=== PATIENT | male | born 1965 | race Caucasian/White ===

== ENCOUNTER 2019-02-20 20:00 | Inpatient (IN) | payer BC ==
[2019-02-20] MEDS: PROPOFOL 10 MG/ML 20 ML VIAL IV ONE ×2 (20:03→21:19)
[2019-02-20 20:09] LABS: Glucose,Whole Blood 205 mg/dL (75-99)
[2019-02-20] MEDS ORDERED: LIDOCAINE 1% INJ 10MG/ML (20 ML MDV) ONE (20:23)
--- NOTE | 2019-02-20 20:30 | ED ---
CPR HPI - General Stated Complaint: Cardiac Arrest Time Seen by Provider: 02/20/19 20:00 Source: EMS, RN notes reviewed Mode of arrival: EMS - History of Present Illness Initial Comments: 20:00 this a 53-year-old male with an unknown past medical history who apparently is been suffering from dyspnea and per EMS diagnosed with pneumonia about a week ago. He was apparently feeling more dyspneic tonight he was also apparently drinking alcohol family called 911. In route the patient collapsed and quit breathing. CPR was initiated patient was found to be in V. fib. He was shocked once with apparently no success he was pulseless and apneic CPR was continued. Upon arrival the patient was found to be unresponsive with CPR and pulseless. Patient had gotten 324 mg aspirin prior to the collapse. Is unknown if he has any ALLERGIES or is on any medications or if he smokes. MD Complaint: other - Related Data Home Medications Medication Instructions Recorded Confirmed Aspirin EC [Ecotrin] 325 mg PO DAILY PRN 02/20/19 02/20/19 Ibuprofen [Motrin Ib] 400 mg PO Q6H PRN 02/20/19 02/20/19 guaiFENesin SYRUP 100MG/5ML 200 mg PO Q6H PRN 02/20/19 02/20/19 [Robitussin] guaiFENesin [Mucinex] 600 mg PO BID PRN 02/20/19 02/20/19 Allergies Allergy/AdvReac Type Severity Reaction Status Date / Time No Known Allergies Allergy Verified 02/20/19 21:54 Review of Systems ROS Statement: Those systems with pertinent positive or pertinent negative responses have been documented in the HPI. ROS Other: All systems not noted in ROS Statement are negative. Limitations: ROS unobtainable due to patients medical condition General Exam - General Exam Comments Initial Comments: Is a well-developed well-nourished unresponsive male who was apneic and pulseless at this time. CPR progress Limitations: altered mental status General appearance: other (Unresponsive) Head exam: Present: atraumatic, normocephalic, normal inspection Eye exam: Present: other (Pupils dilated and sluggish) ENT exam: Present: other (Partial's in place small amount of posterior congestion) Neck exam: Present: normal inspection Respiratory exam: Present: other (Apneic without respiratory [id number]) Cardiovascular Exam: Present: other (Initially pulseless) GI/Abdominal exam: Present: distended (No masses) Rectal exam: Present: deferred Extremities exam: Present: other (No peripheral pulses). Absent: normal capillary refill Back exam: Present: normal inspection Neurological exam: Present: other (Responsive) Psychiatric exam: Present: other (Unresponsive) Skin exam: Present: mottled Course - Reevaluation(s) Reevaluation #1: 02/20/19 20:26 The patient was noted be pulseless when he was hooked up to the monitor he was still in V. fib he was defibrillated with 200 J CPR was continued. Patient did regain pulses. A STEMI alert was called prior to the patient arriving at the hospital. Dr. Ferguson was in the emergency department right after the patient had ROSC. This lady EKG done after the best revealed ST elevation in the anterolateral leads consistent with an acute STEMI. This is consistent with a pre-arrest EKG submitted by EMS. EKG showed a ventricular rate [address]-T QT since QTC 294 43 low-voltage Reevaluation #2: 02/20/19 20:29 Patient did require propofol for sedation his partials were removed the time of intubation. Repeat EKG showed a sinus tachycardia rate of 141. Interval 1:30 QRS duration 80 QT since QTC 292/447elevation in the anterolateral leads c onsistent with the initial EKGs. 02/20/19 20:36 The case with and she discuss with Dr. Moore Reevaluation #3: 02/20/19 23:02 I did discuss the findings with patient's family who did arrive. Patient does have a history of 2 pack a day smoking as well as alcohol abuse with up to 3/5s of liquor and multiple cases of beer per week. I did discuss the findings and the progression of events with the patient's family members were present Procedures - Intubation Laryngoscope: fiber optic video scope Size: 4 ET Tube Size: 8 ET Tube Uncuffed: No (Left) Tube Secured Depth (cm): 23 Tube Secured Location: lips Tube Placement Confirmation: visualized tube passing through cords, equal breath sounds bilaterally Patient Tolerated Procedure: no complications Intubation Complications: none Medical Decision Making - Lab Data Result diagrams: 02/20/19 20:27 02/20/19 20:27 Lab Results 02/20/19 02/20/19 02/20/19 Range/Units 20:07 20:27 20:27 WBC 25.6 H (3.8-10.6) k/uL RBC 5.38 (4.30-5.90) m/uL Hgb 17.1 (13.0-17.5) gm/dL Hct 52.2 (39.0-53.0) % MCV 97.0 (80.0-100.0) fL MCH 31.8 (25.0-35.0) pg MCHC 32.8 (31.0-37.0) g/dL RDW 12.4 (11.5-15.5) % Plt Count 296 (150-450) k/uL Neutrophils % (Manual) 53 % Band Neutrophils % 1 % Lymphocytes % (Manual) 43 % Eosinophils % (Manual) 3 % Neutrophils # (Manual) 13.80 H (1.3-7.7) k/uL Lymphocytes # (Manual) 11.01 H (1.0-4.8) k/uL Eosinophils # (Manual) 0.77 H (0-0.7) k/uL Nucleated RBCs 0 (0-0) /100 WBC Manual Slide Review Performed Toxic Granulation Present RBC Morphology Normal PT (9.0-12.0) sec INR (<1.2) APTT (22.0-30.0) sec Sodium 143 (137-145) mmol/L Potassium 4.3 (3.5-5.1) mmol/L Chloride 104 (98-107) mmol/L Carbon Dioxide 14 L (22-30) mmol/L Anion Gap 25 mmol/L BUN 18 (9-20) mg/dL Creatinine 1.46 H (0.66-1.25) mg/dL Est GFR (CKD-EPI)AfAm 62 (>60 ml/min/1.73 sqM) Est GFR (CKD-EPI)NonAf 54 (>60 ml/min/1.73 sqM) Glucose 223 H (74-99) mg/dL POC Glucose (mg/dL) 205 H (75-99) mg/dL POC Glu Margarine Churn Operator Audrey Bradley Plasma Lactic Acid Cristopher (0.7-2.0) mmol/L Calcium 10.3 H (8.4-10.2) mg/dL Total Bilirubin 0.5 (0.2-1.3) mg/dL AST 225 H (17-59) U/L ALT 271 H (21-72) U/L Alkaline Phosphatase 70 (38-126) U/L Total Creatine Kinase (55-170) U/L CK-MB (CK-2) (0.0-2.4) ng/mL CK-MB (CK-2) Rel Index Troponin I (0.000-0.034) ng/mL Total Protein 8.1 (6.3-8.2) g/dL Albumin 4.8 (3.5-5.0) g/dL Amylase 63 (30-110) U/L Lipase 244 (23-300) U/L Serum Alcohol 211 H* mg/dL Blood Type Blood Type Recheck Bld Type Recheck Status Antibody Screen Spec Expiration Date 02/20/19 02/20/19 02/20/19 Range/Units 20:27 20:27 20:27 WBC (3.8-10.6) k/uL RBC (4.30-5.90) m/uL Hgb (13.0-17.5) gm/dL Hct (39.0-53.0) % MCV (80.0-100.0) fL MCH (25.0-35.0) pg MCHC (31.0-37.0) g/dL RDW (11.5-15.5) % Plt Count (150-450) k/uL Neutrophils % (Manual) % Band Neutrophils % % Lymphocytes % (Manual) % Eosinophils % (Manual) % Neutrophils # (Manual) (1.3-7.7) k/uL Lymphocytes # (Manual) (1.0-4.8) k/uL Eosinophils # (Manual) (0-0.7) k/uL Nucleated RBCs (0-0) /100 WBC Manual Slide Review Toxic Granulation RBC Morphology PT 10.2 (9.0-12.0) sec INR 0.9 (<1.2) APTT 24.5 (22.0-30.0) sec Sodium (137-145) mmol/L Potassium (3.5-5.1) mmol/L Chloride (98-107) mmol/L Carbon Dioxide (22-30) mmol/L Anion Gap mmol/L BUN (9-20) mg/dL Creatinine (0.66-1.25) mg/dL Est GFR (CKD-EPI)AfAm (>60 ml/min/1.73 sqM) Est GFR (CKD-EPI)NonAf (>60 ml/min/1.73 sqM) Glucose (74-99) mg/dL POC Glucose (mg/dL) (75-99) mg/dL POC Glu Margarine Churn Operator ID Plasma Lactic Acid Cristopher (0.7-2.0) mmol/L Calcium (8.4-10.2) mg/dL Total Bilirubin (0.2-1.3) mg/dL AST (17-59) U/L ALT (21-72) U/L Alkaline Phosphatase (38-126) U/L Total Creatine Kinase 375 H (55-170) U/L CK-MB (CK-2) 1.7 (0.0-2.4) ng/mL CK-MB (CK-2) Rel Index 0.5 Troponin I <0.012 (0.000-0.034) ng/mL Total Protein (6.3-8.2) g/dL Albumin (3.5-5.0) g/dL Amylase (30-110) U/L Lipase (23-300) U/L Serum Alcohol mg/dL Blood Type A Positive Blood Type Recheck No Previous Record Bld Type Recheck Status CABO Indicated Antibody Screen NEGATIVE Spec Expiration Date 02/23/2019232602/20/19 Range/Units 20:30 WBC (3.8-10.6) k/uL RBC (4.30-5.90) m/uL Hgb (13.0-17.5) gm/dL Hct (39.0-53.0) % MCV (80.0-100.0) fL MCH (25.0-35.0) pg MCHC (31.0-37.0) g/dL RDW (11.5-15.5) % Plt Count (150-450) k/uL Neutrophils % (Manual) % Band Neutrophils % % Lymphocytes % (Manual) % Eosinophils % (Manual) % Neutrophils # (Manual) (1.3-7.7) k/uL Lymphocytes # (Manual) (1.0-4.8) k/uL Eosinophils # (Manual) (0-0.7) k/uL Nucleated RBCs (0-0) /100 WBC Manual Slide Review Toxic Granulation RBC Morphology PT (9.0-12.0) sec INR (<1.2) APTT (22.0-30.0) sec Sodium (137-145) mmol/L Potassium (3.5-5.1) mmol/L Chloride (98-107) mmol/L Carbon Dioxide (22-30) mmol/L Anion Gap mmol/L BUN (9-20) mg/dL Creatinine (0.66-1.25) mg/dL Est GFR (CKD-EPI)AfAm (>60 ml/min/1.73 sqM) Est GFR (CKD-EPI)NonAf (>60 ml/min/1.73 sqM) Glucose (74-99) mg/dL POC Glucose (mg/dL) (75-99) mg/dL POC Glu Margarine Churn Operator ID Plasma Lactic Acid Cristopher 12.8 H* (0.7-2.0) mmol/L Calcium (8.4-10.2) mg/dL Total Bilirubin (0.2-1.3) mg/dL AST (17-59) U/L ALT (21-72) U/L Alkaline Phosphatase (38-126) U/L Total Creatine Kinase (55-170) U/L CK-MB (CK-2) (0.0-2.4) ng/mL CK-MB (CK-2) Rel Index Troponin I (0.000-0.034) ng/mL Total Protein (6.3-8.2) g/dL Albumin (3.5-5.0) g/dL Amylase (30-110) U/L Lipase (23-300) U/L Serum Alcohol mg/dL Blood Type Blood Type Recheck Bld Type Recheck Status Antibody Screen Spec Expiration Date Critical Care Time Critical Care Time: Yes Critical Care Time: 37 minutes of critical care time which includes initial presentation history physical CPR continued. This does not include intubation time. This does include discussion with Dr. Ferguson as well as Dr. Lindquist as the patient has no known attending physician. Family is currently not available or present. Documentation of the above initial admission orders Disposition Clinical Impression: ST elevation (STEMI) myocardial infarction, Ventricular fibrillation, Cardiac arrest, Acute respiratory failure Disposition: ADMITTED IP TO THIS HOSP Condition: Critical
--- NOTE | 2019-02-20 20:39 | XR ---
EXAMINATION: XR chest 1V portable DATE AND TIME: 02/20/2019 8:24 PM CLINICAL INDICATION: PHH; chest pain; cardiac arrest. TECHNIQUE: AP portable supine chest x-ray COMPARISON: None FINDINGS: Endotracheal tube tip superimposed trachea. EKG leads noted. There is a fine reticular pattern moderately silhouetting the pulmonary vasculature bilaterally consi stent with interstitial phase pulmonary edema. The diaphragms are elevated consistent with low lung inflation at the moment of x-ray exposure. Cardiac silhouette is borderline enlarged. Thoracic aorta appears tortuous throughout its extent. No acute bony or soft tissue findings evident. No abnormal gas collections are seen on the supine radiograph. IMPRESSION: Post intubation CXR with evident interstitial phase pulmonary edema.
[2019-02-20 20:41] LABS: HCT 52.2 % (39.0-53.0); HGB 17.1 gm/dL (13.0-17.5); MCH 31.8 pg (25.0-35.0); MCHC 32.8 g/dL (31.0-37.0); Platelet Count 296 k/uL (150-450); RBC 5.38 m/uL (4.30-5.90); RDW 12.4 % (11.5-15.5); WBC 25.6 k/uL (3.8-10.6)
[2019-02-20 20:42] LABS: INR 0.9 (<1.2); Partial Thromboplastin Time 24.5 sec (22.0-30.0); Prothrombin Time 10.2 sec (9.0-12.0)
[2019-02-20 20:47] LABS: Albumin 4.8 g/dL (3.5-5.0); Calcium 10.3 mg/dL (8.4-10.2); Creatine Kinase 375 U/L (55-170); Potassium 4.3 mmol/L (3.5-5.1); Total Bilirubin 0.5 mg/dL (0.2-1.3); Total Protein 8.1 g/dL (6.3-8.2)
[2019-02-20] MEDS ORDERED: LIDOCAINE 1% INJ 10MG/ML (20 ML MDV) SQ ONE (20:47)
[2019-02-20] MEDS ORDERED: HEPARIN SODIUM 1,000 UN/ML (10ML VL) IV ONE ×2 (20:50→21:10)
[2019-02-20] MEDS ORDERED: SODIUM CHLORIDE 0.9% 1,000 ML IV ONE (20:51)
--- NOTE | 2019-02-20 20:51 | CONS ---
CONSULTATION CHIEF COMPLAINT: Acute anterior wall PA. Eriberto Garza is a 53-year-old gentleman who was initially picked up by the EMS for ETOH intoxication. While in the ambulance, developed sudden onset chest pain and the EKG showed ST-segment elevation in the precordial leads suggestive of acute anterolateral myocardial infarction. I am seeing the patient in the ER. After he arrived in the emergency room, he had a cardiac arrest, had to be resuscitated, intubated, vented, sedated. I do not have any information on the patient. There is no family member with him. I am told the patient is not on any prescription medications. Allergies we do not know. Family history and social history: We are not able to obtain. REVIEW OF SYSTEMS: We are not able to obtain. PHYSICAL EXAM: The patient is intubated on vent. Heart rate is around 120 beats per minute. Blood pressure is 130/82, respiratory rate is 24. Chest exam reveals diminished air entry at the bases. Heart exam reveals first and second heart sounds. No gallop. Has a systolic murmur at the left lower sternal border. Abdomen is soft. Exam of extremities did not reveal any edema. Peripheral pulses are palpable. LABORATORY DATA: Labs are pending at this time. ASSESSMENT: 1. Acute anterolateral myocardial infarction. 2. History of ETOH intoxication. PLAN: Patient will undergo emergent cardiac catheterization with a view to performing primary angioplasty. The patient is critically ill. Prognosis is guarded. ARIAS / TUTU: [id number] /
[2019-02-20 20:59] LABS: Band Neutrophils % 1 %; Eosinophils # (M) 0.77 k/uL (0-0.7); Lymphocytes # (M) 11.01 k/uL (1.0-4.8); Neutrophils % (M) 53 %; Nucleated Red Blood Cells 0 /100 WBC (0-0); Total Cells Counted 100; Toxic Granulation Present
[2019-02-20] MEDS ORDERED: HEPARIN SODIUM 1,000 UN/ML (10ML VL) ONE (21:00)
[2019-02-20 21:01] LABS: Creatine Kinase MB 1.7 ng/mL (0.0-2.4); Troponin I <0.012 ng/mL (0.000-0.034)
[2019-02-20] MEDS ORDERED: TIROFIBAN 12.5MG-250ML NS 250 ML IV ONE (21:10)
[2019-02-20] MEDS ORDERED: TIROFIBAN BOLUS 12.5MG/250 ML BAG IV ONE (21:10)
[2019-02-20] MEDS ORDERED: EMPTY BAG 1 BAG with PROPOFOL 1,000 MG IV SCH (21:15)
--- NOTE | 2019-02-20 21:15 | CC ---
CARDIAC CATHETERIZATION REPORT INDICATION: Acute anterior wall myocardial infarction. PROCEDURE NOTE: After obtaining informed consent, left heart catheterization and coronary angiogram were performed via the right femoral artery using standard Chen catheters. Patient tolerated the procedure well without any obvious immediate complications. He is currently intubated and on vent. FINDINGS: HEMODYNAMICS: Left ventricular end-diastolic pressures are obtained. LEFT VENTRICULOGRAM: Left ventriculogram is not performed. ANGIOGRAPHIC DATA: LEFT MAIN CORONARY ARTERY: Left main coronary artery is a normal-sized vessel and is free of stenosis. Divides into left anterior descending coronary artery and circumflex coronary artery. LEFT ANTERIOR DESCENDING CORONARY ARTERY: LAD is totally occluded in its proximal portion. CIRCUMFLEX CORONARY ARTERY: Circumflex coronary artery shows a 95% focal stenosis. RIGHT CORONARY ARTERY: Right coronary artery was subselectively engaged. He has a large conus branch and catheter was repeatedly entering into the conus branch. However we did not see any significant stenotic lesions. It is a large dominant vessel. CONCLUSIONS: 1. 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 2. 90% stenosis involving circumflex coronary artery. 3. Large dominant right coronary artery. PLAN: Patient will undergo angioplasty of the LAD. MMODL / IJN: [id number] /
[2019-02-20] MEDS ORDERED: IOPAMIDOL-370 125ML BTL INJ ONE ×2 (21:26→21:46)
[2019-02-20] MEDS ORDERED: TICAGRELOR 90 MG TAB OG-TUBE ONE (21:46)
[2019-02-20] MEDS ORDERED: IOPAMIDOL-370 100ML BTL INJ ONE (21:46)
[2019-02-20] MEDS ORDERED: TICAGRELOR 90 MG TAB ONE (21:49)
[2019-02-20] MEDS ORDERED: FUROSEMIDE 10 MG/ML 4 ML VIAL ONE (21:52)
[2019-02-20] MEDS ORDERED: FUROSEMIDE 10 MG/ML 4 ML VIAL IV ONE (22:00)
[2019-02-20 22:02] LABS: ABG Base Excess -12.4 mmol/L; ABG HCO3 15 mmol/L (21-25); ABG Oxygen Saturation 99.6 % (94-97); ABG PCO2 37 mmHg (35-45); ABG PH 7.22 (7.35-7.45); ABG PO2 244 mmHg (83-108); ABG TCO2 16 mmol/L (19-24)
[2019-02-20] MEDS ORDERED: ZOLPIDEM 5 MG TAB PO PRN (22:02)
[2019-02-20] MEDS ORDERED: NITROGLYCERIN SL TABS 0.4 MG TAB SUBLINGUAL PRN (22:02)
[2019-02-20] MEDS ORDERED: MAG HYDROX/AL HYDROX/SIMETH 30 ML CUP PO PRN (22:02)
[2019-02-20] MEDS ORDERED: ATROPINE SULFATE 0.1 MG/ML 10ML SYRINGE IV PRN (22:02)
[2019-02-20] MEDS ORDERED: RX INFO: IV CONTRAST WAS GIVEN 1 EACH MISC MISCELLANE PRN (22:02)
[2019-02-20] MEDS ORDERED: SODIUM BICARB 8.4% 50 ML SYR (1 MEQ/ML) IV ONE (22:09)
[2019-02-20 22:23] LABS: Allen Test Performed? no
[2019-02-20] MEDS: PROPOFOL 1,000 MG in EMPTY BAG 1 BAG IV SCH (22:30)
[2019-02-20] MEDS: SODIUM CHLORIDE 0.9% 1,000 ML IV SCH (22:30)
[2019-02-20] MEDS: TIROFIBAN 12.5MG-250ML NS 250 ML IV SCH (22:30)
[2019-02-20 22:47] LABS: Glucose,Whole Blood 137 mg/dL (75-99)
--- NOTE | 2019-02-20 23:15 | PTCA ---
PERCUTANEOUSTRANS CORORONARY ANGIOGRAPHY DATE OF SERVICE: 02/20/2019. PROCEDURE: 1. PTCA and stenting of a totally occluded proximal LAD performed in the setting of an acute anterior myocardial infarction with reperfusion accomplished in 65 minutes. 2. PTCA and stenting of proximal circumflex with a drug-eluting stent. PERFORMED BY: Dr. Lonnie James. SEDATION: Moderate conscious sedation time was 62 minutes. The patient was intubated. He was placed on a Diprivan drip. His oxygen saturation, hemodynamics and EKG were monitored closely. CLINICAL INFORMATION: Mr. Eriberto Garza is a gentleman who presented through EMS with acute anterior VT, was seen by Dr. Ferguson who performed the cardiac catheterization. Study revealed a totally occluded proximal/mid LAD with about 80% lesion in the proximal circumflex. RCA was free of significant disease. He was advised intervention of the LAD that was performed expeditiously. PROCEDURE NOTE: The existing 6-Turkish introducer in the right femoral artery was used to perform procedure. I used a standard left Chen guide catheter of 6-Turkish caliber to cannulate the left main artery. A run-through wire was used to cross the lesion. A 3.0 caliber 12 mm Trek balloon was used to pre-dilate the lesion. There was a significant amount of thrombus. The patient was administered heparin and also had an Aggrastat bolus and infusion. His ACT was about 284. He also received 180 mg of Brilinta at the end of the procedure after securing a good orogastric tube under fluoroscopic guidance. I also checked LV pressures using a pigtail catheter and LV end- diastolic pressure was about 36 mmHg. There was substantial thrombus burden in the LAD. I placed an 18 mm long 3.25 caliber Xience stent and noted that there was a thrombus distally. I went into the diagonal branch with wire and just gave dilatation to the midportion of the diagonal branch. After some deliberation, I ended up placing an additional stent telescoping to the previous stent of 3.25 caliber 8 mm length and this stent jailed the diagonal branch, but the flow in the diagonal was brisk. Overall angiographic result was excellent. I also went ahead and addressed the circumflex lesion with the same wire and without predilatation an 8 mm long 3.5 caliber Xience stent was deployed at 12 atmospheres. Excellent angiographic result was achieved without complication. The sheath was taken out and Angio-Seal device used to secure hemostasis. The patient was hemodynamically stable. He will be sent to the ICU and I went and spoke to the family members. Excellent angiographic result was achieved. The patient's overall condition still remains critical. Prognosis remains guarded. This was explained to the family. Patient will be on dual antiplatelet therapy and his LV end-diastolic pressure was elevated 36 mmHg without any gradient. I gave him 40 mg of Lasix IV push. He also received half an amp of bicarb intravenously. Prognosis remains poor. MMODL / IJN: [id number] /
[2019-02-20 23:17] LABS: ABG Base Excess -8.9 mmol/L; ABG HCO3 18 mmol/L (21-25); ABG Oxygen Saturation 99.1 % (94-97); ABG PCO2 43 mmHg (35-45); ABG PH 7.24 (7.35-7.45); ABG PO2 158 mmHg (83-108); ABG TCO2 20 mmol/L (19-24); Allen Test Performed? Yes
[2019-02-21 04:49] LABS: ABG Base Excess -5.6 mmol/L; ABG HCO3 20 mmol/L (21-25); ABG Oxygen Saturation 99.4 % (94-97); ABG PCO2 36 mmHg (35-45); ABG PH 7.36 (7.35-7.45); ABG PO2 180 mmHg (83-108); ABG TCO2 21 mmol/L (19-24); Allen Test Performed? Yes
[2019-02-21 04:51] LABS: Basophils % (A) 0 %; Eosinophils # (A) 0.1 k/uL (0-0.7); Eosinophils % (A) 0 %; HCT 46.3 % (39.0-53.0); HGB 15.8 gm/dL (13.0-17.5); Lymphocytes # (A) 1.5 k/uL (1.0-4.8); Lymphocytes % (A) 9 %; MCH 31.8 pg (25.0-35.0); MCHC 34.1 g/dL (31.0-37.0); MCV 93.1 fL (80.0-100.0); Monocytes # (A) 0.7 k/uL (0-1.0); Monocytes % (A) 4 %; Neutrophils # (A) 14.3 k/uL (1.3-7.7); Neutrophils % (A) 85 %; Platelet Count 257 k/uL (150-450); RBC 4.97 m/uL (4.30-5.90); RDW 12.6 % (11.5-15.5); WBC 16.8 k/uL (3.8-10.6)
[2019-02-21 05:02] LABS: African American GFR (CKD) >90 (>60 ml/min/1.73 sqM); Anion Gap 14 mmol/L; Blood Urea Nitrogen 22 mg/dL (9-20); Calcium 8.8 mg/dL (8.4-10.2); Carbon Dioxide 16 mmol/L (22-30); Chloride 109 mmol/L (98-107); Glucose 146 mg/dL (74-99); Non-African American GFR(CKD) 84 (>60 ml/min/1.73 sqM); Potassium 4.9 mmol/L (3.5-5.1); Sodium 139 mmol/L (137-145)
[2019-02-21] MEDS ORDERED: NALOXONE 0.4 MG/ML 1 ML VIAL IV PRN (06:50)
[2019-02-21] MEDS ORDERED: LORazepam 2 MG/ML INJ IV PRN (07:36)
[2019-02-21 07:42] LABS: Appearance,Urine Turbid (Clear); Bilirubin,Urine Negative (Negative); Blood,Urine Moderate (Negative); Color,Urine Yellow; Glucose,Urine (UA) Negative (Negative); Ketones,Urine 1+ (Negative); Leukocyte Esterase,Urine Trace (Negative); Nitrite,Urine Negative (Negative); PH, Urine 5.5 (5.0-8.0); Protein,Urine Negative (Negative); RBC,Urine 44 /hpf (0-5); Specific Gravity,Urine 1.041 (1.001-1.035); Squamous Epithelial Cell,Urine 2 /hpf (0-4); Urobilinogen,Urine <2.0 mg/dL (<2.0); WBC,Urine 25 /hpf (0-5)
--- NOTE | 2019-02-21 07:48 | P.HPIM ---
History of Present Illness This is a pleasant 53 years old male with no significant past medical history. Patient could not provide information which were obtained from the medical records and his staff. Documents patient has been diagnosed with pneumonia for about a week, also patient is a cigarette smoker about 2 packs per day and alcohol drinker with both liquor and beer. Patient was getting more dyspneic last night however he was drinking alcohol. Family called 911 . In route patient suffered cardiopulmonary arrest with a showing V. fib, patient underwent resuscitation with CPR and cardiac electric shock as he has been having unresponsive and pulseless. Aspirin 324 mg was provided for the patient. I'll refer to the emergency room patient was still pending. And pulseless, he received more electric shock and CPR, eventually patient and his pills. EKG showed acute STEMI and STEMI alert was called. Patient admitted intubation and mechanical ventilation. He underwent emergent cardiac cath showing total occlusion of the left anterior descending artery and 90% stenosis of the circumflex coronary artery with large dominant right coronary artery Currently patient remains in the ICU, his moderately tachycardic with heart rate 115-120, blood pressure 121/79, breathing rate 18, saturating 96% with FiO2 of 70%, patient is afebrile. Labs showing WBC of 16.8 K, hemoglobin 15.8. Electrolytes are within normal limits and creatinine 1.0, elevated lactic acid 4.6 and 3.0, elevated troponin 146. Elevated liver enzymes with AST 25 and ALT 271. Serum alcohol level was 211. Chest x-ray: Evidence of interstitial face pulmonary edema Patient currently on aspirin 81 mg, Lipitor 80 mg and Brillinta. As well as normal saline 75 mL/h This morning patient have a low-grade temperature of 99.9, patient has a Lizama catheter were don't repeat urinalysis. Patient has NG tube with a few millimeters of dark-colored aspirated fluid, or going to check occult blood in sample. Patient is currently moderately tachycardic around 120 Review of Systems N/a Past Medical History Past Medical History: Unable to Obtain History of Any Multi-Drug Resistant Organisms: None Reported Past Surgical History: Unable to Obtain Past Anesthesia/Blood Transfusion Reactions: No Reported Reaction Past Psychological History: No Psychological Hx Reported Smoking Status: Unknown if ever smoked Medications and Allergies Home Medications Medication Instructions Recorded Confirmed Type Aspirin EC [Ecotrin] 325 mg PO DAILY PRN 02/20/19 02/20/19 History Ibuprofen [Motrin Ib] 400 mg PO Q6H PRN 02/20/19 02/20/19 History guaiFENesin SYRUP 100MG/5ML 200 mg PO Q6H PRN 02/20/19 02/20/19 History [Robitussin] guaiFENesin [Mucinex] 600 mg PO BID PRN 02/20/19 02/20/19 History Allergies Allergy/AdvReac Type Severity Reaction Status Date / Time No Known Allergies Allergy Verified 02/20/19 21:54 Physical Exam Vitals: Vital Signs Temp Pulse Resp BP Pulse Ox 02/21/19 05:00 116 H 18 115/77 97 02/21/19 04:00 98.3 F 115 H 20 110/78 95 02/21/19 03:00 112 H 17 103/72 96 02/21/19 02:00 112 H 16 98/71 97 02/21/19 01:00 112 H 16 118/75 97 02/21/19 00:00 97.7 F 106 H 16 90/70 97 02/20/19 23:00 111 H 18 102/74 96 Intake and Output 02/20/19 02/20/19 02/21/19 14:59 22:59 06:59 Intake Total 405 633.0 Output Total 650 1200 Balance -245 -567.0 Intake: IV 330 Intake, IV Titration 75 633.0 Amount Sodium Chloride 0.9% 1, 75 525 000 ml @ 75 mls/hr IV . [id number] SUKHDEEP Rx#:[id number] Tirofiban 12.5MG-250Ml Ns 108.0 250 ml @ 0.15 MCG/KG/MIN 21.6 mls/hr IV .[id number] SUKHDEEP Rx#:[id number] Output: Gastric Drainage 450 Urine 200 1200 Other: Voiding Method Indwelling Catheter Weight 121.8 kg 121.8 kg -GENERAL: The patient is intubated and sedated. He is currently on mechanical ventilation HEENT: Pupils are round and equally reacting to light. EOMI. No scleral icterus. No conjunctival pallor. Normocephalic, atraumatic. No pharyngeal erythema. No thyromegaly. CARDIOVASCULAR: S1 and S2 present. No murmurs, rubs, or gallops. PULMONARY: Chest is clear to auscultation, no wheezing or crackles. -ABDOMEN: Soft, nontender, nondistended, normoactive bowel sounds. No palpable organomegaly. NG tube is in place. Lizama catheter is in place MUSCULOSKELETAL: No joint swelling or deformity. EXTREMITIES: No cyanosis, clubbing, or pedal edema. NEUROLOGICAL: Gross neurological examination did not reveal any focal deficits. SKIN: No rashes. No petechiae Results CBC & Chem 7: 02/21/19 04:28 02/21/19 04:28 Labs: Abnormal Lab Results - Last 24 Hours (Table) 02/20/19 02/20/19 02/20/19 Range/Units 20:07 20:27 20:27 WBC 25.6 H (3.8-10.6) k/uL Neutrophils # (1.3-7.7) k/uL Neutrophils # (Manual) 13.80 H (1.3-7.7) k/uL Lymphocytes # (Manual) 11.01 H (1.0-4.8) k/uL Eosinophils # (Manual) 0.77 H (0-0.7) k/uL ABG pH (7.35-7.45) ABG pO2 (83-108) mmHg ABG HCO3 (21-25) mmol/L ABG Total CO2 (19-24) mmol/L ABG O2 Saturation (94-97) % Chloride (98-107) mmol/L Carbon Dioxide 14 L (22-30) mmol/L BUN (9-20) mg/dL Creatinine 1.46 H (0.66-1.25) mg/dL Glucose 223 H (74-99) mg/dL POC Glucose (mg/dL) 205 H (75-99) mg/dL Plasma Lactic Acid Cristopher (0.7-2.0) mmol/L Calcium 10.3 H (8.4-10.2) mg/dL AST 225 H (17-59) U/L ALT 271 H (21-72) U/L Total Creatine Kinase (55-170) U/L Serum Alcohol 211 H* mg/dL 02/20/19 02/20/19 02/20/19 Range/Units 20:27 20:30 21:57 WBC (3.8-10.6) k/uL Neutrophils # (1.3-7.7) k/uL Neutrophils # (Manual) (1.3-7.7) k/uL Lymphocytes # (Manual) (1.0-4.8) k/uL Eosinophils # (Manual) (0-0.7) k/uL ABG pH 7.22 L (7.35-7.45) ABG pO2 244 H (83-108) mmHg ABG HCO3 15 L (21-25) mmol/L ABG Total CO2 16 L (19-24) mmol/L ABG O2 Saturation 99.6 H (94-97) % Chloride (98-107) mmol/L Carbon Dioxide (22-30) mmol/L BUN (9-20) mg/dL Creatinine (0.66-1.25) mg/dL Glucose (74-99) mg/dL POC Glucose (mg/dL) (75-99) mg/dL Plasma Lactic Acid Cristopher 12.8 H* (0.7-2.0) mmol/L Calcium (8.4-10.2) mg/dL AST (17-59) U/L ALT (21-72) U/L Total Creatine Kinase 375 H (55-170) U/L Serum Alcohol mg/dL 02/20/19 02/20/19 02/21/19 Range/Units 22:35 23:15 00:16 WBC (3.8-10.6) k/uL Neutrophils # (1.3-7.7) k/uL Neutrophils # (Manual) (1.3-7.7) k/uL Lymphocytes # (Manual) (1.0-4.8) k/uL Eosinophils # (Manual) (0-0.7) k/uL ABG pH 7.24 L (7.35-7.45) ABG pO2 158 H (83-108) mmHg ABG HCO3 18 L (21-25) mmol/L ABG Total CO2 (19-24) mmol/L ABG O2 Saturation 99.1 H (94-97) % Chloride (98-107) mmol/L Carbon Dioxide (22-30) mmol/L BUN (9-20) mg/dL Creatinine (0.66-1.25) mg/dL Glucose (74-99) mg/dL POC Glucose (mg/dL) 137 H (75-99) mg/dL Plasma Lactic Acid Cristopher 4.6 H* (0.7-2.0) mmol/L Calcium (8.4-10.2) mg/dL AST (17-59) U/L ALT (21-72) U/L Total Creatine Kinase (55-170) U/L Serum Alcohol mg/dL 02/21/19 02/21/19 02/21/19 Range/Units 04:28 04:28 04:28 WBC 16.8 H (3.8-10.6) k/uL Neutrophils # 14.3 H (1.3-7.7) k/uL Neutrophils # (Manual) (1.3-7.7) k/uL Lymphocytes # (Manual) (1.0-4.8) k/uL Eosinophils # (Manual) (0-0.7) k/uL ABG pH (7.35-7.45) ABG pO2 (83-108) mmHg ABG HCO3 (21-25) mmol/L ABG Total CO2 (19-24) mmol/L ABG O2 Saturation (94-97) % Chloride 109 H (98-107) mmol/L Carbon Dioxide 16 L (22-30) mmol/L BUN 22 H (9-20) mg/dL Creatinine (0.66-1.25) mg/dL Glucose 146 H (74-99) mg/dL POC Glucose (mg/dL) (75-99) mg/dL Plasma Lactic Acid Cristopher 3.0 H* (0.7-2.0) mmol/L Calcium (8.4-10.2) mg/dL AST (17-59) U/L ALT (21-72) U/L Total Creatine Kinase (55-170) U/L Serum Alcohol mg/dL 02/21/19 Range/Units 04:44 WBC (3.8-10.6) k/uL Neutrophils # (1.3-7.7) k/uL Neutrophils # (Manual) (1.3-7.7) k/uL Lymphocytes # (Manual) (1.0-4.8) k/uL Eosinophils # (Manual) (0-0.7) k/uL ABG pH (7.35-7.45) ABG pO2 180 H (83-108) mmHg ABG HCO3 20 L (21-25) mmol/L ABG Total CO2 (19-24) mmol/L ABG O2 Saturation 99.4 H (94-97) % Chloride (98-107) mmol/L Carbon Dioxide (22-30) mmol/L BUN (9-20) mg/dL Creatinine (0.66-1.25) mg/dL Glucose (74-99) mg/dL POC Glucose (mg/dL) (75-99) mg/dL Plasma Lactic Acid Cristopher (0.7-2.0) mmol/L Calcium (8.4-10.2) mg/dL AST (17-59) U/L ALT (21-72) U/L Total Creatine Kinase (55-170) U/L Serum Alcohol mg/dL Assessment and Plan Assessment: Acute anterior lateral STEMI, status post emergent cardiac cath showing total occlusion of LAD and 90% stenosis of circumflex coronary artery Status post cardiac arrest secondary to V. fib, status post successful CPR and electric shock Acute hypoxic respiratory failure status post intubation and mechanical venti lation Alcohol abuse and risks of alcohol withdrawal Nicotine dependence Leukocytosis, mostly reactive. Improvement Elevated lactic acid. Improvement Elevated liver enzymes, mostly secondary to shock liver Plan: This is a 53 years old male who presents with cardiac arrest secondary to acute STEMI, status post cardiac cath showing CAD. Follow-up recommendation by ca rdiologist and wet pan mixer. Continue with aspirin, Brillinta and Lipitor. Vent management as per pulmonary team. Start the patient on CIWA protocol, continue with thiamine. Check occult blood and gastric aspirate. Follow-up WBC and temperature. Follow-up urinalysis Labs and medication were reviewed.. Continue same treatment. Continue with symptomatic treatment. Resume home medication. Monitor lytes and vitals. DVT and GI prophylaxis. Further recommendations of the clinical course of the patient DVT prophylaxis: aspirin and Brillinta GI Prophylaxis: Protonix Prognosis is guarded
--- NOTE | 2019-02-21 07:57 | XR ---
EXAMINATION TYPE: XR chest 1V portable DATE OF EXAM: 02/21/2019 HISTORY: Shortness of breath. COMPARISON: 02/20/2019 TECHNIQUE: Single view of the chest is submitted. FINDINGS: NG tube is seen coursing into the stomach. Endotracheal tube is appropriately placed. Improved appearance of the lungs with some mild atelectasis or infiltrate persisting at the right med ial lung base. The heart is stable. Hilar and mediastinal structures are within normal limits. Degenerative changes are seen of the dorsal spine. IMPRESSION: 1. Improved appearance of the lungs with some mild atelectasis or infiltrate persisting at the right medial lung base.
[2019-02-21] MEDS: CHLORHEXIDINE GLUCONATE 15 ML CUP MUCOUS MEM SCH ×2 (08:23→21:07)
[2019-02-21] MEDS: LORazepam 2 MG/ML INJ IV PRN ×4 (08:23→21:05)
[2019-02-21] MEDS ORDERED: PANTOPRAZOLE 40 MG/10 ML VIAL IVP SCH (09:00)
[2019-02-21 09:28] LABS: Basophils % (A) 0 %; Eosinophils % (A) 0 %; HCT 44.3 % (39.0-53.0); HGB 15.5 gm/dL (13.0-17.5); Lymphocytes # (A) 1.4 k/uL (1.0-4.8); Lymphocytes % (A) 8 %; MCH 32.1 pg (25.0-35.0); MCHC 34.9 g/dL (31.0-37.0); MCV 91.9 fL (80.0-100.0); Mean Platelet Volume 8.1; Monocytes # (A) 0.8 k/uL (0-1.0); Monocytes % (A) 5 %; Neutrophils # (A) 15.1 k/uL (1.3-7.7); Neutrophils % (A) 86 %; Platelet Count 260 k/uL (150-450); RBC 4.82 m/uL (4.30-5.90); RDW 12.5 % (11.5-15.5); WBC 17.5 k/uL (3.8-10.6)
[2019-02-21 09:39] LABS: African American GFR (CKD) >90 (>60 ml/min/1.73 sqM); Anion Gap 10 mmol/L; Blood Urea Nitrogen 26 mg/dL (9-20); Carbon Dioxide 22 mmol/L (22-30); Chloride 109 mmol/L (98-107); Glucose 144 mg/dL (74-99); Non-African American GFR(CKD) >90 (>60 ml/min/1.73 sqM); Potassium 4.5 mmol/L (3.5-5.1); Sodium 141 mmol/L (137-145)
[2019-02-21] MEDS: PROPOFOL 1,000 MG in EMPTY BAG 1 BAG IV SCH ×3 (10:10→21:15)
[2019-02-21] MEDS ORDERED: IPRATROPIUM-ALBUTEROL 3 ML NEB INHALATION PRN (10:16)
[2019-02-21] MEDS: TIROFIBAN 12.5MG-250ML NS 250 ML IV SCH (10:26)
[2019-02-21] MEDS: THIAMINE 100 MG/ML 2 ML VIAL IVP SCH (10:28)
--- NOTE | 2019-02-21 10:47 | CONS ---
CONSULTATION PULMONARY/CRITICAL CARE CONSULTATION: DATE OF CONSULTATION: 02/21/2019 REASON FOR CONSULTATION: ICU management/cardiac arrest. This is a 53-year-old male with an unknown past medical history other than chronic alcohol user and tobacco use, who apparently has been short of breath. The patient was apparently diagnosed with pneumonia about 1 week ago according the EMS when history is obtained in the emergency room. He apparently was just feeling more and more dyspneic and was apparently drinking alcohol and then finally called 911. Apparently en route, the patient collapsed and quit breathing. CPR was initiated. He was found to have a ventricular fibrillation. He was defibrillated without success. He was pulseless and apneic. CPR was continued. Upon arrival, the patient was found to be unresponsive with CPR ongoing. He was pulseless. The patient was defibrillated a second time. He was taken to the cardiovascular laboratory. There he had a catheterization which revealed a significant CAD in the LAD and circumflex coronary artery and 2 stents were placed in the LAD, 1 in the circumflex coronary artery. Another blood vessel underwent angioplasty without stent placement. The patient was then transferred to the intensive care unit. Currently, he remains on the ventilator. He is on the volume assist- control mode rate of 16. Tidal volume is 600, FiO2 of 70%, and PEEP of 5. Blood gases show a pO2 of 180, a PACO2 of 36 and a pH of 7.35. The patient is receiving saline at 75 and Diprivan at 50 mcg/kg per minute. His alcohol level was 211. He was a chronic tobacco user. Looking at the patient's ventilator, I decided to make some changes including increasing the rate from 16-24, decrease in the tidal volume from 600-450, so that we could have a low tidal volume strategy, and reducing the FiO2 from 70% to 50%. In addition, I told the nurse and the respiratory therapist that I thought the patient could come off his propofol and be considered for a weaning trial. CURRENT HOME MEDICATIONS: Apparently include aspirin, ibuprofen, Robitussin, and Mucinex. ALLERGIES: Denied. PAST MEDICAL HISTORY: Not known. He apparently has no major medical problems other than chronic alcohol use and possible underlying COPD from chronic tobacco use. Again, those are just suppositions. No history is known in regard to occupational history, family history, surgical history, additional medical history, etc. REVIEW OF SYSTEMS: This obviously could not be obtained. Of note was the fact that he apparently was complaining of being short of breath and also apparently was recently diagnosed as having "pneumonia." Current vital signs are reviewed. Temperature is a 100 degrees, heart rate is 117, respiratory rate 28, blood pressure 126/97 mean 106, saturations are 96%. Appears in no acute distress. Currently sedated. HEENT: Examination is grossly unremarkable. There is an orally placed endotracheal tube and NG tube. NECK: Supple. Full range of motion. No adenopathy. CARDIOVASCULAR: Examination reveals mild tachycardia. Heart rate about 100. He is in sinus rhythm. S1, S2 normal. Heart sounds are distant. LUNGS: Reveal a few scattered rhonchi. Breath sounds equal bilaterally. No wheezes. ABDOMEN: Soft, bowel sounds are not noted. EXTREMITIES: Intact. Minimal edema. No cyanosis or clubbing. SKIN: Without rash. NEUROLOGIC: Examination could not be adequately assessed given his current level of sedation. An initial chest x-ray showed changes of fluid overload/interstitial edema and his followup chest x-ray showed improvement. LAB DATA: Reviewed. White count is 17.5, hemoglobin is 15.5 and hematocrit 44.3, platelet count 260,000. Last blood gases were noted. Sodium 141, potassium 4.5, chloride is 109, CO2 is 22, anion gap is normal. BUN and creatinine were 26 and 0.95. His lactic acid went from 3 to 2.2. His calcium was 9 and his troponin was 146. His urine specific gravity of 1.041, 1+ ketones, trace leukocyte esterase, 44 RBCs, 25 WBCs and no bacteria. Medications are reviewed. Currently, his medications include Tylenol, aspirin, Lipitor, atropine, chlorhexidine, Ativan, Maalox, Narcan, sublingual nitroglycerin, Protonix, thiamine, Brilinta, and Ambien. ASSESSMENT: 1. Egm-tm-aiccpawl cardiopulmonary arrest, the patient initially presented with ventricular fibrillation, status post defibrillation x2 with prolonged resuscitation and eventual return of spontaneous circulation. 2. Hypoxemic respiratory failure, requiring intubation and mechanical ventilation for respiratory failure. 3. Status post cardiac catheterization with stenting of the LAD x2 and circumflex coronary artery x1. 4. History of chronic tobacco use, rule out chronic obstructive pulmonary disease. 5. Chronic alcohol use. PLAN: The patient will be giving a daily interruption of sedation. Will assess the patient to see if he might be a candidate for weaning and extubation. His medications are reviewed. Unnecessary medications are discontinued. Will continue to follow. Prognosis is guarded. No additional recommendations are made at this time. MMYANDYL / IJN: [id number] /
[2019-02-21] MEDS: TICAGRELOR 90 MG TAB PO SCH ×2 (10:50→21:07)
[2019-02-21] MEDS: ASPIRIN 81 MG PO SCH (10:50)
[2019-02-21] MEDS: IPRATROPIUM-ALBUTEROL 3 ML NEB INHALATION SCH ×4 (11:20→23:49)
--- NOTE | 2019-02-21 12:21 | PN ---
PROGRESS NOTE This patient was admitted with acute anterior wall myocardial infarction. Patient had a cardiac arrest in the emergency room, underwent cardiac catheterization and had underwent a stent to the LAD and the circumflex coronary artery. Patient currently remains intubated. The patient has some coffee-ground drainage from the NG tube. The patient's heart rate is 116 per minute, respiratory rate is 30, blood pressure is 123/70 mmHg. First and second heart sounds are normal. Lungs reveal few scattered wheezes. Patient's troponin was 146. Initial lactic acid was 3.0. Repeat lactic acid is 2.2. Patient's EKG is suggestive of acute anterior septal myocardial infarction. Echocardiogram shows minimal apical hypokinesia, but overall normal left ventricular systolic function. RECOMMENDATIONS: We will start the patient on a small dose of Lopressor 12.5 mg q.8 hourly and increase the dose as he tolerates. We will discontinue the tirofiban and continue patient on aspirin and Brilinta. MMODL / AGNESN: [id number] /
[2019-02-21] MEDS: SODIUM CHLORIDE 0.9% 1,000 ML IV SCH ×2 (13:43→23:30)
--- NOTE | 2019-02-21 16:15 | ECHOF ---
Referral Reason:Acute Ant DE PCI LAD and LCX MEASUREMENTS -------- HEIGHT: 180.3 cm WEIGHT: 119.7 kg BP: 140/91 RVIDd: 2.3 cm (< 3.3) IVSd: 1.2 cm (0.6 - 1.1) LVIDd: 4.3 cm (3.9 - 5.3) LVPWd: 1.3 cm (0.6 - 1.1) IVSs: 1.8 cm LVIDs: 3.1 cm LVPWs: 1.7 cm LA Diam: 2.7 cm (2.7 - 3.8) Ao Diam: 3.4 cm (2.0 - 3.7) MV EXCURSION: 16.312 mm (> 18.000) MV EF SLOPE: 56 mm/s (70 - 150) EPSS: 0.5 cm MV E Isak: 0.62 m/s MV DecT: 226 ms MV A Isak: 0.96 m/s MV E/A Ratio: 0.64 FINDINGS -------- Resting tachycardia (HR>100bpm). This was a technically difficult study with suboptimal views. The left ventricular size is normal. There is mild concentric left ventricular hypertrophy. Overa ll left ventricular systolic function is mild-moderately impaired with, an EF between 40 - 45 %. Ap ical anterior LV wall motion is hypokinetic. Apical lateral LV wall motion is hypokinetic. Apic al inferior LV wall motion is hypokinetic. Apical septum LV wall motion is hypokinetic. The right ventricle is normal in size. The left atrial size is normal. The right atrium is normal in size. Lumason used The aortic valve was not well visualized. The mitral valve is normal. The tricuspid valve appears structurally normal. The pulmonic valve was not well visualized. The aortic root size is normal. IVC Not well visulized. There is no pericardial effusion. CONCLUSIONS -------- 1. Resting tachycardia (HR>100bpm). 2. This was a technically difficult study with suboptimal views. 3. The left ventricular size is normal. 4. Overall left ventricular systolic function is mild-moderately impaired with, an EF between 40 - 45 %. 5. Apical anterior LV wall motion is hypokinetic. 6. Apical lateral LV wall motion is hypokinetic. 7. Apical inferior LV wall motion is hypokinetic. 8. Apical septum LV wall motion is hypokinetic. 9. The right ventricle is normal in size. 10. The left atrial size is normal. 11. The right atrium is normal in size. 12. Lumason used 13. The aortic valve was not well visualized. 14. The mitral valve is normal. 15. The tricuspid valve appears structurally normal. 16. The pulmonic valve was not well visualized. 17. The aortic root size is normal. 18. IVC Not well visulized. 19. There is no pericardial effusion. CUTTER OPERATOR BRICK: Juanis Rdz RDCS
[2019-02-21] MEDS: METOPROLOL TARTRATE 12.5 MG TAB PO SCH ×2 (16:44→21:07)
[2019-02-21] MEDS: ATORVASTATIN 80 MG TAB PO SCH (21:07)
[2019-02-21] MEDS: PANTOPRAZOLE 40 MG/10 ML VIAL IVP SCH (21:07)
[2019-02-22] MEDS: LORazepam 2 MG/ML INJ IV PRN ×4 (00:14→21:27)
[2019-02-22] MEDS: PROPOFOL 1,000 MG in EMPTY BAG 1 BAG IV SCH ×12 (00:21→23:34)
[2019-02-22] MEDS: HYDROmorphone 1 MG/ML 1 ML SYRINGE IVP PRN ×4 (01:15→23:01)
[2019-02-22] MEDS: IPRATROPIUM-ALBUTEROL 3 ML NEB INHALATION SCH ×5 (03:32→19:13)
[2019-02-22 05:15] LABS: ABG Base Excess 2.4 mmol/L; ABG HCO3 27 mmol/L (21-25); ABG Oxygen Saturation 97.1 % (94-97); ABG PCO2 44 mmHg (35-45); ABG PO2 88 mmHg (83-108); ABG TCO2 28 mmol/L (19-24); Allen Test Performed? Yes
[2019-02-22 05:39] LABS: Basophils # (A) 0.1 k/uL (0-0.2); Basophils % (A) 0 %; Eosinophils # (A) 0.1 k/uL (0-0.7); Eosinophils % (A) 1 %; HCT 39.4 % (39.0-53.0); HGB 13.6 gm/dL (13.0-17.5); Lymphocytes # (A) 2.4 k/uL (1.0-4.8); Lymphocytes % (A) 18 %; MCH 31.8 pg (25.0-35.0); MCHC 34.6 g/dL (31.0-37.0); MCV 91.9 fL (80.0-100.0); Mean Platelet Volume 8.2; Monocytes # (A) 0.9 k/uL (0-1.0); Monocytes % (A) 6 %; Neutrophils % (A) 73 %; Platelet Count 200 k/uL (150-450); RBC 4.29 m/uL (4.30-5.90); RDW 12.6 % (11.5-15.5); WBC 13.6 k/uL (3.8-10.6)
[2019-02-22 05:58] LABS: Glucose,Whole Blood 126 mg/dL (75-99)
[2019-02-22 06:14] LABS: ALT 257 U/L (21-72); AST 572 U/L (17-59); African American GFR (CKD) >90 (>60 ml/min/1.73 sqM); Albumin 3.5 g/dL (3.5-5.0); Alkaline Phosphatase 49 U/L (38-126); Anion Gap 2 mmol/L; Bilirubin, Delta 0.3 mg/dL (0.0-0.2); Bilirubin,Unconjugated 0.3 mg/dL (0.0-1.1); Blood Urea Nitrogen 25 mg/dL (9-20); Calcium 8.8 mg/dL (8.4-10.2); Carbon Dioxide 28 mmol/L (22-30); Chloride 108 mmol/L (98-107); Glucose 119 mg/dL (74-99); Non-African American GFR(CKD) 86 (>60 ml/min/1.73 sqM); Potassium 4.3 mmol/L (3.5-5.1); Sodium 138 mmol/L (137-145); Total Bilirubin 0.6 mg/dL (0.2-1.3); Total Protein 6.2 g/dL (6.3-8.2)
--- NOTE | 2019-02-22 08:17 | PN ---
PROGRESS NOTE DATE OF SERVICE: 02/22/2019 This is a 53-year-old male who we saw yesterday in consultation. He was admitted to the hospital on February 20. He apparently has no known past medical history other than the fact that he drinks alcohol on a regular basis and smokes cigarettes. He apparently was developing shortness of breath. The patient apparently was recently diagnosed with pneumonia a week prior to admission. EMS was called by himself. When they apparently arrived, he was found collapsed on the ground in cardiopulmonary arrest. CPR was initiated. He was found to have ventricular fibrillation and was defibrillated x2. He was intubated apparently in the emergency department and went to the catheterization laboratory where he had stents placed x2 in his LAD and one stent in his circumflex coronary artery. The patient was transferred to the ICU. He remains on the ventilator. Yesterday, we attempted a daily interruption of sedation for a spontaneous breathing trial, but off sedation became very agitated and dyssynchronous. He developed tachycardia, tachypnea and hypertension and was placed back on sedation. He is currently on the volume assist-control mode rate of 24, breathing 27 times a minute, tidal volume 450, FiO2 of 50%, PEEP of 5. Blood gases show pO2 of 88, pCO2 of 44, pH of 7.40. A saline IV at 75 mL an hour. Diprivan at 75 mcg/kg per minute and tube feeds are on hold. The patient will have another daily interruption of sedation today as well as an attempted spontaneous breathing trial. His alcohol level on admission was 211. He is getting propofol, Ativan per the CIWA protocol and Dilaudid p.r.n. PHYSICAL EXAMINATION: Current vital signs are reviewed. Temperature is 99.9, heart rate about 110, respiratory rate 27, blood pressure 106/71, mean 82 and saturations are 94%. GENERAL: Appears in no acute distress. Currently sedated. HEENT: Examination is grossly unremarkable. He has an orally placed endotracheal tube and NG tube. NECK: Supple. Full range of motion. No adenopathy. Neck veins are flat. CARDIOVASCULAR: Examination reveals regular rhythm and rate. S1, S2 normal. He is tachycardic. He has sinus tachycardia. LUNGS: Reveal a few scattered rhonchi. No wheezes or crackles. ABDOMEN: Soft. Bowel sounds are heard. EXTREMITIES: Are intact. Minimal edema. SKIN: Without rash. NEUROLOGIC: Examination could not be properly assessed. LABS: Labs are reviewed. White count 13.6, hemoglobin 13.6, hematocrit 39.4, platelet count 200,000. Sodium 138, potassium 4.3, chloride 108, CO2 is 28. BUN and creatinine were 25 and 0.99. His AST is 572, ALT 257. Albumin 3.5. Culture data is thus far negative. Chest x-ray cannot be visualized. MEDICATIONS: Medications are reviewed. Currently he is on Tylenol, aspirin, Lipitor, atropine p.r.n., chlorhexidine, Dilaudid, DuoNeb, Ativan, Maalox, metoprolol, Narcan, Protonix, thiamine, and Brilinta. ASSESSMENT: 1. Eld-bg-nmtdtyom cardiopulmonary arrest, secondary to ventricular fibrillation, status post defibrillation x2 with relatively prolonged resuscitation and eventual return of spontaneous circulation. 2. Hypoxemic respiratory failure, requiring intubation and mechanical ventilation for respiratory failure. 3. Rule out anoxic brain injury. 4. Status post cardiac catheterization with stenting of the left anterior descending artery x2 and circumflex coronary artery x1. 5. History of chronic tobacco and alcohol abuse. 6. Rule out chronic obstructive pulmonary disease. PLAN: The patient will have another daily interruption of sedation with a potential spontaneous breathing trial. We will resume tube feeds. He may need a CT scan of the brain and neurology consultation. We will continue to monitor his labs very closely. Will have daily chest x-rays. Again, start tube feeds today. No additional recommendations are made. He is currently getting Diprivan, Ativan via CIWA protocol and Dilaudid for pain and anxiety management. Overall prognosis remains guarded. CRITICAL CARE TIME: 36 minutes. MMODL / IJN: [id number] /
--- NOTE | 2019-02-22 08:21 | XR ---
EXAMINATION TYPE: XR chest 1V portable DATE OF EXAM: 02/22/2019 COMPARISON: Prior chest x-ray 02/21/2019 HISTORY: Intubated TECHNIQUE: Single frontal view of the chest is obtained. FINDINGS: Findings are similar to prior exam. Endotracheal tube is overlying the tracheal air column near the thoracic inlet level. There is an indwelling NG tube which tip shows placement in the left upper quadrant, there are overlying cardiac leads. Heart size is stable. Lung volumes are lower, poss ible subsegmental atelectatic changes at the lung bases. No evident pneumothorax. Patchy density also present in the right upper lobe. IMPRESSION: Correlate for pneumonia versus subsegmental atelectatic changes.
[2019-02-22] MEDS: CHLORHEXIDINE GLUCONATE 15 ML CUP MUCOUS MEM SCH ×2 (08:31→21:22)
[2019-02-22] MEDS: METOPROLOL TARTRATE 12.5 MG TAB PO SCH ×3 (08:31→21:23)
[2019-02-22] MEDS: TICAGRELOR 90 MG TAB PO SCH ×2 (08:31→21:23)
[2019-02-22] MEDS: ASPIRIN 81 MG PO SCH (08:31)
[2019-02-22] MEDS: PANTOPRAZOLE 40 MG/10 ML VIAL IVP SCH ×2 (08:31→21:22)
[2019-02-22] MEDS: THIAMINE 100 MG/ML 2 ML VIAL IVP SCH (09:24)
[2019-02-22] MEDS: FUROSEMIDE 10 MG/ML 4 ML VIAL IV SCH ×2 (11:36→16:11)
[2019-02-22] MEDS: SODIUM CHLORIDE 0.9% 1,000 ML IV SCH ×2 (11:37→16:11)
--- NOTE | 2019-02-22 11:44 | PN ---
PROGRESS NOTE This patient is status post cardiac arrest, acute anterior wall myocardial infarction with stent to the LAD and circumflex coronary artery. Patient remains intubated. Attempts to extubate him yesterday were unsuccessful. His sedation is being off. Patient remains hemodynamically stable. He is not having any more episodes of ventricular tachycardia. Echocardiogram shows evidence of mildly impaired left ventricular systolic functions. Patient's blood pressure is 100/71 mmHg, heart rate is 90 per minute. First and second heart sounds are normal. Lungs examination is clear to auscultation and percussion. Chest x-ray shows bilateral basilar infiltrate or atelectasis. Rule out any developing pneumonia. We will get procalcitonin level. MMODL / IJN: [id number] /
--- NOTE | 2019-02-22 12:15 | P.PN ---
Subjective This is a pleasant 53 years old male with no significant past medical history. Patient could not provide information which were obtained from the medical records and his staff. Documents patient has been diagnosed with pneumonia for about a week, also patient is a cigarette smoker about 2 packs per day and alcohol drinker with both liquor and beer. Patient was getting more dyspneic last night however he was drinking alcohol. Family called 911 . In route patient suffered cardiopulmonary arrest with a showing V. fib, patient underwent resuscitation with CPR and cardiac electric shock as he has been having unresponsive and pulseless. Aspirin 324 mg was provided for the patient. I'll refer to the emergency room patient was still pending. And pulseless, he received more electric shock and CPR, eventually patient and his pills. EKG s howed acute STEMI and STEMI alert was called. Patient admitted intubation and mechanical ventilation. He underwent emergent cardiac cath showing total occlusion of the left anterior descending artery and 90% stenosis of the circumflex coronary artery with large dominant right coronary artery Currently patient remains in the ICU, his moderately tachycardic with heart rate 115-120, blood pressure 121/79, breathing rate 18, saturating 96% with FiO2 of 70%, patient is afebrile. Labs showing WBC of 16.8 K, hemoglobin 15.8. Electrolytes are within normal limits and creatinine 1.0, elevated lactic acid 4.6 and 3.0, elevated troponin 146. Elevated liver enzymes with AST 25 and ALT 271. Serum alcohol level was 211. Chest x-ray: Evidence of interstitial face pulmonary edema Patient currently on aspirin 81 mg, Lipitor 80 mg and Brillinta. As well as normal saline 75 mL/h This morning patient have a low-grade temperature of 99.9, patient has a Lizama catheter were don't repeat urinalysis. Patient has NG tube with a few millimeters of dark-colored aspirated fluid, or going to check occult blood in sample. Patient is currently moderately tachycardic around 120 02/22/2019 Patient remains in the ICU, intubated and sedated. His undergoing weaning trial by critical care team. Hemoglobin remained stable despite being started on aspirin and ramipril intact with positive occult blood in the stomach secretions. She will feeding can be started today. Patient continued having fever today at 100. Chest x-ray showed patchy density in the right upper lobe suspicious for pneumonia versus atelectasis. Sputum culture still pending as well as urine culture. pro-calcitonin is ordered. Patient is slightly tachycardic and tachypneic. He is getting Ativan as needed for agitation as part of his CIWI protocol. He got 3 mg of Ativan yesterday and 2 mg overnight. Patient continue on normal saline at 75 mL/h Left showing improvement leukocytosis down to 13.6, worsening liver enzymes, h owever bilirubin is within normal limits Review of systems: N/a Active Medications Generic Name Dose Route Start Last Admin Trade Name Freq PRN Reason Stop Dose Admin Acetaminophen 650 mg 02/21/19 06:50 Tylenol Tab PO Q4HR PRN Fever and/or Mild Pain Al Hydroxide/Mg Hydroxide 30 ml 02/20/19 22:02 Maalox PO Q4HR PRN Heartburn Albuterol/Ipratropium 3 ml 02/21/19 12:00 02/22/19 11:18 Duoneb 0.5 Mg-3 Mg/3 Ml Soln INHALATION 3 ml RT-Q4H SUKHDEEP Administration Albuterol/Ipratropium 3 ml 02/21/19 10:16 Duoneb 0.5 Mg-3 Mg/3 Ml Soln INHALATION RT-Q2H PRN Shortness Of Breath Or Wheezing Aspirin 81 mg 02/21/19 09:00 02/22/19 08:31 Aspirin PO 81 mg DAILY SUKHDEEP Administration Atorvastatin Calcium 80 mg 02/21/19 21:00 02/21/19 21:07 Lipitor PO 80 mg HS SUKHDEEP Administration Atropine Sulfate 0.5 mg 02/20/19 22:02 Atropine IV ONCE PRN Symptomatic Bradycardia Chlorhexidine Gluconate 15 ml 02/21/19 09:00 02/22/19 08:31 Peridex MUCOUS MEM 15 ml BID SUKHDEEP Administration Furosemide 40 mg 02/22/19 11:30 02/22/19 11:36 Lasix IV 40 mg Q8HR SUKHDEEP Administration Hydromorphone HCl 1 mg 02/22/19 01:11 02/22/19 10:30 Dilaudid IVP 1 mg Q4HR PRN Administration Pain Propofol 1,000 mg/ IV Solution 100 mls @ 0 mls/hr 02/20/19 21:30 02/22/19 11:17 IV 75 mcg/kg/min .Q0M SUKHDEEP 54.81 mls/hr Administration Protocol Titrate Sodium Chloride 1,000 mls @ 75 mls/hr 02/21/19 23:15 02/22/19 11:37 Saline 0.9% IV 75 mls/hr .[id number] SUKHDEEP Administration Lorazepam 1 mg 02/21/19 07:36 02/22/19 10:05 Ativan IV 1 mg Q2HR PRN Administration CIWA 8 or 9 Lorazepam 1 mg 02/21/19 07:36 02/22/19 04:14 Ativan IV 1 mg Q1HR PRN Administration CIWA 10 to 15 Lorazepam 2 mg 02/21/19 07:36 Ativan IV 02/23/19 07:37 Q10M PRN CIWA 16 or higher Metoprolol Tartrate 12.5 mg 02/21/19 16:00 02/22/19 08:31 Lopressor PO 12.5 mg TID SUKHDEEP Administration Miscellaneous Information 1 each 02/20/19 22:02 Rx Info: Iv Contrast Was Given MISCELLANE 02/22/19 22:02 DAILY PRN Per Protocol Naloxone HCl 0.2 mg 02/21/19 06:50 Narcan IV Q2M PRN Opioid Reversal Pantoprazole Sodium 40 mg 02/21/19 21:00 02/22/19 08:31 Protonix IVP 40 mg BID SUKHDEEP Administration Thiamine HCl 100 mg 02/21/19 09:00 02/22/19 09:24 Vitamin B-1 IVP 100 mg DAILY SUKHDEEP Administration Ticagrelor 90 mg 02/21/19 09:00 02/22/19 08:31 Brilinta PO 90 mg BID SUKHDEEP Administration Objective - Vital Signs Vital signs: Vital Signs Temp 99.5 F 02/22/19 08:00 Pulse 105 H 02/22/19 11:35 Resp 24 02/22/19 11:00 BP 98/71 02/22/19 11:00 Pulse Ox 93 L 02/22/19 11:00 Intake & Output 02/21/19 02/22/19 02/22/19 18:59 06:59 18:59 Intake Total 1221.6 1291.409 665.437 Output Total 1190 680 580 Balance 31.6 611.409 85.437 Weight 121.8 kg Intake: IV 825 900 375 Sodium Chloride 0.9% 1, 825 900 375 000 ml @ 75 mls/hr IV . [id number] SUKHDEEP Rx#:[id number] Intake, IV Titration 396.6 391.409 290.437 Amount Propofol 1,000 mg In 300 391.409 290.437 Empty Bag 1 bag @ Titrate IV .Q0M SUKHDEEP Rx#: [id number] Sodium Chloride 0.9% 1, 75 000 ml @ 75 mls/hr IV . [id number] SUKHDEEP Rx#:[id number] Tirofiban 12.5MG-250Ml Ns 21.6 250 ml @ 0.15 MCG/KG/MIN 21.6 mls/hr IV .[id number] SUKHDEEP Rx#:[id number] Output: Gastric Drainage 300 Urine 1190 680 280 Other: Voiding Method Indwelling Catheter Indwelling Catheter Indwelling Catheter - Exam -GENERAL: The patient is intubated and sedated. He is currently on mechanical ventilation HEENT: Pupils are round and equally reacting to light. EOMI. No scleral icterus. No conjunctival pallor. Normocephalic, atraumatic. No pharyngeal erythema. No thyromegaly. CARDIOVASCULAR: S1 and S2 present. No murmurs, rubs, or gallops. PULMONARY: Chest is clear to auscultation, no wheezing or crackles. -ABDOMEN: Soft, nontender, nondistended, normoactive bowel sounds. No palpable organomegaly. NG tube is in place. Lizama catheter is in place MUSCULOSKELETAL: No joint swelling or deformity. EXTREMITIES: No cyanosis, clubbing, or pedal edema. NEUROLOGICAL: Gross neurological examination did not reveal any focal deficits. SKIN: No rashes. No petechiae - Labs CBC & Chem 7: 02/22/19 05:26 02/22/19 05:26 Labs: Abnormal Lab Results - Last 24 Hours (Table) 02/22/19 02/22/19 02/22/19 Range/Units 05:13 05:26 05:26 WBC 13.6 H (3.8-10.6) k/uL RBC 4.29 L (4.30-5.90) m/uL Neutrophils # 10.0 H (1.3-7.7) k/uL ABG HCO3 27 H (21-25) mmol/L ABG Total CO2 28 H (19-24) mmol/L ABG O2 Saturation 97.1 H (94-97) % Chloride 108 H (98-107) mmol/L BUN 25 H (9-20) mg/dL Glucose 119 H (74-99) mg/dL POC Glucose (mg/dL) (75-99) mg/dL Delta Bilirubin 0.3 H (0.0-0.2) mg/dL AST 572 H (17-59) U/L ALT 257 H (21-72) U/L Total Protein 6.2 L (6.3-8.2) g/dL 02/22/19 Range/Units 05:47 WBC (3.8-10.6) k/uL RBC (4.30-5.90) m/uL Neutrophils # (1.3-7.7) k/uL ABG HCO3 (21-25) mmol/L ABG Total CO2 (19-24) mmol/L ABG O2 Saturation (94-97) % Chloride (98-107) mmol/L BUN (9-20) mg/dL Glucose (74-99) mg/dL POC Glucose (mg/dL) 126 H (75-99) mg/dL Delta Bilirubin (0.0-0.2) mg/dL AST (17-59) U/L ALT (21-72) U/L Total Protein (6.3-8.2) g/dL Microbiology - Last 24 Hours (Table) 02/21/19 11:33 Gram Stain - Preliminary Sputum Sputum Culture - Preliminary 02/21/19 04:02 Urine Culture - Preliminary Urine,Voided Assessment and Plan Assessment: -Acute anterior lateral STEMI, status post emergent cardiac cath showing total occlusion of LAD and 90% stenosis of circumflex coronary artery, status post stent placements 3 -Status post cardiac arrest secondary to V. fib, status post successful CPR and electric shock -Acute hypoxic respiratory failure status post intubation and mechanical ventilation -Alcohol abuse and risks of alcohol withdrawal -Nicotine dependence -Leukocytosis, mostly reactive. Improvement -Elevated lactic acid. Improvement -Elevated liver enzymes, mostly secondary to shock liver Plan: This is a 53 years old male who presents with cardiac arrest secondary to acute STEMI, status post cardiac cath showing CAD and stent placement. Follow-up recommendation by warehouse unloader and admission discharge rn. Continue with aspirin, Brillinta and Lipitor. Vent management as per pulmonary team. Start the patient on CIWA protocol, continue with thiamine. Check occult blood and gastric aspirate. Follow-up WBC and temperature. Follow-up urinalysis Labs and medication were reviewed.. Continue same treatment. Continue with symptomatic treatment. Resume home medication. Monitor lytes and vitals. DVT and GI prophylaxis. Further recommendations of the clinical course of the patient DVT prophylaxis: aspirin and Brillinta GI Prophylaxis: Protonix Prognosis is guarded
[2019-02-22] MEDS: PIPERACILLIN-TAZOBACTAM 3.375 GM in SODIUM CHLORIDE 0.9% 100 ML IVPB SCH ×2 (16:11→23:12)
[2019-02-22 19:29] LABS: Hepatitis A Antibody IgM Non-Reactive (Non-Reactive); Hepatitis B Core IgM Non-Reactive (Non-Reactive); Hepatitis B Surface Antigen Non-Reactive (Non-Reactive); Hepatitis C IgG Antibody Non-Reactive (Non-Reactive)
--- NOTE | 2019-02-22 20:16 | P.CONS ---
History of Present Illness - Reason for Consult Consult date: 02/22/19 Gastric aspirate positive for blood Requesting physician: Sergey E Sheet - Chief Complaint Cardiac arrest - History of Present Illness 53-year-old male with medical history significant for tobacco use who presented to the hospital after EMS was called due to dyspnea and the patient subsequently suffered a cardiopulmonary arrest with ventricular fibrillation en route to the hospital. Of note, history is been taken in discussion with the medical team and on review of the electronic medical record as the patient is currently intubated and sedated. The patient received CPR en route to the hospital and after presentation in the emergency department where he was found to have an acute STEMI on EKG and subsequently taken to the cardiac catheterization lab where he underwent cardiac stent placement. Currently the patient is in the ICU where he is receiving supportive care. The gastroenterology service was consulted to evaluate after the patient had approximately 300 mL of dark colored aspirate from his NG tube. This was tested and was found to be positive for blood. Of note the patients hemoglobin has remained stable currently at 13.6. The patient was also found to have elevated blood alcohol level at 211 and elevation in his liver enzymes with a total bilirubin 0.3, alkaline phosphatase 49, AST 572 and ALT 257. Per report the patient drinks liquor and beer regularly. On discussion with the ICU team there is been no further evidence of GI bleeding with no melena or blood per rectum noted. Currently he is receiving NG tube feedings. Review of Systems ROS unobtainable: due to endotracheal tube Past Medical History Past Medical History: Unable to Obtain History of Any Multi-Drug Resistant Organisms: None Reported Past Surgical History: Unable to Obtain Past Anesthesia/Blood Transfusion Reactions: No Reported Reaction Past Psychological History: No Psychological Hx Reported Smoking Status: Unknown if ever smoked Additional History: Family history: Unable to obtain as patient is currently intubated and sedated. Medications and Allergies Home Medications Medication Instructions Recorded Confirmed Type Aspirin EC [Ecotrin] 325 mg PO DAILY PRN 02/20/19 02/20/19 History Ibuprofen [Motrin Ib] 400 mg PO Q6H PRN 02/20/19 02/20/19 History guaiFENesin SYRUP 100MG/5ML 200 mg PO Q6H PRN 02/20/19 02/20/19 History [Robitussin] guaiFENesin [Mucinex] 600 mg PO BID PRN 02/20/19 02/20/19 History Allergies Allergy/AdvReac Type Severity Reaction Status Date / Time No Known Allergies Allergy Verified 02/20/19 21:54 Physical Exam Vitals: Vital Signs Temp Pulse Resp BP Pulse Ox 02/22/19 11:35 105 H 02/22/19 11:23 107 H 02/22/19 11:00 109 H 24 98/71 93 L 02/22/19 10:00 110 H 36 H 114/71 95 02/22/19 09:00 112 H 29 H 102/70 94 L 02/22/19 08:00 99.5 F 112 H 24 107/76 94 L 02/22/19 07:36 112 H 02/22/19 07:24 111 H 02/22/19 07:00 112 H 30 H 106/71 94 L 02/22/19 06:00 112 H 29 H 102/71 93 L 02/22/19 05:00 112 H 25 H 102/74 93 L 02/22/19 04:00 99.9 F H 110 H 28 H 99/77 93 L 02/22/19 03:57 111 H 02/22/19 03:35 108 H 02/22/19 03:00 112 H 21 99/66 93 L 02/22/19 02:00 113 H 24 108/74 94 L 02/22/19 01:00 112 H 30 H 106/81 95 02/22/19 00:20 115 H 34 H 108/81 95 02/22/19 00:04 114 H 02/22/19 00:00 100.0 F H 105 H 32 H 119/84 97 02/21/19 23:52 110 H 02/21/19 23:00 112 H 32 H 107/78 94 L 02/21/19 22:00 117 H 31 H 113/81 94 L 02/21/19 21:00 120 H 28 H 118/90 93 L 02/21/19 20:00 99.6 F 115 H 30 H 121/74 93 L 02/21/19 19:39 114 H 02/21/19 19:15 112 H 02/21/19 19:00 112 H 33 H 112/77 93 L 02/21/19 18:00 117 H 28 H 117/86 94 L 02/21/19 17:00 118 H 29 H 118/87 94 L 02/21/19 16:00 99.9 F H 112 H 32 H 117/83 94 L 02/21/19 15:27 114 H 02/21/19 15:14 112 H 02/21/19 15:00 114 H 29 H 113/83 94 L 02/21/19 14:00 115 H 24 116/88 94 L 02/21/19 13:00 118 H 27 H 118/84 95 Intake and Output 02/21/19 02/22/19 02/22/19 22:59 06:59 14:59 Intake Total 700 991.409 665.437 Output Total 710 395 580 Balance -10 596.409 85.437 Intake: IV 600 600 375 Sodium Chloride 0.9% 1, 600 600 375 000 ml @ 75 mls/hr IV . [id number] SUKHDEEP Rx#:[id number] Intake, IV Titration 100 391.409 290.437 Amount Propofol 1,000 mg In 100 391.409 290.437 Empty Bag 1 bag @ Titrate IV .Q0M SUKHDEEP Rx#: [id number] Output: Gastric Drainage 300 Urine 710 395 280 Other: Voiding Method Indwelling Catheter Indwelling Catheter Indwelling Catheter On physical examination, patient appears comfortable in no apparent distress. HEAD: Normocephalic, atraumatic. EYES: No scleral icterus. No conjunctival injection. MOUTH: No lesions with endotracheal tube in place, tongue midline. NECK: Trachea midline, no gross abnormalities. CHEST: Coarse respiratory illnesses in all lung quiroz secondary to mechanical ventilation. HEART: S1-S2 appreciated. ABDOMEN: Soft. Bowel sounds are positive. No organomegaly. No guarding or rigidity. EXTREMITIES: No pedal edema. SKIN: No rashes, no jaundice. NEUROLOGIC: Intubated and sedated. Results CBC & Chem 7: 02/22/19 05:26 02/22/19 05:26 Labs: Abnormal Lab Results - Last 24 Hours (Table) 02/22/19 02/22/19 02/22/19 Range/Units 05:13 05:26 05:26 WBC 13.6 H (3.8-10.6) k/uL RBC 4.29 L (4.30-5.90) m/uL Neutrophils # 10.0 H (1.3-7.7) k/uL ABG HCO3 27 H (21-25) mmol/L ABG Total CO2 28 H (19-24) mmol/L ABG O2 Saturation 97.1 H (94-97) % Chloride 108 H (98-107) mmol/L BUN 25 H (9-20) mg/dL Glucose 119 H (74-99) mg/dL POC Glucose (mg/dL) (75-99) mg/dL Delta Bilirubin 0.3 H (0.0-0.2) mg/dL AST 572 H (17-59) U/L ALT 257 H (21-72) U/L Total Protein 6.2 L (6.3-8.2) g/dL 02/22/19 Range/Units 05:47 WBC (3.8-10.6) k/uL RBC (4.30-5.90) m/uL Neutrophils # (1.3-7.7) k/uL ABG HCO3 (21-25) mmol/L ABG Total CO2 (19-24) mmol/L ABG O2 Saturation (94-97) % Chloride (98-107) mmol/L BUN (9-20) mg/dL Glucose (74-99) mg/dL POC Glucose (mg/dL) 126 H (75-99) mg/dL Delta Bilirubin (0.0-0.2) mg/dL AST (17-59) U/L ALT (21-72) U/L Total Protein (6.3-8.2) g/dL Microbiology - Last 24 Hours (Table) 02/21/19 11:33 Gram Stain - Preliminary Sputum Sputum Culture - Preliminary 02/21/19 04:02 Urine Culture - Preliminary Urine,Voided Chest x-ray: report reviewed (Subsequent segmental atelectasis versus pneumonia on chest x-ray.) Assessment and Plan (1) GI bleeding Narrative/Plan: 53-year-old male who is status post cardiac arrest found to have a STEMI he is status post cardiac catheterization with stent placement and is seen in the ICU where he is intubated and sedated. The patient had NG tube placed with dark colored aspirate which was positive for blood on testing. No further signs or symptoms of bleeding. Hemoglobin has remained stable at 13.6 currently. Likely multifactorial secondary to NG trauma as well as traumatic CPR, or other etiology. Current Visit: Yes Status: Acute Code(s): K92.2 - GASTROINTESTINAL HEMORRHAGE, UNSPECIFIED SNOMED Code(s): 53451342 (2) Elevated liver enzymes Narrative/Plan: Predominantly hepatocellular elevation in liver enzymes with AST 572 and ALT 257 likely related to alcoholic hepatitis with the patient presenting with a elevated blood alcohol level, there may also be a component of chronic liver disease given his history of alcohol use as well as hypoperfusion during CPR. Viral hepatitis panel testing negative. Current Visit: Yes Status: Acute Code(s): R74.8 - ABNORMAL LEVELS OF OTHER SERUM ENZYMES SNOMED Code(s): 268734532 (3) Cardiac arrest Current Visit: Yes Status: Acute Code(s): I46.9 - CARDIAC ARREST, CAUSE UNSPECIFIED SNOMED Code(s): 668096882 (4) ST elevation (STEMI) myocardial infarction Current Visit: Yes Status: Acute Code(s): I21.3 - ST ELEVATION (STEMI) MYOCARDIAL INFARCTION OF [facility] SITE SNOMED Code(s): 32359667 Plan: Supportive care Okay for tube feeds Continue IV Protonix for GI prophylaxis Continue to monitor hemoglobin and hematocrit introduces needed Continue to monitor stool output No plan for endoscopic evaluation at this time Viral hepatitis panel negative Ultrasound of the abdomen ordered for evaluation of liver If further elevation in liver enzymes can consider full serologic workup, however estimated liver enzymes are likely elevated in the setting of alcoholic hepatitis with possible underlying chronic liver disease in the setting of regular alcohol use as well as possible component of hypoperfusion given CPR Thank you for allowing us to participate in the care of the patient
[2019-02-22] MEDS ORDERED: HYDROCORTISONE 2.5% RECTAL CREAM 30 GM TUBE RECTAL SCH (21:00)
[2019-02-22] MEDS: ATORVASTATIN 80 MG TAB PO SCH (21:23)
--- NOTE | 2019-02-22 21:53 | PCN ---
PROCEDURE NOTE PREOPERATIVE DIAGNOSIS: Acute hypoxic respiratory failure. POSTOPERATIVE DIAGNOSIS: Acute hypoxic respiratory failure. PROCEDURE: Left radial arterial line placement. Indications: Hemodynamic monitoring. A time-out was completed verifying correct patient, procedure, site, positioning, and implant(s) or special equipment if applicable. Dipak's test was performed to ensure adequate perfusion. The patient's left wrist was prepped and draped in sterile fashion. Lidocaine 1% was used to anesthetize the area. An 18G Arrow arterial line was introduced into the radial artery. The catheter was threaded over the guidewire and the needle was removed with appropriate pulsatile blood return. Blood loss was minimal. The catheter was then sutured in place to the skin and a sterile dressing applied. Perfusion to the extremity distal to the point of catheter insertion was checked and found to be adequate. The patient tolerated the procedure very well and there were no immediate complications. The line was flushed, sutured in place. Good waveform was noted. Sterile dressing was applied. MMODL / IJN: [id number] /
[2019-02-23] MEDS: FUROSEMIDE 10 MG/ML 4 ML VIAL IV SCH ×4 (00:04→23:29)
[2019-02-23 00:11] LABS: Glucose,Whole Blood 131 mg/dL (75-99)
[2019-02-23] MEDS: IPRATROPIUM-ALBUTEROL 3 ML NEB INHALATION SCH ×7 (00:41→23:33)
[2019-02-23] MEDS: PROPOFOL 1,000 MG in EMPTY BAG 1 BAG IV SCH ×7 (01:58→22:45)
[2019-02-23 04:27] LABS: ABG Base Excess 6.1 mmol/L; ABG HCO3 30 mmol/L (21-25); ABG Oxygen Saturation 95.2 % (94-97); ABG PCO2 44 mmHg (35-45); ABG PH 7.45 (7.35-7.45); ABG PO2 73 mmHg (83-108); ABG TCO2 32 mmol/L (19-24); Allen Test Performed? Yes
[2019-02-23 04:32] LABS: Basophils % (A) 0 %; Eosinophils # (A) 0.4 k/uL (0-0.7); Eosinophils % (A) 3 %; HCT 39.1 % (39.0-53.0); HGB 13.5 gm/dL (13.0-17.5); Lymphocytes # (A) 1.8 k/uL (1.0-4.8); Lymphocytes % (A) 13 %; MCH 31.3 pg (25.0-35.0); MCHC 34.5 g/dL (31.0-37.0); MCV 90.6 fL (80.0-100.0); Mean Platelet Volume 8.2; Monocytes # (A) 0.8 k/uL (0-1.0); Monocytes % (A) 5 %; Neutrophils # (A) 10.9 k/uL (1.3-7.7); Neutrophils % (A) 78 %; Platelet Count 165 k/uL (150-450); RBC 4.32 m/uL (4.30-5.90); RDW 12.5 % (11.5-15.5); WBC 14.1 k/uL (3.8-10.6)
[2019-02-23 04:44] LABS: ALT 191 U/L (4-49); AST 298 U/L (17-59); African American GFR (CKD) >90 (>60 ml/min/1.73 sqM); Albumin 3.8 g/dL (3.5-5.0); Alkaline Phosphatase 51 U/L (38-126); Anion Gap 3 mmol/L; Bilirubin, Delta 0.4 mg/dL (0.0-0.2); Bilirubin,Unconjugated 0.4 mg/dL (0.0-1.1); Blood Urea Nitrogen 24 mg/dL (9-20); Calcium 8.6 mg/dL (8.4-10.2); Carbon Dioxide 31 mmol/L (22-30); Chloride 104 mmol/L (98-107); Glucose 126 mg/dL (74-99); Non-African American GFR(CKD) >90 (>60 ml/min/1.73 sqM); Potassium 3.5 mmol/L (3.5-5.1); Sodium 138 mmol/L (137-145); Total Bilirubin 0.8 mg/dL (0.2-1.3); Total Protein 6.8 g/dL (6.3-8.2)
[2019-02-23] MEDS ORDERED: Potassium Replacement Protocol 1 EACH MISC MISCELLANE PRN (04:45)
[2019-02-23] MEDS: POTASSIUM CHLORIDE 10 MEQ in WATER FOR INJECTION 1 100ML.BAG IVPB SCH ×4 (05:23→09:09)
[2019-02-23] MEDS: HYDROmorphone 1 MG/ML 1 ML SYRINGE IVP PRN (06:04)
[2019-02-23 06:12] LABS: Glucose,Whole Blood 122 mg/dL (75-99)
[2019-02-23] MEDS: TICAGRELOR 90 MG TAB PO SCH ×2 (08:18→20:05)
[2019-02-23] MEDS: PANTOPRAZOLE 40 MG/10 ML VIAL IVP SCH ×2 (08:18→20:05)
[2019-02-23] MEDS: CHLORHEXIDINE GLUCONATE 15 ML CUP MUCOUS MEM SCH ×2 (08:18→20:05)
[2019-02-23] MEDS: METOPROLOL TARTRATE 12.5 MG TAB PO SCH ×3 (08:18→22:41)
[2019-02-23] MEDS: ASPIRIN 81 MG PO SCH (08:18)
[2019-02-23] MEDS: PIPERACILLIN-TAZOBACTAM 3.375 GM in SODIUM CHLORIDE 0.9% 100 ML IVPB SCH ×3 (08:19→23:29)
--- NOTE | 2019-02-23 08:24 | XR ---
EXAMINATION TYPE: XR chest 1V portable DATE OF EXAM: 02/23/2019 COMPARISON: 02/22/2019 INDICATION: Tube placement TECHNIQUE: Single frontal view of the chest is obtained. FINDINGS: The heart size is normal. The pulmonary vasculature is normal. Mild right infrahilar infiltrate may be present. Some minimal retrocardiac infiltrate is present. Thi s may be improving on the left. A small left pleural effusion with blunting left costophrenic angle s hould be considered. There is an endotracheal tube tip above the josefina. Nasogastric tube transverses the thorax. IMPRESSION: 1. Small infiltrate right infrahilar region. 2. Small retrocardiac infiltrate with small left pleural effusion. 3. Lines and catheters discussed above.
--- NOTE | 2019-02-23 08:27 | US ---
EXAMINATION TYPE: US abdomen complete DATE OF EXAM: 02/23/2019 COMPARISON: NONE CLINICAL HISTORY: elevated LFTS. Elevated LFT's, patient on a vent, exam done portable in ICU. EXAM MEASUREMENTS: Liver Length: 19.8 cm Gallbladder Wall: 0.2 cm CBD: 0.5 cm Spleen: 14.6 cm Right Kidney: 12.5 x 6.0 x 6.1 cm Left Kidney: 12.4 x 5.9 x 5.1 cm Difficult and limited study due to patient body habitus Pancreas: visualized portions wnl, limited by overlying midline bowel gas Liver: enlarged, attenuating, heterogeneous, decreased visualization of vessels suggestive of fatty infiltrate Gallbladder: measuring borderline hydropic, low level echoes seen within dependant portion Evidence for sonographic Hernandez's sign: n/a CBD: visualized portions wnl, limited by overlying bowel gas Spleen: enlarged Right Kidney: wnl Left Kidney: wnl Upper IVC: wnl Abd Aorta: visualized portions wnl, distal portion obscured by overlying midline bowel gas IMPRESSION: 1. Hepatomegaly. Some mild fatty infiltration is present.
--- NOTE | 2019-02-23 08:33 | PN ---
PROGRESS NOTE PULMONARY/CRITICAL CARE PROGRESS NOTE: DATE OF SERVICE: 02/23/2019 This is a 53-year-old gentleman who had an [id number] cardiopulmonary arrest. He had a ventricular fibrillation arrest and he was defibrillated twice. He had a period of prolonged resuscitation with eventual return of spontaneous circulation. The patient suffers from hypoxemic respiratory failure requiring intubation and mechanical ventilation, possible anoxic brain injury and also status post cardiac catheterization with 2 stents in the LAD and 1 stent to the circumflex coronary artery. He does have a history of chronic alcohol and tobacco abuse and likely has some underlying COPD. Currently, Mr. Garza remains on the ventilator. He is on the volume assist-control mode rate of 24, tidal volume of 450, FiO2 of 50%, PEEP of 5. His gases show pO2 of 73, pCO2 of 44, and pH of 7.46. His he got a saline IV at 50 mL an hour, propofol at 70 mcg/kg per minute and Vital high-protein at a rate of 20 with a goal of 20 mL/hour. It is currently on hold pending an abdominal ultrasound. We have tried daily interruptions of sedation with spontaneous breathing trials for the last couple days, but he becomes very agitated. Yesterday, I asked the nurse to send him for a head CT. I do not know that it was done. Will check and see. Other than that, there has been no major changes. Current vital signs are reviewed. His temperature is 99.8, heart rate 107, respiratory rate 26, blood pressure 132/77, saturations are 94% on 50% FiO2. Appears in no acute distress. HEENT: Examination is grossly unremarkable. Mucous membranes are dry. Endotracheal tube and NG tube are noted. NECK: Supple. Full range of motion. No adenopathy. Neck veins are flat. CARDIOVASCULAR: Examination reveals regular rhythm and rate. Heart rate 100. S1, S2 normal. He is in sinus rhythm. Heart sounds are distant. LUNGS: Reveal diffuse rhonchi. Breath sounds equal. No wheezes or crackles. ABDOMEN: Soft. Bowel sounds are noted. EXTREMITIES: Intact. No edema. No cyanosis or clubbing. SKIN: Without rash. NEUROLOGIC: Examination is difficult to assess given his current level of sedation. Microbiologic studies including blood urine and sputum sampling is all negative thus far. LABS: Reviewed. White count 14.1, hemoglobin 13.5, hematocrit 39.1, platelet count 165,000. Blood gases show a pO2 of 73, a pCO2 of 44, and a pH of 7.46. These blood gases consistent with normal oxy [place] and mild metabolic alkalosis. Sodium 138, potassium 3.5, chloride is 104, CO2 is 31, anion gap is 3. BUN and creatinine were 24 and 0.95. AST has come down from 572 to 298, and ALT has come down from 257 to 191. Procalcitonin level is 0.22. Chest x-ray today shows mild diffuse bilateral infiltrates with small bilateral pleural effusions. CURRENT MEDICATIONS: Reviewed. He is currently on Tylenol, aspirin, Lipitor, atropine p.r.n., chlorhexidine, Lasix, Dilaudid p.r.n., updrafts with albuterol and Atrovent, Ativan p.r.n., Maalox, Lopressor, Narcan, Protonix, Zosyn, Thiamin, Brilinta, propofol and potassium replacement. ASSESSMENT: 1. Hoq-ol-cehvwwkr cardiopulmonary arrest, secondary to ventricular fibrillation, status post defibrillation x2 with a relatively prolonged resuscitation phase and eventual return of spontaneous circulation. 2. Hypoxemic respiratory failure, requiring intubation and mechanical ventilation for respiratory failure, with a component of fluid overload. 3. Rule out anoxic brain injury. 4. Status post cardiac catheterization with stenting of the left anterior descending artery x2 and circumflex coronary artery x1. 5. History of chronic tobacco and alcohol abuse. 6. Probable chronic obstructive pulmonary disease. 7. Mild metabolic alkalosis. 8. Hypokalemia. 9. Possible aspiration pneumonia. PLAN: Currently, the patient remains on Zosyn. Will attempt another daily interruption of sedation and spontaneous breathing trial today. We will get the potassium up to greater than 4.5. This will help the metabolic alkalosis. His gas exchange is reasonable. He is on 50% and 5 of PEEP and his PO2 of 73. He remains on Diprivan and tube feeds. An abdominal ultrasound was done today. Additional recommendations and suggestions are forthcoming. So far, cultures including blood, urine, and sputum are negative. Will continue to follow. If the CT scan was not done yesterday, it will be done. We may need a Neurology consultation as well and/or an EEG. CRITICAL CARE TIME: 36 minutes. MMODL / IJN: [id number] /
[2019-02-23] MEDS ORDERED: CISATRACURIUM 2 MG/ML 5 ML VIAL IV ONE (08:40)
--- NOTE | 2019-02-23 09:59 | CT ---
EXAMINATION TYPE: CT brain wo con DATE OF EXAM: 02/23/2019 COMPARISON: None HISTORY: Acute cardiac arrest, STEMI CT DLP: 996 mGycm Automated exposure control for dose reduction was used. Brain CT performed utilizing departmental pro tocol FINDINGS: Some inflammatory change present in the sphenoid sinus, ethmoid air cells, left maxillary sinus and f rontal sinus. Mastoid air cells are well aerated. Calvarium is intact. Convexity not entirely include d on the exam. No evident hydrocephalus or hemorrhage. Brain density is remarkable for some questiona ble subtle hypoattenuation in the subcortical white matter of the left insular cortex on the right. D ense appearance of the internal carotid artery on the right may appears somewhat asymmetrically incre ased due to abnormal positioning within the gantry. IMPRESSION: SINUS DISEASE. DENSE MCA SIGN IS THOUGHT TO BE CLINICAL DUE TO POSITIONING HOWEVER ADDITIONAL CONTRAS T-ENHANCED EXAM COULD BE PERFORMED FOR BETTER EVALUATION INDICATED TO EXCLUDE THROMBOSIS, EMBOLUS. Subtle white matter changes as described, findings are nonspecific, early ischemic changes within th e differential.
[2019-02-23] MEDS: LORazepam 2 MG/ML INJ IV PRN (12:07)
[2019-02-23] MEDS: THIAMINE 100 MG/ML 2 ML VIAL IVP SCH (12:08)
[2019-02-23 12:12] LABS: Glucose,Whole Blood 140 mg/dL (75-99)
--- NOTE | 2019-02-23 12:23 | PN ---
PROGRESS NOTE This patient is status post anterior wall myocardial infarction and a cardiac arrest. Patient's EMR reviewed. The patient underwent a CT scan of the brain today, it did not show any significant abnormality. The patient still is being sedated and is not responsive. Patient remains hemodynamically stable. Blood pressure is 110/67 mmHg. First and second heart sounds are normal. Lungs are clear to auscultation and percussion. Patient's procalcitonin level was 0.2. The patient is now getting Zosyn. MMODL / IJN: [id number] /
[2019-02-23] MEDS: SODIUM CHLORIDE 0.9% 1,000 ML IV SCH (16:08)
--- NOTE | 2019-02-23 17:44 | PN ---
PROGRESS NOTE DATE OF DICTATION: 02/23/2019 This patient is a 53-year-old pleasant white male admitted to the hospital with acute AL/cardiac arrest, status post cardiac cath with stent placement. He is presently intubated, on the vent. He was noted to have some coffee-ground emesis through the NG tube and hence we are consulted. He continues to remain stable. Tube feeds were started yesterday, tolerating well. No acute events noted through the night. PHYSICAL EXAMINATION: He remains on the vent, sedated. VITAL SIGNS: Stable. Blood pressure is 126/66, pulse rate 111, afebrile. HEENT examination unremarkable. Conjunctivae pink. Sclerae anicteric. Oral cavity no lesions. NECK: No JVD or lymph node enlargement. CHEST: Clear to auscultation. HEART: Regular rate and rhythm. ABDOMEN: Soft. Bowel sounds are positive. No organomegaly. EXTREMITIES: No pedal edema. NEUROLOGIC: On the vent. Sedated. LABS: WBC is 14.1, hemoglobin 13.5. AST and ALT are improving at 298 and 191, respectively. T-bilirubin and alkaline phosphatase are normal. IMPRESSION: 1. Cardiac arrest, status post acute myocardial infarction, presently remains on the vent, sedated and intubated. 2. Coffee-ground material in the nasogastric tube with stable hemoglobin. No active bleeding clinically. 3. Elevated liver function tests secondary to ischemic hepatitis from low perfusion state. LFTs are gradually improving. RECOMMENDATIONS: 1. Continue with symptomatic and supportive care. 2. Continue Protonix daily. 3. No plans for any endoscopic intervention. 4. Will follow with you closely. 5. MMODL / IJN: [id number] /
[2019-02-23] MEDS: POTASSIUM BICARBONATE/CIT AC 20 MEQ TABLET.EFF NG-TUBE SCH ×2 (18:59→20:04)
[2019-02-23] MEDS: ATORVASTATIN 80 MG TAB PO SCH (20:05)
[2019-02-23] MEDS: ACETAMINOPHEN TAB 325 MG TAB PO PRN (20:05)
--- NOTE | 2019-02-23 21:52 | P.PN ---
Subjective This is a pleasant 53 years old male with no significant past medical history. Patient could not provide information which were obtained from the medical records and his staff. Documents patient has been diagnosed with pneumonia for about a week, also patient is a cigarette smoker about 2 packs per day and alcohol drinker with both liquor and beer. Patient was getting more dyspneic last night however he was drinking alcohol. Family called 911 . In route patient suffered cardiopulmonary arrest with a showing V. fib, patient underwent resuscitation with CPR and cardiac electric shock as he has been having unresponsive and pulseless. Aspirin 324 mg was provided for the patient. I'll refer to the emergency room patient was still pending. And pulseless, he received more electric shock and CPR, eventually patient and his pills. EKG s howed acute STEMI and STEMI alert was called. Patient admitted intubation and mechanical ventilation. He underwent emergent cardiac cath showing total occlusion of the left anterior descending artery and 90% stenosis of the circumflex coronary artery with large dominant right coronary artery Currently patient remains in the ICU, his moderately tachycardic with heart rate 115-120, blood pressure 121/79, breathing rate 18, saturating 96% with FiO2 of 70%, patient is afebrile. Labs showing WBC of 16.8 K, hemoglobin 15.8. Electrolytes are within normal limits and creatinine 1.0, elevated lactic acid 4.6 and 3.0, elevated troponin 146. Elevated liver enzymes with AST 25 and ALT 271. Serum alcohol level was 211. Chest x-ray: Evidence of interstitial face pulmonary edema Patient currently on aspirin 81 mg, Lipitor 80 mg and Brillinta. As well as normal saline 75 mL/h This morning patient have a low-grade temperature of 99.9, patient has a Lizama catheter were don't repeat urinalysis. Patient has NG tube with a few millimeters of dark-colored aspirated fluid, or going to check occult blood in sample. Patient is currently moderately tachycardic around 120 02/22/2019 Patient remains in the ICU, intubated and sedated. His undergoing weaning trial by critical care team. Hemoglobin remained stable despite being started on aspirin and ramipril intact with positive occult blood in the stomach secretions. She will feeding can be started today. Patient continued having fever today at 100. Chest x-ray showed patchy density in the right upper lobe suspicious for pneumonia versus atelectasis. Sputum culture still pending as well as urine culture. pro-calcitonin is ordered. Patient is slightly tachycardic and tachypneic. He is getting Ativan as needed for agitation as part of his CIWA protocol. He got 3 mg of Ativan yesterday and 2 mg overnight. Patient continue on normal saline at 75 mL/h Left showing improvement leukocytosis down to 13.6, worsening liver enzymes, h owever bilirubin is within normal limits 02/23/19 Patient remains in the ICU, intubated and sedated. His undergoing weaning trial by critical care team for the second day.Hb stable , has leukocytosis of 14.1K compared to 13.6 yesterday , and pt was started on zosyn for possible pna, as chest xray : small right and retrocardiac infilterate. K 3.4 and creatinine 0.9, liver enz improved from 500+ to around 200. pt remains sedated and unresponsive and he might need further neurological evaluation if no awaking, CT brain: no acute event but dense MCA and radiologist recommended to consider contrast study. Review of systems: N/a Active Medications Generic Name Dose Route Start Last Admin Trade Name Freq PRN Reason Stop Dose Admin Acetaminophen 650 mg 02/21/19 06:50 02/23/19 20:05 Tylenol Tab PO 650 mg Q4HR PRN Administration Fever and/or Mild Pain Al Hydroxide/Mg Hydroxide 30 ml 02/20/19 22:02 Maalox PO Q4HR PRN Heartburn Albuterol/Ipratropium 3 ml 02/21/19 12:00 02/23/19 19:30 Duoneb 0.5 Mg-3 Mg/3 Ml Soln INHALATION 3 ml RT-Q4H SUKHDEEP Administration Albuterol/Ipratropium 3 ml 02/21/19 10:16 Duoneb 0.5 Mg-3 Mg/3 Ml Soln INHALATION RT-Q2H PRN Shortness Of Breath Or Wheezing Aspirin 81 mg 02/21/19 09:00 02/23/19 08:18 Aspirin PO 81 mg DAILY SUKHDEEP Administration Atorvastatin Calcium 80 mg 02/21/19 21:00 02/23/19 20:05 Lipitor PO 80 mg HS SUKHDEEP Administration Chlorhexidine Gluconate 15 ml 02/21/19 09:00 02/23/19 20:05 Peridex MUCOUS MEM 15 ml BID SUKHDEEP Administration Furosemide 40 mg 02/22/19 11:30 02/23/19 17:08 Lasix IV 40 mg Q8HR SUKHDEEP Administration Hydromorphone HCl 1 mg 02/22/19 01:11 02/23/19 06:04 Dilaudid IVP 1 mg Q4HR PRN Administration Pain Propofol 1,000 mg/ IV Solution 100 mls @ 0 mls/hr 02/20/19 21:30 02/23/19 20:53 IV 60 mcg/kg/min .Q0M SUKHDEEP 43.848 mls/hr Titration Protocol Titrate Sodium Chloride 1,000 mls @ 40 mls/hr 02/21/19 23:15 02/23/19 16:08 Saline 0.9% IV 40 mls/hr .Q24H SUKHDEEP Administration Piperacillin Sod/Tazobactam 100 mls @ 25 mls/hr 02/22/19 16:00 02/23/19 17:08 Sod 3.375 gm/ Sodium Chloride IVPB 25 mls/hr Q8HR SUKHDEEP Administration Lorazepam 1 mg 02/21/19 07:36 02/22/19 21:27 Ativan IV 1 mg Q2HR PRN Administration CIWA 8 or 9 Lorazepam 1 mg 02/21/19 07:36 02/23/19 12:07 Ativan IV 1 mg Q1HR PRN Administration CIWA 10 to 15 Metoprolol Tartrate 12.5 mg 02/21/19 16:00 02/23/19 17:08 Lopressor PO 12.5 mg TID SUKHDEEP Administration Miscellaneous Information 1 each 02/23/19 04:45 Potassium Per Protocol MISCELLANE DAILY PRN Per Protocol Protocol Naloxone HCl 0.2 mg 02/21/19 06:50 Narcan IV Q2M PRN Opioid Reversal Pantoprazole Sodium 40 mg 02/21/19 21:00 02/23/19 20:05 Protonix IVP 40 mg BID SUKHDEEP Administration Thiamine HCl 100 mg 02/21/19 09:00 02/23/19 12:08 Vitamin B-1 IVP 100 mg DAILY SUKHDEEP Administration Ticagrelor 90 mg 02/21/19 09:00 02/23/19 20:05 Brilinta PO 90 mg BID SUKHDEEP Administration Objective - Vital Signs Vital signs: Vital Signs Temp 101.8 F H 02/23/19 20:00 Pulse 110 H 12/13/19 21:00 Resp 29 H 02/23/19 21:00 BP 121/69 02/23/19 20:00 Pulse Ox 95 02/23/19 21:00 Intake & Output 02/23/19 02/23/19 02/24/19 06:59 18:59 06:59 Intake Total 2872.117 6140.000 300.853 Output Total 1670 2600 325 Balance -261.572 -1150.000 -24.147 Weight 121.8 kg Intake: IV 815 880 120 Piperacillin-Tazobactam 3 100 100 .375 gm In Sodium Chloride 0.9% 100 ml @ 25 mls/hr IVPB Q8HR SUKHDEEP Rx# :[id number] Potassium Chloride 10 meq 100 200 In Water For Injection 1 100ml.bag @ 100 mls/hr IVPB Q1HR SUKHDEEP Rx#: [id number] Sodium Chloride 0.9% 1, 490 580 120 000 ml @ 40 mls/hr IV . Q24H SUKHDEEP Rx#:[id number] Sodium Chloride 0.9% 1, 125 000 ml @ 75 mls/hr IV . [id number] SUKHDEEP Rx#:[id number] Intake, IV Titration 483.428 300.000 0.853 Amount Propofol 1,000 mg In 483.428 300.000 0.853 Empty Bag 1 bag @ Titrate IV .Q0M SUKHDEEP Rx#: [id number] Tube Feeding 80 180 60 Other 30 90 120 Output: Urine 1670 2600 325 Other: Voiding Method Indwelling Catheter Indwelling Catheter ABP, PAP, CO, CI - Last Documented Arterial Blood Pressure 95/56 - Exam -GENERAL: The patient is intubated and sedated. He is currently on mechanical ventilation HEENT: Pupils are round and equally reacting to light. EOMI. No scleral icterus. No conjunctival pallor. Normocephalic, atraumatic. No pharyngeal erythema. No thyromegaly. CARDIOVASCULAR: S1 and S2 present. No murmurs, rubs, or gallops. PULMONARY: Chest is clear to auscultation, no wheezing or crackles. -ABDOMEN: Soft, nontender, nondistended, normoactive bowel sounds. No palpable organomegaly. NG tube is in place. Lizama catheter is in place MUSCULOSKELETAL: No joint swelling or deformity. EXTREMITIES: No cyanosis, clubbing, or pedal edema. NEUROLOGICAL: Gross neurological examination did not reveal any focal deficits. SKIN: No rashes. No petechiae - Labs CBC & Chem 7: 02/23/19 04:20 02/23/19 16:55 Labs: Abnormal Lab Results - Last 24 Hours (Table) 02/22/19 02/23/19 02/23/19 Range/Units 23:59 04:20 04:20 WBC 14.1 H (3.8-10.6) k/uL Neutrophils # 10.9 H (1.3-7.7) k/uL ABG pO2 (83-108) mmHg ABG HCO3 (21-25) mmol/L ABG Total CO2 (19-24) mmol/L Potassium (3.5-5.1) mmol/L Carbon Dioxide 31 H (22-30) mmol/L BUN 24 H (9-20) mg/dL Glucose 126 H (74-99) mg/dL POC Glucose (mg/dL) 131 H (75-99) mg/dL Delta Bilirubin 0.4 H (0.0-0.2) mg/dL AST 298 H (17-59) U/L ALT 191 H (4-49) U/L 02/23/19 02/23/19 02/23/19 Range/Units 04:23 06:01 12:01 WBC (3.8-10.6) k/uL Neutrophils # (1.3-7.7) k/uL ABG pO2 73 L (83-108) mmHg ABG HCO3 30 H (21-25) mmol/L ABG Total CO2 32 H (19-24) mmol/L Potassium (3.5-5.1) mmol/L Carbon Dioxide (22-30) mmol/L BUN (9-20) mg/dL Glucose (74-99) mg/dL POC Glucose (mg/dL) 122 H 140 H (75-99) mg/dL Delta Bilirubin (0.0-0.2) mg/dL AST (17-59) U/L ALT (4-49) U/L 02/23/19 Range/Units 16:55 WBC (3.8-10.6) k/uL Neutrophils # (1.3-7.7) k/uL ABG pO2 (83-108) mmHg ABG HCO3 (21-25) mmol/L ABG Total CO2 (19-24) mmol/L Potassium 3.4 L (3.5-5.1) mmol/L Carbon Dioxide (22-30) mmol/L BUN (9-20) mg/dL Glucose (74-99) mg/dL POC Glucose (mg/dL) (75-99) mg/dL Delta Bilirubin (0.0-0.2) mg/dL AST (17-59) U/L ALT (4-49) U/L Microbiology - Last 24 Hours (Table) 02/21/19 11:09 Blood Culture - Preliminary Blood No Growth after 48 hours 02/21/19 11:33 Gram Stain - Final Sputum Sputum Culture - Final Assessment and Plan Assessment: -Acute anterior lateral STEMI, status post emergent cardiac cath showing total occlusion of LAD and 90% stenosis of circumflex coronary artery, status post stent placements 3 -Status post cardiac arrest secondary to V. fib, status post successful CPR and electric shock -Acute hypoxic respiratory failure status post intubation and mechanical ventilation -Alcohol abuse and risks of alcohol withdrawal -Right side and retrocardiac pneumonia -Nicotine dependence -Elevated lactic acid. Improvement -Elevated liver enzymes, mostly secondary to shock liver Plan: This is a 53 years old male who presents with cardiac arrest secondary to acute STEMI, status post cardiac cath showing CAD and stent placement. Follow-up recommendation by automotive glass mechanic and ride operator. Continue with aspirin, Neida llinta and Lipitor. Vent management as per pulmonary team. Start the patient on CIWA protocol, continue with thiamine. continue with zosyn and f/u culture results. follow up the pt neurologically Labs and medication were reviewed.. Continue same treatment. Continue with symptomatic treatment. Resume home medication. Monitor lytes and vitals. DVT and GI prophylaxis. Further recommendations of the clinical course of the patient DVT prophylaxis: aspirin and Brillinta GI Prophylaxis: Protonix Prognosis is guarded
[2019-02-23 22:54] LABS: Magnesium 2.3 mg/dL (1.6-2.3); Potassium 3.6 mmol/L (3.5-5.1)
[2019-02-24 00:24] LABS: Glucose,Whole Blood 134 mg/dL (75-99)
[2019-02-24] MEDS: PROPOFOL 1,000 MG in EMPTY BAG 1 BAG IV SCH ×7 (01:09→23:37)
[2019-02-24] MEDS: POTASSIUM BICARBONATE/CIT AC 20 MEQ TABLET.EFF NG-TUBE SCH ×4 (03:12→22:33)
[2019-02-24] MEDS: IPRATROPIUM-ALBUTEROL 3 ML NEB INHALATION SCH ×6 (03:15→23:54)
[2019-02-24 04:17] LABS: ABG Base Excess 9.3 mmol/L; ABG HCO3 33 mmol/L (21-25); ABG Oxygen Saturation 93.4 % (94-97); ABG PCO2 42 mmHg (35-45); ABG PO2 63 mmHg (83-108); ABG TCO2 34 mmol/L (19-24); Allen Test Performed? Yes
[2019-02-24 05:34] LABS: Basophils % (A) 0 %; Eosinophils # (A) 0.4 k/uL (0-0.7); Eosinophils % (A) 4 %; HCT 38.5 % (39.0-53.0); HGB 13.2 gm/dL (13.0-17.5); Lymphocytes # (A) 1.4 k/uL (1.0-4.8); Lymphocytes % (A) 11 %; MCHC 34.4 g/dL (31.0-37.0); MCV 90.1 fL (80.0-100.0); Mean Platelet Volume 8.5; Monocytes # (A) 0.7 k/uL (0-1.0); Monocytes % (A) 5 %; Neutrophils # (A) 9.5 k/uL (1.3-7.7); Neutrophils % (A) 78 %; Platelet Count 176 k/uL (150-450); RBC 4.27 m/uL (4.30-5.90); RDW 12.5 % (11.5-15.5); WBC 12.1 k/uL (3.8-10.6)
[2019-02-24 05:53] LABS: ALT 132 U/L (4-49); AST 174 U/L (17-59); African American GFR (CKD) >90 (>60 ml/min/1.73 sqM); Albumin 3.7 g/dL (3.5-5.0); Alkaline Phosphatase 53 U/L (38-126); Anion Gap 3 mmol/L; Bilirubin, Delta 0.5 mg/dL (0.0-0.2); Bilirubin,Unconjugated 0.4 mg/dL (0.0-1.1); Blood Urea Nitrogen 26 mg/dL (9-20); Calcium 8.9 mg/dL (8.4-10.2); Carbon Dioxide 34 mmol/L (22-30); Chloride 102 mmol/L (98-107); Glucose 133 mg/dL (74-99); Non-African American GFR(CKD) >90 (>60 ml/min/1.73 sqM); Potassium 3.7 mmol/L (3.5-5.1); Sodium 139 mmol/L (137-145); Total Bilirubin 0.9 mg/dL (0.2-1.3); Total Protein 6.7 g/dL (6.3-8.2)
[2019-02-24 05:54] LABS: Glucose,Whole Blood 139 mg/dL (75-99)
--- NOTE | 2019-02-24 06:33 | XR ---
EXAMINATION TYPE: XR chest 1V portable DATE OF EXAM: 02/24/2019 HISTORY: Tube placement. REFERENCE: Previous study dated 02/23/2019. FINDINGS: The patient is ET tube and NG tube remain in place, unchanged in appearance. A right equine intern al jugular sheath is in place. No pneumothorax is identified. There is right basilar airspace disease. There are bilateral effusions. Heart size upper limits of no rmal. IMPRESSION: 1. RIGHT BASILAR AIRSPACE DISEASE. 2. SMALL, BILATERAL EFFUSIONS.
[2019-02-24] MEDS: ACETAMINOPHEN TAB 325 MG TAB PO PRN (06:34)
[2019-02-24] MEDS ORDERED: POTASSIUM BICARBONATE/CIT AC 20 MEQ TABLET.EFF NG-TUBE SCH ×2 (07:00)
[2019-02-24] MEDS: PIPERACILLIN-TAZOBACTAM 3.375 GM in SODIUM CHLORIDE 0.9% 100 ML IVPB SCH ×3 (08:42→23:36)
[2019-02-24] MEDS: FUROSEMIDE 10 MG/ML 4 ML VIAL IV SCH ×3 (08:43→23:36)
[2019-02-24] MEDS: CHLORHEXIDINE GLUCONATE 15 ML CUP MUCOUS MEM SCH ×2 (08:44→20:57)
[2019-02-24] MEDS: METOPROLOL TARTRATE 12.5 MG TAB PO SCH ×3 (08:44→21:00)
[2019-02-24] MEDS: THIAMINE 100 MG/ML 2 ML VIAL IVP SCH (08:44)
[2019-02-24] MEDS: TICAGRELOR 90 MG TAB PO SCH ×2 (08:44→20:57)
[2019-02-24] MEDS: ASPIRIN 81 MG PO SCH (08:44)
[2019-02-24] MEDS: PANTOPRAZOLE 40 MG/10 ML VIAL IVP SCH ×2 (08:44→20:58)
[2019-02-24 09:37] LABS: Appearance,Urine Clear (Clear); Bilirubin,Urine Negative (Negative); Blood,Urine Negative (Negative); Color,Urine Light Yellow; Glucose,Urine (UA) Negative (Negative); Ketones,Urine Negative (Negative); Leukocyte Esterase,Urine Negative (Negative); Nitrite,Urine Negative (Negative); Protein,Urine Negative (Negative); Specific Gravity,Urine 1.006 (1.001-1.035); Urobilinogen,Urine <2.0 mg/dL (<2.0)
[2019-02-24] MEDS ORDERED: CISATRACURIUM 2 MG/ML 5 ML VIAL IV ONE ×2 (09:40→10:20)
--- NOTE | 2019-02-24 10:30 | PN ---
PROGRESS NOTE PULMONARY/CRITICAL CARE PROGRESS NOTE: DATE OF SERVICE: February 24, 2019 This is a 53-year-old gentleman who had an [id number] cardiac cardiopulmonary arrest. He had a ventricular fibrillation arrest and he was defibrillated x2. He had significant prolonged resuscitation phase with eventual return of spontaneous circulation. The patient has been on mechanical ventilator since February 20. He went to the slabbing machine operator and was found to have significant disease in his LAD and his circumflex coronary artery. He received 2 stents in his LAD and 1 stent in his circumflex coronary artery. Since that time, he has been on life support. We have attempted daily interruptions of sedation with spontaneous breathing trials. Unfortunately, the patient becomes very agitated. He becomes very tachypneic and dyspneic. He becomes hypertensive and tachycardic. We have to resedate him. In the end, he may end up with a tracheostomy and PEG tube sometime next week if he does not show improvement. Currently, he is on the volume assist-control mode, rate of 24, tidal volume 450, FiO2 of 50%, PEEP of 5. Blood gases show pO2 of 63, pCO2 42, and a pH 7.5. These blood gases are consistent with relative hypoxemia and metabolic alkalosis. Metabolic alkalosis is secondary to volume contraction and hypokalemia. He is getting saline at 40 mL an hour, Diprivan at 70 mcg/kg per minute and Vital high- protein at 20 with a goal of 20. We did do a daily interruption of sedation today. He became very agitated again. He had to be resedated. We are going to attempt a spontaneous breathing trial with PSV 8, CPAP of 5, but we never got to that. The patient does have copious secretions. I likely will end up putting a scope down him today to clean out his lungs. We will do that at the bedside here in the ICU. PHYSICAL EXAMINATION: VITAL SIGNS: Vital signs are reviewed. Temperature is 100.9, heart rate 106, respiratory rate 26, blood pressure 131/60, and saturations 95%. GENERAL: Appears in no acute distress. Currently sedated. HEENT examination is grossly unremarkable. Oral endotracheal tube and NG tube noted. NECK: Supple. Full range of motion. No adenopathy. Neck veins are flat. CARDIOVASCULAR examination reveals regular rhythm rate. Heart rate about 106 beats per minute. S1, S2 normal. He is in sinus tachycardia. LUNGS: Reveal coarse bilateral rhonchi. No wheezes. No crackles. Breath sounds equal. ABDOMEN: Soft. Bowel sounds are heard. EXTREMITIES are intact. Mild edema. SKIN: Without rash. NEUROLOGIC: Examination is difficult to assess. When he we have him off sedation, he does open his eyes and seems to be able to respond somewhat appropriately. Still very lethargic though when he is off his propofol. CURRENT LABS: Reviewed. White count 12.1, hemoglobin 13.2, hematocrit 38.5, platelet count 176,000. Blood gases have been noted. Sodium 139, potassium 3.7, chloride 102, CO2 34, anion gap is 3. BUN and creatinine were 26 and 0.91. AST 174, ALT 132. Urine is negative. Microbiology is all negative including blood, urine and sputum. Chest x-ray is reviewed. It shows some fluid overload and/or infiltrates at the bases. Medications are reviewed. They are all appropriate. The patient is on updrafts q.4h. The patient is also on Zosyn. ASSESSMENT: 1. Bqz-mf-hxphjzem cardiopulmonary arrest, with prolonged down time and resuscitative phase, secondary to ventricular fibrillation, status post defibrillation x2 with eventual return of spontaneous circulation. 2. Hypoxemic respiratory failure secondary to cardiopulmonary arrest, which required intubation and mechanical ventilation. 3. Rule out pneumonia. 4. Fluid overload. 5. Probable anoxic brain injury. 6. Status post cardiac catheterization with stenting of the left anterior descending coronary artery x2 and circumflex coronary artery x1. 7. History of chronic tobacco and alcohol dependence. 8. Probable chronic obstructive pulmonary disease from previous tobacco use. 9. Mild metabolic alkalosis. 10.Hypokalemia. 11.Possible aspiration pneumonia. 12.History of erectile dysfunction. PLAN: Patient will have a bronchoscopy at the bedside to help remove secretions. Secretions will be sent to the laboratory for analysis. Thus far, cultures are negative. He remains on Zosyn. The patient did have a daily interruption of sedation today, but never got to spontaneous breathing trial, because he becomes very agitated. He became tachycardic and hypertensive. He becomes dyssynchronous with the ventilator. His respiratory rate zooms up about 40. Unfortunately, we have to resedate him. In the end, he may need tracheostomy and PEG tube next week. I will allow my partner to decide that. Critical care time 36 minutes. MMODL / IJN: [id number] /
--- NOTE | 2019-02-24 11:53 | XR ---
EXAMINATION TYPE: XR chest 1V portable DATE OF EXAM: 02/24/2019 HISTORY: post Et tube placement. REFERENCE: Previous study from earlier today.. FINDINGS: The patient remains intubated. NG tube is in place. Its tip is in the stomach. There is right basilar airspace disease. There are small, bilateral effusions, greater on the right l eft. The heart is mildly enlarged. IMPRESSION: NO SIGNIFICANT INTERVAL CHANGE IN THE APPEARANCE OF THE CHEST.
[2019-02-24 12:00] LABS: Glucose,Whole Blood 135 mg/dL (75-99)
[2019-02-24] MEDS: SODIUM CHLORIDE 0.9% 1,000 ML IV SCH (12:05)
--- NOTE | 2019-02-24 12:21 | PCN ---
PROCEDURE NOTE PROCEDURE PERFORMED: Bronchoscopy airway examination, therapeutic lavage and BAL right middle lobe. PREOP DIAGNOSES: Pneumonia, retained secretions, respiratory failure. POSTOP DIAGNOSES: Pneumonia, retained secretions, respiratory failure. OPERATORS: Dr. Blount and Dr. Lipscomb. We did have informed consent. PROCEDURE DESCRIPTION: The patient's procedure was done right in the room in the ICU room 255. The patient was placed on 100% oxygen, sedated and paralyzed with Nimbex 10 mg. The bronchoscope adapter was connected to the endotracheal tube. The bronchoscope was inserted through the bronchoscope adapter. The endotracheal tube was seen to be above the tracheal josefina. The right and left mainstem were topicalized. Right upper lobe and its 3 segments, right middle lobe and its 2 segments, right lower lobe and its 5 segments, the left upper lobe and its 2 segments, the lingula and its 2 segments and the left lower lobe and its 4 segments all had similar findings of diffuse airway erythema and hyperemia. There were thick secretions noted throughout. There was some mucosal friability. The secretions were suctioned with some difficulty. The bronchoscope was wedged into the right middle lobe. The BAL took place. Roughly 25 mL was recovered. The fluid will be sent for analysis. There was no immediate complication. The FiO2 will be turned back down to 50%. Again the patient tolerated the procedure well without difficulty. MMODL / IJN: [id number] /
--- NOTE | 2019-02-24 12:31 | PCN ---
PROCEDURE NOTE PROCEDURE PERFORMED: This is a re-intubation. PREOP DIAGNOSIS: A faulty endotracheal tube. Computer Project Manager balloon. POSTOP DIAGNOSIS: A faulty endotracheal tube. Computer Project Manager balloon. DROP HAMMER SET UP OPERATOR: Dr. Blount and Dr. Lipscomb. DESCRIPTION OF PROCEDURE: The patient's procedure took place in room 255 in the ICU. The old endotracheal tube had an obvious significant leak. The endotracheal stylet or bougie, was placed through the old endotracheal tube. The old endotracheal tube pilot can router balloon was deflated. The endotracheal tube was pulled over the bougie. The new endotracheal tube was pushed over the bougie. The new pilot can router balloon was inflated. The patient binds were what they should be. There was no leak. The patient was reconnected to the ventilator. There was no immediate complication. The patient's vital signs are stable throughout the procedure. The patient's new endotracheal tube was placed at 24 cm at the lip which is where the old endotracheal tube was. There was no immediate complication. The patient tolerated the procedure well. MMODL / IJN: [id number] /
[2019-02-24 13:27] LABS: Appearance,BF Cloudy; Color,BF Red; Nucleated Cells, Body Fluid 1844 /uL; RBC, Body Fluid 5489 /uL
[2019-02-24 13:30] LABS: Mononuclear WBC,Body Fluid 97 %; Polynuclear WBC,Body Fluid 3 %; Total Cells Counted,Body Fluid 100
--- NOTE | 2019-02-24 14:18 | PN ---
PROGRESS NOTE This patient's electronic medical records reviewed. The patient is status post cardiac arrest/stent to the LAD and circumflex coronary artery. It has been difficult to extubate the patient. Every time the patient's sedation is weaned off, the patient becomes agitated and the patient develops tachycardia and hypertension. Dr. Blount's notes reviewed. Patient may end up with a tracheostomy next week. The patient cardiac- manning otherwise remains stable. First and second heart sounds are normal. Lungs examination revealed bilateral scattered rhonchi and rales. Continue the current medications. He patient had a bronchoscopy done today. MMODL / IJN: [id number] /
--- NOTE | 2019-02-24 16:17 | P.PN ---
Subjective This is a pleasant 53 years old male with no significant past medical history. Patient could not provide information which were obtained from the medical records and his staff. Documents patient has been diagnosed with pneumonia for about a week, also patient is a cigarette smoker about 2 packs per day and alcohol drinker with both liquor and beer. Patient was getting more dyspneic last night however he was drinking alcohol. Family called 911 . In route patient suffered cardiopulmonary arrest with a showing V. fib, patient underwent resuscitation with CPR and cardiac electric shock as he has been having unresponsive and pulseless. Aspirin 324 mg was provided for the patient. I'll refer to the emergency room patient was still pending. And pulseless, he received more electric shock and CPR, eventually patient and his pills. EKG s howed acute STEMI and STEMI alert was called. Patient admitted intubation and mechanical ventilation. He underwent emergent cardiac cath showing total occlusion of the left anterior descending artery and 90% stenosis of the circumflex coronary artery with large dominant right coronary artery Currently patient remains in the ICU, his moderately tachycardic with heart rate 115-120, blood pressure 121/79, breathing rate 18, saturating 96% with FiO2 of 70%, patient is afebrile. Labs showing WBC of 16.8 K, hemoglobin 15.8. Electrolytes are within normal limits and creatinine 1.0, elevated lactic acid 4.6 and 3.0, elevated troponin 146. Elevated liver enzymes with AST 25 and ALT 271. Serum alcohol level was 211. Chest x-ray: Evidence of interstitial face pulmonary edema Patient currently on aspirin 81 mg, Lipitor 80 mg and Brillinta. As well as normal saline 75 mL/h This morning patient have a low-grade temperature of 99.9, patient has a Lizama catheter were don't repeat urinalysis. Patient has NG tube with a few millimeters of dark-colored aspirated fluid, or going to check occult blood in sample. Patient is currently moderately tachycardic around 120 02/22/2019 Patient remains in the ICU, intubated and sedated. His undergoing weaning trial by critical care team. Hemoglobin remained stable despite being started on aspirin and ramipril intact with positive occult blood in the stomach secretions. She will feeding can be started today. Patient continued having fever today at 100. Chest x-ray showed patchy density in the right upper lobe suspicious for pneumonia versus atelectasis. Sputum culture still pending as well as urine culture. pro-calcitonin is ordered. Patient is slightly tachycardic and tachypneic. He is getting Ativan as needed for agitation as part of his CID[facility] protocol. He got 3 mg of Ativan yesterday and 2 mg overnight. Patient continue on normal saline at 75 mL/h Left showing improvement leukocytosis down to 13.6, worsening liver enzymes, h owever bilirubin is within normal limits 02/23/19 Patient remains in the ICU, intubated and sedated. His undergoing weaning trial by critical care team for the second day.Hb stable , has leukocytosis of 14.1K compared to 13.6 yesterday , and pt was started on zosyn for possible pna, as chest xray : small right and retrocardiac infilterate. K 3.4 and creatinine 0.9, liver enz improved from 500+ to around 200. pt remains sedated and unresponsive and he might need further neurological evaluation if no awaking, CT brain: no acute event but dense MCA and radiologist recommended to consider contrast study. 02/24/19 Patient remains in the ICU, difficult to arouse, a still dependent on mechanical ventilation.patient underwent bronchoscopy and BALtoday.current specimens were sent for lab. Also construction equipment overhauler following the case closelyand patient is to continue with the same medication, currently he is on Zosyn normal saline at 40 mL/h. Also he is on intravenous Lasix 40 mg. he is Still tachycardic and tachypneic. His W BC is coming down slightly to 12.1 K. Low potassium was replaced.patient is followed closely by critical care team. Review of systems: N/a Active Medications Generic Name Dose Route Start Last Admin Trade Name Freq PRN Reason Stop Dose Admin Acetaminophen 650 mg 02/21/19 06:50 02/24/19 06:34 Tylenol Tab PO 650 mg Q4HR PRN Administration Fever and/or Mild Pain Al Hydroxide/Mg Hydroxide 30 ml 02/20/19 22:02 Maalox PO Q4HR PRN Heartburn Albuterol/Ipratropium 3 ml 02/21/19 12:00 02/24/19 15:05 Duoneb 0.5 Mg-3 Mg/3 Ml Soln INHALATION 3 ml RT-Q4H SUKHDEEP Administration Albuterol/Ipratropium 3 ml 02/21/19 10:16 Duoneb 0.5 Mg-3 Mg/3 Ml Soln INHALATION RT-Q2H PRN Shortness Of Breath Or Wheezing Aspirin 81 mg 02/21/19 09:00 02/24/19 08:44 Aspirin PO 81 mg DAILY SUKHDEEP Administration Atorvastatin Calcium 80 mg 02/21/19 21:00 02/23/19 20:05 Lipitor PO 80 mg HS SUKHDEEP Administration Chlorhexidine Gluconate 15 ml 02/21/19 09:00 02/24/19 08:44 Peridex MUCOUS MEM 15 ml BID SUKHDEEP Administration Furosemide 40 mg 02/22/19 11:30 02/24/19 15:04 Lasix IV 40 mg Q8HR SUKHDEEP Administration Hydromorphone HCl 1 mg 02/22/19 01:11 02/23/19 06:04 Dilaudid IVP 1 mg Q4HR PRN Administration Pain Propofol 1,000 mg/ IV Solution 100 mls @ 0 mls/hr 02/20/19 21:30 02/24/19 11:14 IV Infused .Q0M SUKHDEEP Titration Protocol Titrate Sodium Chloride 1,000 mls @ 40 mls/hr 02/21/19 23:15 02/24/19 12:05 Saline 0.9% IV Not Given .Q24H SUKHDEEP Piperacillin Sod/Tazobactam 100 mls @ 25 mls/hr 02/22/19 16:00 02/24/19 08:42 Sod 3.375 gm/ Sodium Chloride IVPB 25 mls/hr Q8HR SUKHDEEP Administration Lorazepam 1 mg 02/21/19 07:36 02/22/19 21:27 Ativan IV 1 mg Q2HR PRN Administration CIWA 8 or 9 Lorazepam 1 mg 02/21/19 07:36 02/23/19 12:07 Ativan IV 1 mg Q1HR PRN Administration CIWA 10 to 15 Metoprolol Tartrate 12.5 mg 02/21/19 16:00 02/24/19 15:04 Lopressor PO 12.5 mg TID SUKHDEEP Administration Miscellaneous Information 1 each 02/23/19 04:45 Potassium Per Protocol MISCELLANE DAILY PRN Per Protocol Protocol Naloxone HCl 0.2 mg 02/21/19 06:50 Narcan IV Q2M PRN Opioid Reversal Pantoprazole Sodium 40 mg 02/21/19 21:00 02/24/19 08:44 Protonix IVP 40 mg BID SUKHDEEP Administration Thiamine HCl 100 mg 02/21/19 09:00 02/24/19 08:44 Vitamin B-1 IVP 100 mg DAILY SUKHDEEP Administration Ticagrelor 90 mg 02/21/19 09:00 02/24/19 08:44 Brilinta PO 90 mg BID SUKHDEEP Administration Objective - Vital Signs Vital signs: Vital Signs Temp 100.9 F H 02/24/19 08:00 Pulse 106 H 02/24/19 15:25 Resp 26 H 02/24/19 11:00 BP 121/69 02/24/19 00:00 Pulse Ox 94 L 02/24/19 11:00 Intake & Output 02/23/19 02/24/19 02/24/19 18:59 06:59 18:59 Intake Total 9348.352 2703.931 620.000 Output Total 2600 1255 1230 Balance -1150.000 528.931 -610.000 Weight 121.8 kg 119.5 kg Intake: IV 880 480 340 Piperacillin-Tazobactam 3 100 100 .375 gm In Sodium Chloride 0.9% 100 ml @ 25 mls/hr IVPB Q8HR SUKHDEEP Rx# :[id number] Potassium Chloride 10 meq 200 In Water For Injection 1 100ml.bag @ 100 mls/hr IVPB Q1HR SUKHDEEP Rx#: [id number] Sodium Chloride 0.9% 1, 580 480 240 000 ml @ 40 mls/hr IV . Q24H SUKHDEEP Rx#:[id number] Intake, IV Titration 300.000 573.931 100.000 Amount Piperacillin-Tazobactam 3 100 .375 gm In Sodium Chloride 0.9% 100 ml @ 25 mls/hr IVPB Q8HR SUKHDEEP Rx# :[id number] Propofol 1,000 mg In 300.000 473.931 100.000 Empty Bag 1 bag @ Titrate IV .Q0M SUKHDEEP Rx#: [id number] Tube Feeding 180 240 120 Other 90 490 60 Output: Urine 2600 1255 1230 Other: Voiding Method Indwelling Catheter Indwelling Catheter ABP, PAP, CO, CI - Last Documented Arterial Blood Pressure 101/68 - Exam -GENERAL: The patient is intubated and sedated. He is currently on mechanical ventilation HEENT: Pupils are round and equally reacting to light. EOMI. No scleral icterus. No conjunctival pallor. Normocephalic, atraumatic. No pharyngeal erythema. No thyromegaly. CARDIOVASCULAR: S1 and S2 present. No murmurs, rubs, or gallops. PULMONARY: Chest is clear to auscultation, no wheezing or crackles. -ABDOMEN: Soft, nontender, nondistended, normoactive bowel sounds. No palpable organomegaly. NG tube is in place. Lizama catheter is in place MUSCULOSKELETAL: No joint swelling or deformity. EXTREMITIES: No cyanosis, clubbing, or pedal edema. NEUROLOGICAL: Gross neurological examination did not reveal any focal deficits. SKIN: No rashes. No petechiae - Labs CBC & Chem 7: 02/24/19 05:20 02/24/19 05:20 Labs: Abnormal Lab Results - Last 24 Hours (Table) 02/23/19 02/24/19 02/24/19 Range/Units 16:55 00:12 01:50 WBC (3.8-10.6) k/uL RBC (4.30-5.90) m/uL Hct (39.0-53.0) % Neutrophils # (1.3-7.7) k/uL ABG pH (7.35-7.45) ABG pO2 (83-108) mmHg ABG HCO3 (21-25) mmol/L ABG Total CO2 (19-24) mmol/L ABG O2 Saturation (94-97) % Potassium 3.4 L 3.3 L (3.5-5.1) mmol/L Carbon Dioxide (22-30) mmol/L BUN (9-20) mg/dL Glucose (74-99) mg/dL POC Glucose (mg/dL) 134 H (75-99) mg/dL Delta Bilirubin (0.0-0.2) mg/dL AST (17-59) U/L ALT (4-49) U/L 02/24/19 02/24/19 02/24/19 Range/Units 04:15 05:20 05:20 WBC 12.1 H (3.8-10.6) k/uL RBC 4.27 L (4.30-5.90) m/uL Hct 38.5 L (39.0-53.0) % Neutrophils # 9.5 H (1.3-7.7) k/uL ABG pH 7.50 H (7.35-7.45) ABG pO2 63 L (83-108) mmHg ABG HCO3 33 H (21-25) mmol/L ABG Total CO2 34 H (19-24) mmol/L ABG O2 Saturation 93.4 L (94-97) % Potassium (3.5-5.1) mmol/L Carbon Dioxide 34 H (22-30) mmol/L BUN 26 H (9-20) mg/dL Glucose 133 H (74-99) mg/dL POC Glucose (mg/dL) (75-99) mg/dL Delta Bilirubin 0.5 H (0.0-0.2) mg/dL AST 174 H (17-59) U/L ALT 132 H (4-49) U/L 02/24/19 02/24/19 Range/Units 05:43 11:48 WBC (3.8-10.6) k/uL RBC (4.30-5.90) m/uL Hct (39.0-53.0) % Neutrophils # (1.3-7.7) k/uL ABG pH (7.35-7.45) ABG pO2 (83-108) mmHg ABG HCO3 (21-25) mmol/L ABG Total CO2 (19-24) mmol/L ABG O2 Saturation (94-97) % Potassium (3.5-5.1) mmol/L Carbon Dioxide (22-30) mmol/L BUN (9-20) mg/dL Glucose (74-99) mg/dL POC Glucose (mg/dL) 139 H 135 H (75-99) mg/dL Delta Bilirubin (0.0-0.2) mg/dL AST (17-59) U/L ALT (4-49) U/L Microbiology - Last 24 Hours (Table) 02/21/19 11:09 Blood Culture - Preliminary Blood No Growth after 72 hours Assessment and Plan Assessment: -Acute anterior lateral STEMI, status post emergent cardiac cath showing total occlusion of LAD and 90% stenosis of circumflex coronary artery, status post stent placements 3 -Status post cardiac arrest secondary to V. fib, status post successful CPR and electric shock -Acute hypoxic respiratory failure status post intubation and mechanical ventilation -Alcohol abuse and risks of alcohol withdrawal -Right side and retrocardiac pneumonia -Nicotine dependence -Elevated lactic acid. Improvement -Elevated liver enzymes, mostly secondary to shock liver Plan: This is a 53 years old male who presents with cardiac arrest secondary to acute STEMI, status post cardiac cath showing CAD and stent placement. Follow-up recommendation by construction equipment overhauler and cotton tipper. Continue with aspirin, Brillinta and Lipitor. Vent management as per pulmonary team. Start the patient on CIWA protocol, continue with thiamine. continue with zosyn and f/u culture results. follow up the pt neurologically Labs and medication were reviewed.. Continue same treatment. Continue with symptomatic treatment. Resume home medication. Monitor lytes and vitals. DVT and GI prophylaxis. Further recommendations of the clinical course of the patient DVT prophylaxis: aspirin and Brillinta GI Prophylaxis: Protonix Prognosis is guarded
[2019-02-24] MEDS: ATORVASTATIN 80 MG TAB PO SCH (20:57)
[2019-02-25 00:09] LABS: Glucose,Whole Blood 123 mg/dL (75-99)
[2019-02-25] MEDS ORDERED: Potassium Replacement Protocol 1 EACH MISC MISCELLANE PRN (00:58)
[2019-02-25] MEDS ORDERED: POTASSIUM BICARBONATE/CIT AC 20 MEQ TABLET.EFF NG-TUBE SCH ×2 (01:00→06:00)
[2019-02-25] MEDS: PROPOFOL 1,000 MG in EMPTY BAG 1 BAG IV SCH ×7 (02:29→23:43)
[2019-02-25] MEDS: IPRATROPIUM-ALBUTEROL 3 ML NEB INHALATION SCH ×6 (03:36→23:45)
[2019-02-25 04:54] LABS: ABG Base Excess 13.1 mmol/L; ABG HCO3 37 mmol/L (21-25); ABG Oxygen Saturation 97.5 % (94-97); ABG PCO2 51 mmHg (35-45); ABG PH 7.47 (7.35-7.45); ABG PO2 90 mmHg (83-108); ABG TCO2 38 mmol/L (19-24); Allen Test Performed? Yes
[2019-02-25 05:03] LABS: Basophils # (A) 0.1 k/uL (0-0.2); Basophils % (A) 1 %; Eosinophils # (A) 0.6 k/uL (0-0.7); Eosinophils % (A) 5 %; HCT 37.2 % (39.0-53.0); Lymphocytes # (A) 1.7 k/uL (1.0-4.8); Lymphocytes % (A) 15 %; MCH 31.7 pg (25.0-35.0); MCHC 34.9 g/dL (31.0-37.0); MCV 90.8 fL (80.0-100.0); Mean Platelet Volume 8.3; Monocytes # (A) 0.6 k/uL (0-1.0); Monocytes % (A) 5 %; Neutrophils # (A) 8.3 k/uL (1.3-7.7); Neutrophils % (A) 73 %; Platelet Count 201 k/uL (150-450); RBC 4.09 m/uL (4.30-5.90); RDW 12.7 % (11.5-15.5); WBC 11.3 k/uL (3.8-10.6)
[2019-02-25 05:12] LABS: African American GFR (CKD) >90 (>60 ml/min/1.73 sqM); Anion Gap 3 mmol/L; Blood Urea Nitrogen 34 mg/dL (9-20); Carbon Dioxide 37 mmol/L (22-30); Chloride 100 mmol/L (98-107); Glucose 132 mg/dL (74-99); Non-African American GFR(CKD) >90 (>60 ml/min/1.73 sqM); Potassium 3.7 mmol/L (3.5-5.1); Sodium 140 mmol/L (137-145)
[2019-02-25 06:07] LABS: Glucose,Whole Blood 128 mg/dL (75-99)
--- NOTE | 2019-02-25 06:08 | XR ---
EXAMINATION TYPE: XR chest 1V portable DATE OF EXAM: 02/25/2019 HISTORY: Tube placement. REFERENCE: Previous study dated 02/24/2019. FINDINGS: There is ET tube and NG tube remain in place, unchanged in appearance. There continues be some right basilar atelectasis. Left lung is clear. The heart is mildly prominent. There is blunting of the left CP angle and I could not exclude a small effusion. IMPRESSION: 1. CONTINUING RIGHT BASILAR ATELECTASIS. 2. I COULD NOT EXCLUDE A SMALL LEFT-SIDED EFFUSION.
--- NOTE | 2019-02-25 08:22 | P.PN ---
Subjective This is a pleasant 53 years old male with no significant past medical history. Patient could not provide information which were obtained from the medical records and his staff. Documents patient has been diagnosed with pneumonia for about a week, also patient is a cigarette smoker about 2 packs per day and alcohol drinker with both liquor and beer. Patient was getting more dyspneic last night however he was drinking alcohol. Family called 911 . In route patient suffered cardiopulmonary arrest with a showing V. fib, patient underwent resuscitation with CPR and cardiac electric shock as he has been having unresponsive and pulseless. Aspirin 324 mg was provided for the patient. I'll refer to the emergency room patient was still pending. And pulseless, he received more electric shock and CPR, eventually patient and his pills. EKG s howed acute STEMI and STEMI alert was called. Patient admitted intubation and mechanical ventilation. He underwent emergent cardiac cath showing total occlusion of the left anterior descending artery and 90% stenosis of the circumflex coronary artery with large dominant right coronary artery Currently patient remains in the ICU, his moderately tachycardic with heart rate 115-120, blood pressure 121/79, breathing rate 18, saturating 96% with FiO2 of 70%, patient is afebrile. Labs showing WBC of 16.8 K, hemoglobin 15.8. Electrolytes are within normal limits and creatinine 1.0, elevated lactic acid 4.6 and 3.0, elevated troponin 146. Elevated liver enzymes with AST 25 and ALT 271. Serum alcohol level was 211. Chest x-ray: Evidence of interstitial face pulmonary edema Patient currently on aspirin 81 mg, Lipitor 80 mg and Brillinta. As well as normal saline 75 mL/h This morning patient have a low-grade temperature of 99.9, patient has a Lizama catheter were don't repeat urinalysis. Patient has NG tube with a few millimeters of dark-colored aspirated fluid, or going to check occult blood in sample. Patient is currently moderately tachycardic around 120 02/22/2019 Patient remains in the ICU, intubated and sedated. His undergoing weaning trial by critical care team. Hemoglobin remained stable despite being started on aspirin and ramipril intact with positive occult blood in the stomach secretions. She will feeding can be started today. Patient continued having fever today at 100. Chest x-ray showed patchy density in the right upper lobe suspicious for pneumonia versus atelectasis. Sputum culture still pending as well as urine culture. pro-calcitonin is ordered. Patient is slightly tachycardic and tachypneic. He is getting Ativan as needed for agitation as part of his CIWA protocol. He got 3 mg of Ativan yesterday and 2 mg overnight. Patient continue on normal saline at 75 mL/h Left showing improvement leukocytosis down to 13.6, worsening liver enzymes, h owever bilirubin is within normal limits 02/23/19 Patient remains in the ICU, intubated and sedated. His undergoing weaning trial by critical care team for the second day.Hb stable , has leukocytosis of 14.1K compared to 13.6 yesterday , and pt was started on zosyn for possible pna, as chest xray : small right and retrocardiac infilterate. K 3.4 and creatinine 0.9, liver enz improved from 500+ to around 200. pt remains sedated and unresponsive and he might need further neurological evaluation if no awaking, CT brain: no acute event but dense MCA and radiologist recommended to consider contrast study. 02/24/19 Patient remains in the ICU, difficult to arouse, a still dependent on mechanical ventilation.patient underwent bronchoscopy and BALtoday.current specimens were sent for lab. Also client services assistant following the case closelyand patient is to continue with the same medication, currently he is on Zosyn normal saline at 40 mL/h. Also he is on intravenous Lasix 40 mg. he is Still tachycardic and tachypneic. His W BC is coming down slightly to 12.1 K. Low potassium was replaced.patient is followed closely by critical care team. 02/25/2019 Patient remains in the ICU intubated. He is status post bronchoscopy yesterday and his breathing is easier today, his still tachypneic though at 24, however his less tachycardic down to 96-98 blood pressure 101/60. Patient has persistent fever between 100 to 100.8. Another sample of blood culture sent last night, cultures are negative so far. Patient remains on Zosyn. We got to consult infectious disease for help with the antibiotic choice. His WBC is 11.3 Review of systems: N/a Active Medications Generic Name Dose Route Start Last Admin Trade Name Freq PRN Reason Stop Dose Admin Acetaminophen 650 mg 02/21/19 06:50 02/24/19 06:34 Tylenol Tab PO 650 mg Q4HR PRN Administration Fever and/or Mild Pain Al Hydroxide/Mg Hydroxide 30 ml 02/20/19 22:02 Maalox PO Q4HR PRN Heartburn Albuterol/Ipratropium 3 ml 02/21/19 12:00 02/25/19 07:54 Duoneb 0.5 Mg-3 Mg/3 Ml Soln INHALATION 3 ml RT-Q4H SUKHDEEP Administration Albuterol/Ipratropium 3 ml 02/21/19 10:16 Duoneb 0.5 Mg-3 Mg/3 Ml Soln INHALATION RT-Q2H PRN Shortness Of Breath Or Wheezing Aspirin 81 mg 02/21/19 09:00 02/24/19 08:44 Aspirin PO 81 mg DAILY SUKHDEEP Administration Atorvastatin Calcium 80 mg 02/21/19 21:00 02/24/19 20:57 Lipitor PO 80 mg HS SUKHDEEP Administration Chlorhexidine Gluconate 15 ml 02/21/19 09:00 02/24/19 20:57 Peridex MUCOUS MEM 15 ml BID SUKHDEEP Administration Hydromorphone HCl 1 mg 02/22/19 01:11 02/23/19 06:04 Dilaudid IVP 1 mg Q4HR PRN Administration Pain Propofol 1,000 mg/ IV Solution 100 mls @ 0 mls/hr 02/20/19 21:30 02/25/19 05:26 IV 65 mcg/kg/min .Q0M SUKHDEEP 46.605 mls/hr Administration Protocol Titrate Sodium Chloride 1,000 mls @ 40 mls/hr 02/21/19 23:15 02/24/19 12:05 Saline 0.9% IV Not Given .Q24H SUKHDEEP Piperacillin Sod/Tazobactam 100 mls @ 25 mls/hr 02/22/19 16:00 02/24/19 23:36 Sod 3.375 gm/ Sodium Chloride IVPB 25 mls/hr Q8HR SUKHDEEP Administration Lorazepam 1 mg 02/21/19 07:36 02/22/19 21:27 Ativan IV 1 mg Q2HR PRN Administration CIWA 8 or 9 Lorazepam 1 mg 02/21/19 07:36 02/23/19 12:07 Ativan IV 1 mg Q1HR PRN Administration CIWA 10 to 15 Metoprolol Tartrate 12.5 mg 02/21/19 16:00 02/24/19 21:00 Lopressor PO 12.5 mg TID SUKHDEEP Administration Miscellaneous Information 1 each 02/23/19 04:45 Potassium Per Protocol MISCELLANE DAILY PRN Per Protocol Protocol Miscellaneous Information 1 each 02/25/19 00:58 Potassium Per Protocol MISCELLANE DAILY PRN Per Protocol Protocol Naloxone HCl 0.2 mg 02/21/19 06:50 Narcan IV Q2M PRN Opioid Reversal Nicotine 1 patch 02/25/19 09:00 Habitrol 14mg/24hr Patch TRANSDERM DAILY [facility] Pantoprazole Sodium 40 mg 02/21/19 21:00 02/24/19 20:58 Protonix IVP 40 mg BID SUKHDEEP Administration Thiamine HCl 100 mg 02/21/19 09:00 02/24/19 08:44 Vitamin B-1 IVP 100 mg DAILY SUKHDEEP Administration Ticagrelor 90 mg 02/21/19 09:00 02/24/19 20:57 Brilinta PO 90 mg BID SUKHDEEP Administration Objective - Vital Signs Vital signs: Vital Signs Temp 99.7 F H 02/25/19 04:00 Pulse 98 02/25/19 08:05 Resp 24 02/25/19 07:00 BP 121/69 02/25/19 01:00 Pulse Ox 95 02/25/19 07:00 Intake & Output 02/24/19 02/25/19 02/25/19 18:59 06:59 18:59 Intake Total 6009.433 3975.129 150 Output Total 2230 1395 150 Balance -1220.000 -102.871 0 Weight 117.2 kg Intake: IV 580 480 80 Piperacillin-Tazobactam 3 100 .375 gm In Sodium Chloride 0.9% 100 ml @ 25 mls/hr IVPB Q8HR SUKHDEEP Rx# :[id number] Sodium Chloride 0.9% 1, 480 480 80 000 ml @ 40 mls/hr IV . Q24H SUKHDEEP Rx#:[id number] Intake, IV Titration 100.000 432.129 Amount Propofol 1,000 mg In 100.000 432.129 Empty Bag 1 bag @ Titrate IV .Q0M SUKHDEEP Rx#: [id number] Tube Feeding 240 220 40 Other 90 160 30 Output: Urine 2230 1395 150 Other: Voiding Method Indwelling Catheter Indwelling Catheter ABP, PAP, CO, CI - Last Documented Arterial Blood Pressure 101/60 - Exam -GENERAL: The patient is intubated and sedated. He is currently on mechanical ventilation HEENT: Pupils are round and equally reacting to light. EOMI. No scleral icterus. No conjunctival pallor. Normocephalic, atraumatic. No pharyngeal erythema. No thyromegaly. CARDIOVASCULAR: S1 and S2 present. No murmurs, rubs, or gallops. PULMONARY: Chest is clear to auscultation, no wheezing or crackles. -ABDOMEN: Soft, nontender, nondistended, normoactive bowel sounds. No palpable organomegaly. NG tube is in place. Lizama catheter is in place MUSCULOSKELETAL: No joint swelling or deformity. EXTREMITIES: No cyanosis, clubbing, or pedal edema. NEUROLOGICAL: Gross neurological examination did not reveal any focal deficits. SKIN: No rashes. No petechiae - Labs CBC & Chem 7: 02/25/19 04:52 02/25/19 04:52 Labs: Abnormal Lab Results - Last 24 Hours (Table) 02/24/19 02/24/19 02/24/19 Range/Units 11:48 19:55 23:57 WBC (3.8-10.6) k/uL RBC (4.30-5.90) m/uL Hct (39.0-53.0) % Neutrophils # (1.3-7.7) k/uL ABG pH (7.35-7.45) ABG pCO2 (35-45) mmHg ABG HCO3 (21-25) mmol/L ABG Total CO2 (19-24) mmol/L ABG O2 Saturation (94-97) % Potassium 3.3 L (3.5-5.1) mmol/L Carbon Dioxide (22-30) mmol/L BUN (9-20) mg/dL Glucose (74-99) mg/dL POC Glucose (mg/dL) 135 H 123 H (75-99) mg/dL 02/25/19 02/25/19 02/25/19 Range/Units 04:50 04:52 04:52 WBC 11.3 H (3.8-10.6) k/uL RBC 4.09 L (4.30-5.90) m/uL Hct 37.2 L (39.0-53.0) % Neutrophils # 8.3 H (1.3-7.7) k/uL ABG pH 7.47 H (7.35-7.45) ABG pCO2 51 H (35-45) mmHg ABG HCO3 37 H (21-25) mmol/L ABG Total CO2 38 H (19-24) mmol/L ABG O2 Saturation 97.5 H (94-97) % Potassium (3.5-5.1) mmol/L Carbon Dioxide 37 H (22-30) mmol/L BUN 34 H (9-20) mg/dL Glucose 132 H (74-99) mg/dL POC Glucose (mg/dL) (75-99) mg/dL 02/25/19 Range/Units 05:55 WBC (3.8-10.6) k/uL RBC (4.30-5.90) m/uL Hct (39.0-53.0) % Neutrophils # (1.3-7.7) k/uL ABG pH (7.35-7.45) ABG pCO2 (35-45) mmHg ABG HCO3 (21-25) mmol/L ABG Total CO2 (19-24) mmol/L ABG O2 Saturation (94-97) % Potassium (3.5-5.1) mmol/L Carbon Dioxide (22-30) mmol/L BUN (9-20) mg/dL Glucose (74-99) mg/dL POC Glucose (mg/dL) 128 H (75-99) mg/dL Microbiology - Last 24 Hours (Table) 02/24/19 10:15 Gram Stain - Preliminary Bronchial Washings - Random Bronchial Washings Culture - Preliminary 02/24/19 10:15 Fungal Culture - Preliminary Bronchial Washings - Random 02/21/19 11:09 Blood Culture - Preliminary Blood No Growth after 72 hours Assessment and Plan Assessment: -Acute anterior lateral STEMI, status post emergent cardiac cath showing total occlusion of LAD and 90% stenosis of circumflex coronary artery, status post stent placements 3 -Status post cardiac arrest secondary to V. fib, status post successful CPR and electric shock -Possible pneumonia with persistent fever -Acute hypoxic respiratory failure status post intubation and mechanical ventilation -Alcohol abuse and risks of alcohol withdrawal -Right side and retrocardiac pneumonia -Nicotine dependence -Elevated lactic acid. Improvement -Elevated liver enzymes, mostly secondary to shock liver Plan: This is a 53 years old male who presents with cardiac arrest secondary to acute STEMI, status post cardiac cath showing CAD and stent placement. Follow-up recommendation by client services assistant and landscape foreman. Continue with aspirin, Brillinta and Lipitor. Vent management as per pulmonary team. Start the tricia ent on CIWA protocol, continue with thiamine. continue with zosyn and f/u culture results. Consult infectious disease for possible pneumonia versus others and persistent fever Labs and medication were reviewed.. Continue same treatment. Continue with symptomatic treatment. Resume home medication. Monitor lytes and vitals. DVT and GI prophylaxis. Further recommendations of the clinical course of the patient DVT prophylaxis: aspirin and Brillinta GI Prophylaxis: Protonix Prognosis is guarded
[2019-02-25] MEDS: THIAMINE 100 MG/ML 2 ML VIAL IVP SCH (08:24)
[2019-02-25] MEDS: CHLORHEXIDINE GLUCONATE 15 ML CUP MUCOUS MEM SCH ×2 (08:24→21:03)
[2019-02-25] MEDS: TICAGRELOR 90 MG TAB PO SCH ×2 (08:24→21:04)
[2019-02-25] MEDS: NICOTINE 14MG/24HR PATCH TRANSDERM SCH (08:24)
[2019-02-25] MEDS: PIPERACILLIN-TAZOBACTAM 3.375 GM in SODIUM CHLORIDE 0.9% 100 ML IVPB SCH ×3 (08:24→23:44)
[2019-02-25] MEDS: ASPIRIN 81 MG PO SCH (08:24)
[2019-02-25] MEDS: METOPROLOL TARTRATE 12.5 MG TAB PO SCH ×3 (08:24→21:04)
[2019-02-25] MEDS: PANTOPRAZOLE 40 MG/10 ML VIAL IVP SCH ×2 (08:25→21:03)
--- NOTE | 2019-02-25 08:41 | XR ---
EXAMINATION TYPE: XR chest 1V portable DATE OF EXAM: 02/25/2019 HISTORY: verify tube placement. REFERENCE: Previous study dated 02/25/2019. FINDINGS: Patient's ET tube and NG tube remain in place, unchanged in appearance. The heart is mildly prominent. There is bibasilar atelectasis. I suspect small, bilateral effusions. IMPRESSION: 1. BIBASILAR ATELECTASIS. 2. SMALL, BILATERAL EFFUSIONS. 3. MILD CARDIOMEGALY.
--- NOTE | 2019-02-25 08:52 | PN ---
PROGRESS NOTE DATE OF SERVICE: February 25, 2019 This is a 53-year-old gentleman who was admitted on February 20 for an [id number] cardiopulmonary arrest. He had a prolonged resuscitation phase. He was found to have ventricular fibrillation arrest and was defibrillated twice. He did eventually have return of spontaneous circulation. He has been on the mechanical ventilator since February 20. He went to the catheterization laboratory and was found to have significant disease in the LAD and circumflex coronary artery and he received 2 stents in the LAD and 1 stent in the circumflex artery. We have attempted daily interruptions of sedation with spontaneous breathing trial but unfortunately, the patient has done poorly. Every time we let him off sedation, he is very agitated, tachypneic. He becomes hypertensive and tachycardic. We have really not had an opportunity to move him toward weaning or liberation from mechanical ventilation. In the end, he may require tracheostomy and PEG tube placement. Yesterday, he had a substantial leak from the playground aide balloon on the endotracheal tube. We did an endotracheal tube change yesterday. He remains on the volume assist-control mode rate of 24, tidal volume 450, FiO2 of 50%, PEEP of 5. Blood gases show pO2 of 90, pCO2 of 51 and a pH of 7.47. His blood gases again consistent with a metabolic alkalosis. His IV is 0.9 at 50 40 mL an hour. He is getting propofol at 55 mcg/kg per minute and Vital high-protein at 20 with a goal of 20 mL an hour. His endotracheal tube on his chest x-ray today is a bit high in the trachea. I have asked the respiratory therapist to push it down 1.5-2 cm. In addition, because he has a previous heavy smoker, we will add a nicotine patch. PHYSICAL EXAMINATION: VITAL SIGNS: Current vital signs are reviewed his temperature is 99.7, heart rate is 96, respiratory rate 24, blood pressure 101/60, saturations 95%. Appears in no acute distress. Currently sedated. HEENT examination is grossly unremarkable. Mucous membranes are moist. No oral lesions. NECK: Supple. Full range of motion. No adenopathy or thyromegaly. Neck veins are flat. CARDIOVASCULAR examination reveals regular rhythm rate. S1, S2 normal. Heart rate 96 beats per minute. LUNGS: Reveal coarse bilateral rhonchi. No wheezes or crackles. Breath sounds equal. ABDOMEN: Soft. Bowel sounds are heard. EXTREMITIES are intact. No cyanosis, clubbing, or edema. SKIN: Without rash. NEUROLOGIC: Examination is difficult to assess given his current level of sedation. Microbiologic studies including bronch washes, sputum blood and urine are all negative. We did do a bronch and BAL on the patient yesterday prior to changes endotracheal tube. LABORATORY DATA: Includes a white count 11.3, hemoglobin 13, hematocrit 37.2, platelet count 3 1000. Sodium 140, potassium 3.7, chloride 100 CO2 37 his BUN and creatinine were 34 and 0.92. Glucose is 132. A chest x-ray done this morning shows some right basilar atelectasis and a small left- sided pleural effusion. MEDICATIONS: Reviewed. Currently, the patient is on Tylenol, aspirin, Lipitor, chlorhexidine, Lasix, Dilaudid, DuoNeb, Ativan p.r.n., Maalox, metoprolol, Narcan, nicotine patch, Protonix, Zosyn, potassium replacement, thiamine, and Brilinta. ASSESSMENT: 1. Out of hospital cardiopulmonary arrest with prolonged down time and resuscitative phase, secondary to ventricular fibrillation, status post defibrillation x2 with eventual return of spontaneous circulation (ROSC). 2. Hypoxemic respiratory failure secondary to cardiopulmonary arrest, which required intubation and mechanical ventilation. 3. Rule out aspiration pneumonia. 4. Fluid overload. 5. Probable anoxic brain injury. 6. Status post cardiac catheterization with stenting of the left anterior descending coronary artery x2 and circumflex coronary artery x1. 7. History of chronic tobacco and alcohol dependence. 8. Probable chronic obstructive pulmonary disease from previous tobacco use. 9. Metabolic alkalosis. 10.Hypokalemia. 11.Possible aspiration pneumonia. 12.History of erectile dysfunction. PLAN: Lasix will be discontinued. That should help the volume contraction induced alkalosis and hypokalemia. The patient remained on the ventilator. We will do a daily interruption of sedation and if stable, spontaneous breathing trial. Today we add a nicotine patch at 14 mg a day. Finally, we pushed the endotracheal tube done 1-1/2 cm. It is a bit high in the trachea. No additional recommendations are made. Prognosis is guarded. In the end, the patient may require a tracheostomy and PEG tube placement. Critical care time 35 minutes. MMODL / IJN: [id number] /
[2019-02-25] MEDS: SODIUM CHLORIDE 0.9% 1,000 ML IV SCH (11:48)
[2019-02-25 12:18] LABS: Glucose,Whole Blood 123 mg/dL (75-99)
[2019-02-25] MEDS: LORazepam 2 MG/ML INJ IV PRN (12:46)
[2019-02-25] MEDS ORDERED: VANCOMYCIN IV PER PHARMACY 1 EACH MISC MISCELLANE PRN (13:13)
[2019-02-25] MEDS: VANCOMYCIN 2,250 MG in SODIUM CHLORIDE 0.9% 500 ML 500 ML IVPB SCH (14:06)
[2019-02-25 14:08] LABS: ABG Base Excess 11.8 mmol/L; ABG HCO3 35 mmol/L (21-25); ABG Oxygen Saturation 96.3 % (94-97); ABG PCO2 44 mmHg (35-45); ABG PH 7.51 (7.35-7.45); ABG PO2 79 mmHg (83-108); ABG TCO2 36 mmol/L (19-24); Allen Test Performed? Yes
[2019-02-25] MEDS: ATORVASTATIN 80 MG TAB PO SCH (21:04)
[2019-02-26] MEDS: VANCOMYCIN 2,250 MG in SODIUM CHLORIDE 0.9% 500 ML 500 ML IVPB SCH ×2 (02:10→14:26)
[2019-02-26] MEDS: PROPOFOL 1,000 MG in EMPTY BAG 1 BAG IV SCH ×2 (02:11→04:55)
[2019-02-26] MEDS: IPRATROPIUM-ALBUTEROL 3 ML NEB INHALATION SCH ×6 (04:05→23:37)
[2019-02-26 04:32] LABS: ABG Base Excess 10.3 mmol/L; ABG HCO3 34 mmol/L (21-25); ABG Oxygen Saturation 98.1 % (94-97); ABG PCO2 48 mmHg (35-45); ABG PH 7.46 (7.35-7.45); ABG PO2 99 mmHg (83-108); ABG TCO2 36 mmol/L (19-24); Allen Test Performed? Yes
[2019-02-26 04:40] LABS: Basophils # (A) 0.1 k/uL (0-0.2); Basophils % (A) 1 %; Eosinophils # (A) 0.7 k/uL (0-0.7); Eosinophils % (A) 7 %; HCT 35.4 % (39.0-53.0); HGB 12.1 gm/dL (13.0-17.5); Lymphocytes # (A) 1.7 k/uL (1.0-4.8); Lymphocytes % (A) 15 %; MCH 31.2 pg (25.0-35.0); MCHC 34.2 g/dL (31.0-37.0); MCV 91.4 fL (80.0-100.0); Mean Platelet Volume 8.6; Monocytes # (A) 0.7 k/uL (0-1.0); Monocytes % (A) 6 %; Neutrophils # (A) 7.7 k/uL (1.3-7.7); Neutrophils % (A) 69 %; Platelet Count 206 k/uL (150-450); RBC 3.87 m/uL (4.30-5.90); RDW 12.7 % (11.5-15.5); WBC 11.1 k/uL (3.8-10.6)
[2019-02-26 04:49] LABS: African American GFR (CKD) >90 (>60 ml/min/1.73 sqM); Anion Gap 2 mmol/L; Blood Urea Nitrogen 36 mg/dL (9-20); Carbon Dioxide 35 mmol/L (22-30); Chloride 104 mmol/L (98-107); Glucose 132 mg/dL (74-99); Non-African American GFR(CKD) >90 (>60 ml/min/1.73 sqM); Potassium 3.4 mmol/L (3.5-5.1); Sodium 141 mmol/L (137-145)
[2019-02-26] MEDS: POTASSIUM BICARBONATE/CIT AC 20 MEQ TABLET.EFF NG-TUBE SCH ×2 (06:00→07:01)
--- NOTE | 2019-02-26 08:13 | XR ---
EXAMINATION TYPE: XR chest 1V portable DATE OF EXAM: 02/26/2019 COMPARISON: 02/25/2019 HISTORY: SOB, Follow Up FINDINGS: Indwelling tubes and catheters are unchanged. Right basilar atelectasis noted. Pulmonary venous engorgement without overt failure. Stable appearance of the cardio-mediastinal structures at this time. Pleural effusion unchanged. IMPRESSION: 1. Right basilar atelectasis noted. Pulmonary venous engorgement without overt failure.
[2019-02-26] MEDS: ASPIRIN 81 MG PO SCH (08:16)
[2019-02-26] MEDS: TICAGRELOR 90 MG TAB PO SCH ×2 (08:16→20:42)
[2019-02-26] MEDS: NICOTINE 14MG/24HR PATCH TRANSDERM SCH (08:16)
[2019-02-26] MEDS: PANTOPRAZOLE 40 MG/10 ML VIAL IVP SCH ×2 (08:16→20:42)
[2019-02-26] MEDS: METOPROLOL TARTRATE 12.5 MG TAB PO SCH ×3 (08:16→20:41)
[2019-02-26] MEDS: CHLORHEXIDINE GLUCONATE 15 ML CUP MUCOUS MEM SCH (08:16)
[2019-02-26] MEDS: PIPERACILLIN-TAZOBACTAM 3.375 GM in SODIUM CHLORIDE 0.9% 100 ML IVPB SCH ×2 (08:17→16:19)
--- NOTE | 2019-02-26 08:28 | P.PN ---
Subjective Progress Note Date: 02/26/19 53 yo male patient was being seen in follow-up in the intensive care unit. The patient has been in the ICU for an hour of hospital cardiopulmonary arrest.. The patient had a prolonged resuscitation. The patient had ventricular fibrillation arrest and he was defibrillated twice. He is currently in the intensive care units. This morning he is on sedation on 50 mics of propofol. I was told that was being given a sedation holidays the patient would wake up and follows some simple commands. Nevertheless he becomes very tachypneic and he was not a candidate for further weaning. Brain has been negative. His been intubated since 02/20/2019. He is on IV normal saline today to 40 mL an hour. He is not receiving any pressors. He has not adequate urine output. Echocardiogram showed an ejection fraction of 40-45% and the patient had some mild to moderate impairment of the LV, apical and lateral and inferior wall hypokinesis along with septal hypokinesis. No significant valvular abnormalitie s. This morning, he is an assist-control mode at the rate of 24 with a tidal volume of 450 and FiO2 of 70 with a PEEP of 5 and a blood care showed a pH of 7.46 with a pCO2 of 47 and pO2 of 98. Chest x-ray is showing adequate positioning of the ET tube. The patient has some limited bilateral pulmonary infiltrates more so on the right. The patient a bronchoscopy earlier that showed no microbial growth of the cultures of been all negative. Currently is on bronchodilators around the clock. He is on aspirin. He is on Brilinta. He is receiving IV Zosyn as an empiric antibiotic coverage and vancomycin. He is on metoprolol 12.5 mg by mouth 3 times a day his pro-calcitonin level at time of admission was 0.22. Nevertheless, her currently he is afebrile. Objective - Vital Signs Vital signs: Vital Signs Temp 99.7 F H 02/26/19 04:00 Pulse 84 02/26/19 07:40 Resp 24 02/26/19 07:00 BP 121/69 02/25/19 01:00 Pulse Ox 96 02/26/19 07:00 Intake & Output 02/25/19 02/26/19 02/26/19 18:59 06:59 18:59 Intake Total 8674.397 3307.590 70 Output Total 865 880 50 Balance 901.915 891.590 20 Weight 118 kg Intake: IV 1180 1080 40 Piperacillin-Tazobactam 3 200 100 .375 gm In Sodium Chloride 0.9% 100 ml @ 25 mls/hr IVPB Q8HR [facility] Rx# :[id number] Sodium Chloride 0.9% 1, 480 480 40 000 ml @ 40 mls/hr IV . Q24H [facility] Rx#:[id number] Vancomycin 2,250 mg In 500 500 Sodium Chloride 0.9% 500 ml 500 ml @ 167 mls/hr IVPB Q12H [facility] Rx#: [id number] Intake, IV Titration 256.915 311.590 Amount Propofol 1,000 mg In 256.915 311.590 Empty Bag 1 bag @ Titrate IV .Q0M [facility] Rx#: [id number] Tube Feeding 240 290 30 Other 90 90 Output: Urine 865 880 50 Other: Voiding Method Indwelling Catheter Indwelling Catheter ABP, PAP, CO, CI - Last Documented Arterial Blood Pressure 104/61 - Exam Gen. appearance, comfortable likely distress, sedated this morning Head exam was generally normal. There was no scleral icterus or corneal arcus. Mucous membranes were moist. Neck was supple and without jugular venous distension, thyromegaly, or carotid bruits. Carotids were easily palpable bilaterally. There was no adenopathy.Orogastric and orotracheal tube are both in place Lungs were clear to auscultation and percussion, and with normal diaphragmatic excursion. No wheezes or rales were noted. Cardiac exam revealed the PMI to be normally situated and sized. The rhythm was regular and no extrasystoles were noted during several minutes of auscultation. The first and second heart sounds were normal and physiologic splitting of the second heart sound was noted. There were no murmurs, rubs, clicks, or gallops. Abdominal exam revealed normal bowel sounds. The abdomen was soft, non-tender, and without masses, organomegaly, or appreciable enlargement of the abdominal aorta. Examination of the extremities revealed easily palpable radial, femoral and pedal pulses. There was no cyanosis, clubbing or edema. Examination of the skin revealed no evidence of significant rashes, suspicious appearing nevi or other concerning lesions. Neurologically his pupils are round 4 mm in size reactive to light. No nystagmus. No clonus. No Babinski. He is able to squeeze and uses upper extremities upon demand. - Labs CBC & Chem 7: 02/26/19 04:26 02/26/19 04:26 Labs: Abnormal Lab Results - Last 24 Hours (Table) 02/25/19 02/25/19 02/26/19 Range/Units 12:07 14:06 04:26 WBC 11.1 H (3.8-10.6) k/uL RBC 3.87 L (4.30-5.90) m/uL Hgb 12.1 L (13.0-17.5) gm/dL Hct 35.4 L (39.0-53.0) % ABG pH 7.51 H (7.35-7.45) ABG pCO2 (35-45) mmHg ABG pO2 79 L (83-108) mmHg ABG HCO3 35 H (21-25) mmol/L ABG Total CO2 36 H (19-24) mmol/L ABG O2 Saturation (94-97) % Potassium (3.5-5.1) mmol/L Carbon Dioxide (22-30) mmol/L BUN (9-20) mg/dL Glucose (74-99) mg/dL POC Glucose (mg/dL) 123 H (75-99) mg/dL 02/26/19 02/26/19 Range/Units 04:26 04:29 WBC (3.8-10.6) k/uL RBC (4.30-5.90) m/uL Hgb (13.0-17.5) gm/dL Hct (39.0-53.0) % ABG pH 7.46 H (7.35-7.45) ABG pCO2 48 H (35-45) mmHg ABG pO2 (83-108) mmHg ABG HCO3 34 H (21-25) mmol/L ABG Total CO2 36 H (19-24) mmol/L ABG O2 Saturation 98.1 H (94-97) % Potassium 3.4 L (3.5-5.1) mmol/L Carbon Dioxide 35 H (22-30) mmol/L BUN 36 H (9-20) mg/dL Glucose 132 H (74-99) mg/dL POC Glucose (mg/dL) (75-99) mg/dL Microbiology - Last 24 Hours (Table) 12/14/19 20:13 Blood Culture - Preliminary Blood No Growth after 24 hours 02/24/19 10:15 Gram Stain - Preliminary Bronchial Washings - Random Bronchial Washings Culture - Preliminary 02/21/19 11:09 Blood Culture - Preliminary Blood No Growth after 96 hours 02/24/19 09:15 Blood Culture - Preliminary Blood No Growth after 24 hours Assessment and Plan Plan: 1 acute STEMI, post emergent cardiac catheterization and insertion of coronary stents including the LAD and the circumflex 2 cardiac arrest, out of hospital secondary to ventricular fibrillation post IN, resuscitated currently intubated on a mechanical ventilator and hemodynamically stable 3 acute hypoxic respiratory failure secondary to above with a suspected right lower lobe pneumonia currently on a combination of Zosyn and vancomycin, remains intubated on a diminished level of consciousness, likely due to a component of hypoxic encephalopathy post cardiac arrest, improving and the CAT scan of the brain was negative 4right lower lobe pneumonia, likely aspiration 5 feversource is not clear, could be infectious, could be central fever 6 smoker 7 COPD 8 altered mentation, likely due to a component of hypoxic encephalopathy Plan Sedation holiday Weaning parameters Assess candidacy for weaning Cultures of been negative Monitor fever pattern use IV Tylenol for episodic fever and continue the same antibiotic coverage Aspirin and Brilinta and metoprolol Echo was noted We'll continue to follow make further recommendations based on her progress. We'll follow up this patient along with aggressive the consultants from cardiology and infectious disease. critically care evaluation, more than 30 minutes Time with Patient: Greater than 30
--- NOTE | 2019-02-26 09:39 | P.CONS ---
History of Present Illness - Reason for Consult Consult date: 02/26/19 fevers - History of Present Illness this is a 53-year-old male presented to the hospital on February 20 by EMS. He was initially picked up for transport due to dyspnea and was diagnosed with pneumonia 1 week ago. He does have a heavy smoking history at 2 packs per day and heavy drinking history at 3-5ths of liquor and multiple cases of beer per week. En route to the hospital, patient suffered a cardiac pulmonary arrest , CPR was started, patient was found to be in ventricular fibrillation and was shocked once with no success. He was pulseless and CPR was continued. Upon arrival to the ER, he was in V. fib and was defibrillated at 200 J and regained pulses. Patient was ruled in for ST elevated myocardial infarction and cardiology was contacted. Patient was intubated and placed on mechanical venti lation while in the emergency center. White count was initially 25.6. Serum alcohol 211, lactic acid 12.8. liver function tests were elevated and acute hepatitis panel was negative. Initial urinalysis bloody, repeat clear without signs of infection. Patient underwent heart catheterization with Dr. Ferguson finding totally occluded proximal LAD, 90% stenosis in the circumflex. He then underwent PTCA and stenting of the LAD and proximal circumflex with Dr. SIRISHA James. Patient remains intubated and on mechanical ventilation and has failed weaning attempts. He underwent bronchoscopy and BAL on February [address] Blount. [facility] washings culture in progress. Blood cultures all been negative. On February 22, patient was started on Zosyn for concern for aspiration pneumonia. Patient has been running a fever starting February 22, temperature maximum last 24 hours is 101.2. ET tube was also changed on February 24. Vancomycin added yesterday by ID. He has had improvement of leukocytosis down to 11.1. According to the patient's nurse, patient was following commands last week but became very combative. Most likely patient suffered from alcohol withdrawal. He is currently on the Sewall protocol and on a nicotine patch as well. He is opening in his eyes to command and moving fingers to commands. Patient is tolerating tube feedings, no diarrhea, no wounds or skin breakdown. Most recent chest x-ray reveals right basilar atelectasis. Pulmonary venous engorgement without heart failure. Review of Systems ROS unobtainable: due to endotracheal tube Past Medical History Past Medical History: Unable to Obtain History of Any Multi-Drug Resistant Organisms: None Reported Past Surgical History: Unable to Obtain Past Anesthesia/Blood Transfusion Reactions: No Reported Reaction Past Psychological History: No Psychological Hx Reported Smoking Status: Current every day smoker Additional Past Alcohol Use History / Comment(s): smoker of 2 packs per day, a lcohol abuse. Medications and Allergies Home Medications Medication Instructions Recorded Confirmed Type Aspirin EC [Ecotrin] 325 mg PO DAILY PRN 02/20/19 02/20/19 History Ibuprofen [Motrin Ib] 400 mg PO Q6H PRN 02/20/19 02/20/19 History guaiFENesin SYRUP 100MG/5ML 200 mg PO Q6H PRN 02/20/19 02/20/19 History [Robitussin] guaiFENesin [Mucinex] 600 mg PO BID PRN 02/20/19 02/20/19 History Allergies Allergy/AdvReac Type Severity Reaction Status Date / Time No Known Allergies Allergy Verified 02/20/19 21:54 Physical Exam Vitals: Vital Signs Temp Pulse Resp Pulse Ox 02/26/19 08:00 99.8 F H 98 24 96 02/26/19 07:40 84 02/26/19 07:30 96 02/26/19 07:00 92 24 96 02/26/19 06:00 87 24 97 02/26/19 05:00 93 24 97 02/26/19 04:28 91 02/26/19 04:05 90 02/26/19 04:00 99.7 F H 90 24 98 02/26/19 03:00 94 26 H 96 02/26/19 02:00 93 24 96 02/26/19 01:00 96 25 H 96 02/26/19 00:20 97 25 H 95 02/26/19 00:05 93 02/26/19 00:00 98.4 F 97 25 H 98 02/25/19 23:45 93 02/25/19 23:00 94 24 96 02/25/19 22:00 98 25 H 96 02/25/19 21:00 101 H 25 H 95 02/25/19 20:00 101.2 F H 104 H 26 H 96 02/25/19 19:05 105 H 25 H 02/25/19 19:00 102 H 24 96 02/25/19 18:49 103 H 24 02/25/19 18:00 100 24 95 02/25/19 17:00 105 H 28 H 94 L 02/25/19 16:00 101.2 F H 103 H 27 H 95 02/25/19 15:22 103 H 24 02/25/19 15:12 101 H 28 H 02/25/19 15:00 101 H 30 H 92 L 02/25/19 14:00 105 H 32 H 94 L 02/25/19 13:00 98 27 H 95 02/25/19 12:00 100.9 F H 101 H 25 H 95 02/25/19 11:50 98 02/25/19 11:34 96 02/25/19 11:00 99 28 H 94 L 02/25/19 10:00 100 24 98 02/25/19 09:00 101 H 24 96 Intake and Output 02/25/19 02/26/19 02/26/19 22:59 06:59 14:59 Intake Total 0186.434 4400.505 70 Output Total 605 510 50 Balance 634.223 948.505 20 Intake: IV 920 920 40 Piperacillin-Tazobactam 3 100 100 .375 gm In Sodium Chloride 0.9% 100 ml @ 25 mls/hr IVPB Q8HR [facility] Rx# :[id number] Sodium Chloride 0.9% 1, 320 320 40 000 ml @ 40 mls/hr IV . Q24H [facility] Rx#:[id number] Vancomycin 2,250 mg In 500 500 Sodium Chloride 0.9% 500 ml 500 ml @ 167 mls/hr IVPB Q12H [facility] Rx#: [id number] Intake, IV Titration 99.223 268.505 Amount Propofol 1,000 mg In 99.223 268.505 Empty Bag 1 bag @ Titrate IV .Q0M [facility] Rx#: [id number] Tube Feeding 160 210 30 Other 60 60 Output: Urine 605 510 50 Other: Voiding Method Indwelling Catheter Indwelling Catheter Weight 118 kg ABP, PAP, CO, CI - Last 8 Hours Arterial Blood Pressure 118/64 Arterial Blood Pressure 104/61 Arterial Blood Pressure 120/67 Arterial Blood Pressure 119/64 Arterial Blood Pressure 97/57 Arterial Blood Pressure 104/56 Arterial Blood Pressure 98/54 Arterial Blood Pressure 105/58 Gen: This is a 53-year-old male. He is resting in the ICU bed and appears to comfortable and in no acute distress. HEENT: Head is atraumatic, normocephalic. Pupils equal, round. Sclerae is anicteric.oral mucous membranes are moist. ET and orogastric tube in place. NECK: Supple. No JVD. No lymphadenopathy. No thyromegaly. LUNGS: Clear to auscultation. No wheezes or rhonchi. No intercostal retractions. HEART: Regular rate and rhythm. No murmur. ABDOMEN: Soft. Bowel sounds are present. No masses. No tenderness. EXTREMITIES: No pedal edema. No calf tenderness.dorsalis pedis +2 bilaterally. No rashes noted. NEUROLOGICAL: Patient is awake, he is able to open his eyes to commands and squeeze hands. Results Results: Laboratory Results WBC 11.1 k/uL (3.8-10.6) H 02/26/19 04:26 RBC 3.87 m/uL (4.30-5.90) L 02/26/19 04:26 Hgb 12.1 gm/dL (13.0-17.5) L 02/26/19 04:26 Hct 35.4 % (39.0-53.0) L 02/26/19 04:26 MCV 91.4 fL (80.0-100.0) 02/26/19 04:26 MCH 31.2 pg (25.0-35.0) 02/26/19 04:26 MCHC 34.2 g/dL (31.0-37.0) 02/26/19 04:26 RDW 12.7 % (11.5-15.5) 02/26/19 04:26 Plt Count 206 k/uL (150-450) 02/26/19 04:26 Neutrophils % 69 % 02/26/19 04:26 Neutrophils % (Manual) 53 % 02/20/19 20:27 Band Neutrophils % 1 % 02/20/19 20:27 Lymphocytes % 15 % 02/26/19 04:26 Lymphocytes % (Manual) 43 % 02/20/19 20:27 Monocytes % 6 % 02/26/19 04:26 Eosinophils % 7 % 02/26/19 04:26 Eosinophils % (Manual) 3 % 02/20/19 20:27 Basophils % 1 % 02/26/19 04:26 Neutrophils # 7.7 k/uL (1.3-7.7) 02/26/19 04:26 Neutrophils # (Manual) 13.80 k/uL (1.3-7.7) H 02/20/19 20:27 Lymphocytes # 1.7 k/uL (1.0-4.8) 02/26/19 04:26 Lymphocytes # (Manual) 11.01 k/uL (1.0-4.8) H 02/20/19 20:27 Monocytes # 0.7 k/uL (0-1.0) 02/26/19 04:26 Eosinophils # 0.7 k/uL (0-0.7) 02/26/19 04:26 Eosinophils # (Manual) 0.77 k/uL (0-0.7) H 02/20/19 20:27 Basophils # 0.1 k/uL (0-0.2) 02/26/19 04:26 Nucleated RBCs 0 /100 WBC (0-0) 02/20/19 20:27 Manual Slide Review Performed 02/20/19 20:27 Toxic Granulation Present 02/20/19 20:27 RBC Morphology Normal 02/20/19 20:27 PT 10.2 sec (9.0-12.0) 02/20/19 20:27 INR 0.9 (<1.2) 02/20/19 20:27 APTT 24.5 sec (22.0-30.0) 02/20/19 20:27 Sample Site [place] 02/26/19 04:29 ABG pH 7.46 (7.35-7.45) H 02/26/19 04:29 ABG pCO2 48 mmHg (35-45) H 02/26/19 04:29 ABG pO2 99 mmHg (83-108) 02/26/19 04:29 ABG HCO3 34 mmol/L (21-25) H 02/26/19 04:29 ABG Total CO2 36 mmol/L (19-24) H 02/26/19 04:29 ABG O2 Saturation 98.1 % (94-97) H 02/26/19 04:29 ABG Base Excess 10.3 mmol/L 02/26/19 04:29 Dipak Test Yes 02/26/19 04:29 FiO2 50 % 02/26/19 04:29 Sodium 141 mmol/L (137-145) 02/26/19 04:26 Potassium 3.4 mmol/L (3.5-5.1) L 02/26/19 04:26 Chloride 104 mmol/L (98-107) 02/26/19 04:26 Carbon Dioxide 35 mmol/L (22-30) H 02/26/19 04:26 Anion Gap 2 mmol/L 02/26/19 04:26 BUN 36 mg/dL (9-20) H 02/26/19 04:26 Creatinine 0.84 mg/dL (0.66-1.25) 02/26/19 04:26 Est GFR (CKD-EPI)AfAm >90 (>60 ml/min/1.73 sqM) 02/26/19 04:26 Est GFR (CKD-EPI)NonAf >90 (>60 ml/min/1.73 sqM) 02/26/19 04:26 Glucose 132 mg/dL (74-99) H 02/26/19 04:26 POC Glucose (mg/dL) 123 mg/dL (75-99) H 02/25/19 12:07 POC Glu [facility] Helper ID Shelly Nava 02/25/19 12:07 Lactic Ac Sepsis Rflx Y 02/21/19 10:12 Plasma Lactic Acid Cristopher 2.0 mmol/L (0.7-2.0) 02/21/19 14:12 Calcium 9.0 mg/dL (8.4-10.2) 02/26/19 04:26 Magnesium 2.3 mg/dL (1.6-2.3) 02/23/19 22:35 Total Bilirubin 0.9 mg/dL (0.2-1.3) 02/24/19 05:20 Conjugated Bilirubin 0.0 mg/dL (0.0-0.3) 02/24/19 05:20 Unconjugated Bilirubin 0.4 mg/dL (0.0-1.1) 02/24/19 05:20 Delta Bilirubin 0.5 mg/dL (0.0-0.2) H 02/24/19 05:20 AST 174 U/L (17-59) H 02/24/19 05:20 ALT 132 U/L (4-49) H 02/24/19 05:20 Alkaline Phosphatase 53 U/L (38-126) 02/24/19 05:20 Total Creatine Kinase 375 U/L (55-170) H 02/20/19 20:27 CK-MB (CK-2) 1.7 ng/mL (0.0-2.4) 02/20/19 20:27 CK-MB (CK-2) Rel Index 0.5 02/20/19 20:27 Troponin I 146.000 ng/mL (0.000-0.034) H* 02/21/19 04:28 Total Protein 6.7 g/dL (6.3-8.2) 02/24/19 05:20 Albumin 3.7 g/dL (3.5-5.0) 02/24/19 05:20 Amylase 63 U/L (30-110) 02/20/19 20:27 Lipase 244 U/L (23-300) 02/20/19 20:27 Procalcitonin 0.22 ng/mL (0.02-0.09) H 02/22/19 05:26 Urine Color Light Yellow 02/24/19 09:24 Urine Appearance Clear (Clear) 02/24/19 09:24 Urine pH 7.0 (5.0-8.0) 02/24/19 09:24 Ur Specific [place] 1.006 (1.001-1.035) 02/24/19 09:24 Urine Protein Negative (Negative) 02/24/19 09:24 Urine Glucose (UA) Negative (Negative) 02/24/19 09:24 Urine Ketones Negative (Negative) 02/24/19 09:24 Urine Blood Negative (Negative) 02/24/19 09:24 Urine Nitrite Negative (Negative) 02/24/19 09:24 Urine Bilirubin Negative (Negative) 02/24/19 09:24 Urine Urobilinogen <2.0 mg/dL (<2.0) 02/24/19 09:24 Ur Leukocyte Esterase Negative (Negative) 02/24/19 09:24 Urine RBC 44 /hpf (0-5) H 02/21/19 04:02 Urine WBC 25 /hpf (0-5) H 02/21/19 04:02 Urine WBC Clumps Occasional /hpf (None) H 02/21/19 04:02 Ur Squamous Epith Cells 2 /hpf (0-4) 02/21/19 04:02 Fluid Source Bronchial Wash 02/24/19 10:15 Fluid Color Red 02/24/19 10:15 Fluid Appearance Cloudy 02/24/19 10:15 Fluid RBC 5489 /uL 02/24/19 10:15 Fluid Nucleated Cells 1844 /uL 02/24/19 10:15 Fluid Polynuclear WBCs 3 % 02/24/19 10:15 Fluid Mononuclear WBCs 97 % 02/24/19 10:15 Gastric Occult Blood Positive (Negative) 02/21/19 08:20 Serum Alcohol 211 mg/dL H* 02/20/19 20:27 Hepatitis A IgM Ab Non-Reactive (Non-Reactive) 02/21/19 08:44 Hep Bs Antigen Non-Reactive (Non-Reactive) 02/21/19 08:44 Hep B Core IgM Ab Non-Reactive (Non-Reactive) 02/21/19 08:44 Hep C IgG Ab Non-Reactive (Non-Reactive) 02/21/19 08:44 Blood Type A Positive 02/20/19 20:27 Blood Type Confirm A Positive 02/20/19 20:43 Blood Type Recheck No Previous Record 02/20/19 20:27 Bld Type Recheck Status CABO Indicated 02/20/19 20:27 Antibody Screen NEGATIVE 02/20/19 20:27 Spec Expiration Date 02/23/2019232602/20/19 20:27 CBC & Chem 7: 02/26/19 04:26 02/26/19 04:26 Labs: Abnormal Lab Results - Last 24 Hours (Table) 02/25/19 02/25/19 02/26/19 Range/Units 12:07 14:06 04:26 WBC 11.1 H (3.8-10.6) k/uL RBC 3.87 L (4.30-5.90) m/uL Hgb 12.1 L (13.0-17.5) gm/dL Hct 35.4 L (39.0-53.0) % ABG pH 7.51 H (7.35-7.45) ABG pCO2 (35-45) mmHg ABG pO2 79 L (83-108) mmHg ABG HCO3 35 H (21-25) mmol/L ABG Total CO2 36 H (19-24) mmol/L ABG O2 Saturation (94-97) % Potassium (3.5-5.1) mmol/L Carbon Dioxide (22-30) mmol/L BUN (9-20) mg/dL Glucose (74-99) mg/dL POC Glucose (mg/dL) 123 H (75-99) mg/dL 02/26/19 02/26/19 Range/Units 04:26 04:29 WBC (3.8-10.6) k/uL RBC (4.30-5.90) m/uL Hgb (13.0-17.5) gm/dL Hct (39.0-53.0) % ABG pH 7.46 H (7.35-7.45) ABG pCO2 48 H (35-45) mmHg ABG pO2 (83-108) mmHg ABG HCO3 34 H (21-25) mmol/L ABG Total CO2 36 H (19-24) mmol/L ABG O2 Saturation 98.1 H (94-97) % Potassium 3.4 L (3.5-5.1) mmol/L Carbon Dioxide 35 H (22-30) mmol/L BUN 36 H (9-20) mg/dL Glucose 132 H (74-99) mg/dL POC Glucose (mg/dL) (75-99) mg/dL Microbiology - Last 24 Hours (Table) 02/24/19 20:13 Blood Culture - Preliminary Blood No Growth after 24 hours 02/24/19 10:15 Gram Stain - Preliminary Bronchial Washings - Random Bronchial Washings Culture - Preliminary 02/21/19 11:09 Blood Culture - Preliminary Blood No Growth after 96 hours 02/24/19 09:15 Blood Culture - Preliminary Blood No Growth after 24 hours Assessment and Plan Plan: this is a 53-year-old male who presented to the hospital with acute ST elevated myocardial infarction, cardiac arrest, acute hypoxic respiratory failure with possible right lower lobe pneumonia, suspected aspiration pneumonia, concern for hypoxic encephalopathy. Patient has had ongoing fevers. He was started on Zosyn and we have added in vancomycin.blood cultures thus far have all been showing no growth. Cultures from BAL are currently in progress. Patient is going on a sedation holiday today. Continue supportive care. Further recommendations as patient progresses. The above dictated assessment and findings were discussed with Dr. Diana. The impression and plan of care have been directed as dictated. Neetu Tolliver nurse practitioner acting as scribe for Dr. Diana.
[2019-02-26] MEDS: THIAMINE 100 MG/ML 2 ML VIAL IVP SCH (10:24)
[2019-02-26 12:12] LABS: Glucose,Whole Blood 128 mg/dL (75-99)
[2019-02-26] MEDS: SODIUM CHLORIDE 0.9% 1,000 ML IV SCH (14:20)
[2019-02-26] MEDS: ATORVASTATIN 80 MG TAB PO SCH (20:41)
--- NOTE | 2019-02-26 20:45 | P.CON ---
Consult Note - . Consult date: 02/26/19 Assessment/Plan:: this is a 53-year-old male presented to the hospital on February 20 by EMS. He was initially picked up for transport due to dyspnea and was diagnosed with pneumonia 1 week ago. He does have a heavy smoking history at 2 packs per day and heavy drinking history at 3-5ths of liquor and multiple cases of beer per week. En route to the hospital, patient suffered a cardiac pulmonary arrest , CPR was started, patient was found to be in ventricular fibrillation and was shocked once with no success. He was pulseless and CPR was continued. Upon arrival to the ER, he was in V. fib and was defibrillated at 200 J and regained pulses. Patient was ruled in for ST elevated myocardial infarction and cardiology was contacted. Patient was intubated and placed on mechanical ventilation while in the emergency center. White count was initially 25.6. Serum alcohol 211, lactic acid 12.8. liver function tests were elevated and acute hepatitis panel was negative. Initial urinalysis bloody, repeat clear without signs of infection. Patient underwent heart catheterization with Dr. Ferguson finding totally occluded proximal LAD, 90% stenosis in the circumflex. He then underwent PTCA and stenting of the LAD and proximal circumflex with Dr. SIRISHA James. Patient remains intubated and on mechanical ventilation and has failed weaning attempts. He underwent bronchoscopy and BAL on February [address] Blount. [facility] washings culture in progress. Blood cultures all been negative. On February 22, patient was started on Zosyn for concern for aspiration pneumonia. Patient has been running a fever starting February 22, temperature maximum last 24 hours is 101.2. ET tube was also changed on February 24. Vancomycin added yesterday by ID. He has had improvement of leukocytosis down to 11.1. According to the patient's nurse, patient was following commands last week but became very combative. Most likely patient suffered from alcohol withdrawal. He is currently on the Sewall protocol and on a nicotine patch as well. He is o pening in his eyes to command and moving fingers to commands. Patient is tolerating tube feedings, no diarrhea, no wounds or skin breakdown. Most recent chest x-ray reveals right basilar atelectasis. Pulmonary venous engorgement without heart failure. Please see the consult note is dictated by nurse practitioner Mrs. Neetu Tolliver. The patient has been extubated, and he is now able to interact with the observer there is attempted some communication. The patient's respiratory failure has resolved however bronchoscopy was performed another's evidence of the Gram stain and some gram-positive cocci. With that result vancomycin was added. Our final culture results are now available. Moraxella has been isolated antibiotic therapy is now de-escalate Rocephin. As he is starting to recover he's working at swallowing with some success. He understands that he will need to go slow. As he further improves the Rocephin can be transitioned to oral therapy to complete his course of therapy for his complex gram-negative pneumonia following cardiopulmonary arrest. I agree with evaluation, assessment and plan as dictated by nurse practitioner Mrs. Neetu Tolliver.
[2019-02-27] MEDS: IPRATROPIUM-ALBUTEROL 3 ML NEB INHALATION SCH ×6 (03:28→23:37)
[2019-02-27 05:28] LABS: HCT 31.8 % (39.0-53.0); HGB 11.2 gm/dL (13.0-17.5); MCH 31.8 pg (25.0-35.0); MCHC 35.3 g/dL (31.0-37.0); MCV 90.1 fL (80.0-100.0); Mean Platelet Volume 8.8; Platelet Count 205 k/uL (150-450); RBC 3.53 m/uL (4.30-5.90); RDW 12.7 % (11.5-15.5); WBC 15.4 k/uL (3.8-10.6)
[2019-02-27 05:45] LABS: ALT 72 U/L (4-49); AST 87 U/L (17-59); African American GFR (CKD) >90 (>60 ml/min/1.73 sqM); Albumin 3.2 g/dL (3.5-5.0); Alkaline Phosphatase 44 U/L (38-126); Anion Gap 6 mmol/L; Blood Urea Nitrogen 28 mg/dL (9-20); Calcium 8.8 mg/dL (8.4-10.2); Carbon Dioxide 28 mmol/L (22-30); Chloride 105 mmol/L (98-107); Glucose 110 mg/dL (74-99); Non-African American GFR(CKD) >90 (>60 ml/min/1.73 sqM); Phosphorus 2.9 mg/dL (2.5-4.5); Sodium 139 mmol/L (137-145); Total Bilirubin 0.9 mg/dL (0.2-1.3)
[2019-02-27] MEDS: POTASSIUM CHLORIDE ER 20 MEQ TAB.ER PO SCH ×2 (06:52→08:00)
--- NOTE | 2019-02-27 07:49 | XR ---
EXAMINATION TYPE: XR chest 1V portable DATE OF EXAM: 02/27/2019 CLINICAL HISTORY: Difficulty breathing progress study. TECHNIQUE: Single AP portable upright view of the chest is obtained. COMPARISON: Chest x-ray from one day earlier and older studies. FINDINGS: Interval extubation with interval endotracheal and orogastric tubes. New bilateral predomi nantly central alveolar and interstitial opacities. No pleural effusion or pneumothorax. Persistent p atchy bibasilar linear scarring and/or atelectasis. Cardiac silhouette size is stable and upper limit s of normal with ectatic aortic knob. Osseous structures are intact. Overlying EKG leads are seen. IMPRESSION: Interval extubation. Development of moderate bilateral predominantly central alveolar and interstitial edema and/or infiltrates. Progress study advised.
[2019-02-27] MEDS: PANTOPRAZOLE 40 MG/10 ML VIAL IVP SCH (08:00)
[2019-02-27] MEDS: ASPIRIN 81 MG PO SCH (08:01)
[2019-02-27] MEDS: TICAGRELOR 90 MG TAB PO SCH ×2 (08:01→21:20)
[2019-02-27] MEDS: METOPROLOL TARTRATE 12.5 MG TAB PO SCH ×3 (08:01→21:20)
[2019-02-27] MEDS: NICOTINE 14MG/24HR PATCH TRANSDERM SCH ×2 (08:01→08:07)
[2019-02-27] MEDS ORDERED: FUROSEMIDE 10 MG/ML 4 ML VIAL IV STA (08:05)
--- NOTE | 2019-02-27 08:05 | P.PN ---
Subjective Progress Note Date: 02/27/19 on 02/27/2019 I'm seeing the patient for follow-up. As mentioned earlier the patient is post cardiac arrest following an acute TX. I weaning him off the sedation yesterday and subsequently the patient shows adequate weaning parameters. He was given a spontaneous breathing trial and he was extubated. This morning he is wide awake communicating answering questions and moving all 4 extremities without any limitation. He has an adequate mentation. He is alert and oriented 3. I do not appreciate any focal neurological deficits. He is weak and he feels sore all over his body. His chest x-ray shows a little bit of new bilateral pulmonary infiltrates, possibly component of pulmonary vessel con gestion/edema. His bronchoscopy that was done earlier showed Moraxella catarrhalis and the patient is currently on IV Rocephin. Infectious diseases on the case. He is currently on oxygen at 8 L per minute nasal cannula. He is on no pressors. He is in sinus rhythm with a heart rate in the low 100s range. He is free of any chest pain. Lizama catheter is in place. Urine output is in order of any 5 mL an hour. IV fluids in the rate of 40 mL an hour of normal saline. Note that his echocardiogram at shown an ejection fraction of 40-45% with [id number] impairment of the LV, segmental wall motion abnormality is are also present. He is currently afebrile Objective - Vital Signs Vital signs: Vital Signs Temp 98.7 F 02/27/19 04:00 Pulse 107 H 02/27/19 07:14 Resp 27 H 02/27/19 07:00 BP 107/75 02/27/19 07:00 Pulse Ox 93 L 02/27/19 07:00 Intake & Output 02/26/19 02/27/19 02/27/19 18:59 06:59 18:59 Intake Total 1300 480 40 Output Total 925 920 120 Balance 375 -440 -80 Weight 118 kg 119.3 kg Intake: IV 1080 480 40 Piperacillin-Tazobactam 3 100 .375 gm In Sodium Chloride 0.9% 100 ml @ 25 mls/hr IVPB Q8HR [facility] Rx# :[id number] Sodium Chloride 0.9% 1, 480 480 40 000 ml @ 40 mls/hr IV . Q24H [facility] Rx#:[id number] Vancomycin 2,250 mg In 500 Sodium Chloride 0.9% 500 ml 500 ml @ 167 mls/hr IVPB Q12H [facility] Rx#: [id number] Intake, IV Titration 100 Amount Propofol 1,000 mg In 100 Empty Bag 1 bag @ Titrate IV .Q0M [facility] Rx#: [id number] Tube Feeding 90 Other 30 Output: Urine 925 920 120 Other: Voiding Method Indwelling Catheter Indwelling Catheter ABP, PAP, CO, CI - Last Documented Arterial Blood Pressure 93/68 - Exam Gen. appearance, comfortable likely distress, sawake alert and communicating no focal neurological deficit is currently on 8 L of oxygen by nasal cannula Head exam was generally normal. There was no scleral icterus or corneal arcus. Mucous membranes were moist. Neck was supple and without jugular venous distension, thyromegaly, or carotid bruits. Carotids were easily palpable bilaterally. There was no adenopathy. Lungs were clear to auscultation and percussion, and with normal diaphragmatic excursion. No wheezes or rales were noted. Cardiac exam revealed the PMI to be normally situated and sized. The rhythm was regular and no extrasystoles were noted during several minutes of auscultation. The first and second heart sounds were normal and physiologic splitting of the second heart sound was noted. There were no murmurs, rubs, clicks, or gallops. Abdominal exam revealed normal bowel sounds. The abdomen was soft, non-tender, and without masses, organomegaly, or appreciable enlargement of the abdominal aorta. Examination of the extremities revealed easily palpable radial, femoral and pedal pulses. There was no cyanosis, clubbing or edema. Examination of the skin revealed no evidence of significant rashes, suspicious appearing nevi or other concerning lesions. Neurologically his pupils are round 4 mm in size reactive to light. no focal neurological deficit. Motor weakness. - Labs CBC & Chem 7: 02/27/19 04:55 02/27/19 04:55 Labs: Abnormal Lab Results - Last 24 Hours (Table) 02/26/19 02/27/19 02/27/19 Range/Units 12:00 04:55 04:55 WBC 15.4 H (3.8-10.6) k/uL RBC 3.53 L (4.30-5.90) m/uL Hgb 11.2 L (13.0-17.5) gm/dL Hct 31.8 L (39.0-53.0) % Potassium 3.0 L (3.5-5.1) mmol/L BUN 28 H (9-20) mg/dL Glucose 110 H (74-99) mg/dL POC Glucose (mg/dL) 128 H (75-99) mg/dL AST 87 H (17-59) U/L ALT 72 H (4-49) U/L Total Protein 6.0 L (6.3-8.2) g/dL Albumin 3.2 L (3.5-5.0) g/dL Microbiology - Last 24 Hours (Table) 02/24/19 20:13 Blood Culture - Preliminary Blood No Growth after 48 hours 02/21/19 11:09 Blood Culture - Preliminary Blood No Growth after 120 hours 02/24/19 09:15 Blood Culture - Preliminary Blood No Growth after 48 hours 02/24/19 10:15 Gram Stain - Final Bronchial Washings - Random Bronchial Washings Culture - Final Moraxella(branhamella) catarra Assessment and Plan Plan: 1 acute STEMI, post emergent cardiac catheterization and insertion of coronary stents including the LAD and the circumflex 2 cardiac arrest, out of hospital secondary to ventricular fibrillation post TX, resuscitated currently intubated on a mechanical ventilator and hemodynamically stable 3 acute hypoxic respiratory failure secondary to above with a suspected right lower lobe pneumonia . The patient was extubated yesterday. His follow-up chest x-ray showed pulmonary edema and he'll be started on IV Lasix. Note that his bronchoscopy showed Moraxella catarrhalis and the patient is currently on IV Rocephin per IDs recommendation. 4 right lower lobe pneumonia, likely aspiration 5 fever, source is not clear, could be infectious, could be central fever currently the patient is afebrile 6 smoker 7 COPD 8 altered mentation, recovered and the patient is awake and alert 3 Plan the patient is extubated for now. He is awake and oriented 3 Aspirin and Brilinta and metoprolol Echo was noted give the patient dose of Lasix 40 mg IV push. Replace the potassium Wean down the FiO2 as tolerated to maintain a saturation above 90% Provide an incentive spirometer Continue metoprolol Provide diet Consult physical therapy We'll continue to follow.
[2019-02-27] MEDS: THIAMINE 100 MG/ML 2 ML VIAL IVP SCH (08:13)
[2019-02-27] MEDS: SODIUM CHLORIDE 0.9% 1,000 ML IV SCH (12:34)
[2019-02-27] MEDS ORDERED: VANCOMYCIN TROUGH DUE 1 EACH MISC MISCELLANE ONE (13:00)
[2019-02-27] MEDS: POTASSIUM BICARBONATE/CIT AC 20 MEQ TABLET.EFF NG-TUBE SCH ×2 (15:29→15:43)
[2019-02-27] MEDS: PANTOPRAZOLE 40 MG TABLET PO SCH (17:35)
[2019-02-27] MEDS: ATORVASTATIN 80 MG TAB PO SCH (21:20)
--- NOTE | 2019-02-27 22:36 | P.PN ---
Subjective Progress Note Date: 02/27/19 this is a 53-year-old male presented to the hospital on February 20 by EMS. He was initially picked up for transport due to dyspnea and was diagnosed with pneumonia 1 week ago. He does have a heavy smoking history at 2 packs per day and heavy drinking history at 3-5ths of liquor and multiple cases of beer per week. En route to the hospital, patient suffered a cardiac pulmonary arrest , CPR was started, patient was found to be in ventricular fibrillation and was shocked once with no success. He was pulseless and CPR was continued. Upon arrival to the ER, he was in V. fib and was defibrillated at 200 J and regained pulses. Patient was ruled in for ST elevated myocardial infarction and cardiology was contacted. Patient was intubated and placed on mechanical ventilation while in the emergency center. White count was initially 25.6. Serum alcohol 211, lactic acid 12.8. liver function tests were elevated and acute hepatitis panel was negative. Initial urinalysis bloody, repeat clear without signs of infection. Patient underwent heart catheterization with Dr. Ferguson finding totally occluded proximal LAD, 90% stenosis in the circumflex. He then underwent PTCA and stenting of the LAD and proximal circumflex with Dr. SIRISHA James. Patient remains intubated and on mechanical ventilation and has failed weaning attempts. He underwent bronchoscopy and BAL on February [address] Francine carney. [facility] washings culture in progress. Blood cultures all been negative. On February 22, patient was started on Zosyn for concern for aspiration pneumonia. Patient has been running a fever starting February 22, temperature maximum last 24 hours is 101.2. ET tube was also changed on February 24. Vancomycin added yesterday by ID. He has had improvement of leukocytosis down to 11.1. Darren johnson to the patient's nurse, patient was following commands last week but became very combative. Most likely patient suffered from alcohol withdrawal. He is currently on the Sewall protocol and on a nicotine patch as well. He is opening in his eyes to command and moving fingers to commands. Patient is tolerating tube feedings, no diarrhea, no wounds or skin breakdown. Most recent chest x- ray reveals right basilar atelectasis. Pulmonary venous engorgement without heart failure. 02/27/2019 patient is more awake and feels better,less SOB still has O2 on with adequate O2 saturation. Objective - Vital Signs Vital signs: Vital Signs Temp 99.7 F H 02/27/19 20:00 Pulse 105 H 02/27/19 21:28 Resp 16 02/27/19 21:00 BP 105/74 02/27/19 21:00 Pulse Ox 93 L 02/27/19 21:03 Intake & Output 02/27/19 02/27/19 02/28/19 06:59 18:59 06:59 Intake Total 480 380 60 Output Total 920 2080 175 Balance -440 -1700 -115 Weight 119.3 kg Intake: IV 480 380 60 Piperacillin-Tazobactam 3 100 .375 gm In Sodium Chloride 0.9% 100 ml @ 25 mls/hr IVPB Q8HR [facility] Rx# :[id number] Sodium Chloride 0.9% 1, 480 280 60 000 ml @ 10 mls/hr IV . Q24H [facility] Rx#:[id number] Output: Urine 920 2080 175 Other: Voiding Method Indwelling Catheter Indwelling Catheter ABP, PAP, CO, CI - Last Documented Arterial Blood Pressure 99/69 - Exam Gen: This is a 53-year-old male. He is resting in the ICU bed and appears to comfortable and in no acute distress. HEENT: Head is atraumatic, normocephalic. Pupils equal, round. Sclerae is anicteric.oral mucous membranes are moist. ET and orogastric tube in place. NECK: Supple. No JVD. No lymphadenopathy. No thyromegaly. LUNGS: Clear to auscultation. No wheezes or rhonchi. No intercostal retractions. HEART: Regular rate and rhythm. No murmur. ABDOMEN: Soft. Bowel sounds are present. No masses. No tenderness. EXTREMITIES: No pedal edema. No calf tenderness.dorsalis pedis +2 bilaterally. No rashes noted. NEUROLOGICAL: Patient is awake, alert and interactive, voice is stronger and content is improved. - Labs CBC & Chem 7: 02/27/19 04:55 02/27/19 13:15 Labs: Abnormal Lab Results - Last 24 Hours (Table) 02/24/19 02/27/19 02/27/19 Range/Units 10:15 04:55 04:55 WBC 15.4 H (3.8-10.6) k/uL RBC 3.53 L (4.30-5.90) m/uL Hgb 11.2 L (13.0-17.5) gm/dL Hct 31.8 L (39.0-53.0) % Potassium 3.0 L (3.5-5.1) mmol/L BUN 28 H (9-20) mg/dL Glucose 110 H (74-99) mg/dL AST 87 H (17-59) U/L ALT 72 H (4-49) U/L Total Protein 6.0 L (6.3-8.2) g/dL Albumin 3.2 L (3.5-5.0) g/dL Viral Test See Below H 02/27/19 Range/Units 13:15 WBC (3.8-10.6) k/uL RBC (4.30-5.90) m/uL Hgb (13.0-17.5) gm/dL Hct (39.0-53.0) % Potassium 3.1 L (3.5-5.1) mmol/L BUN (9-20) mg/dL Glucose (74-99) mg/dL AST (17-59) U/L ALT (4-49) U/L Total Protein (6.3-8.2) g/dL Albumin (3.5-5.0) g/dL Viral Test Microbiology - Last 24 Hours (Table) 02/24/19 20:13 Blood Culture - Preliminary Blood No Growth after 72 hours 02/21/19 11:09 Blood Culture - Final Blood No Growth after 144 hours 02/24/19 09:15 Blood Culture - Preliminary Blood No Growth after 72 hours Laboratory Results WBC 15.4 k/uL (3.8-10.6) H 02/27/19 04:55 RBC 3.53 m/uL (4.30-5.90) L 02/27/19 04:55 Hgb 11.2 gm/dL (13.0-17.5) L 02/27/19 04:55 Hct 31.8 % (39.0-53.0) L 02/27/19 04:55 MCV 90.1 fL (80.0-100.0) 02/27/19 04:55 MCH 31.8 pg (25.0-35.0) 02/27/19 04:55 MCHC 35.3 g/dL (31.0-37.0) 02/27/19 04:55 RDW 12.7 % (11.5-15.5) 02/27/19 04:55 Plt Count 205 k/uL (150-450) 02/27/19 04:55 Neutrophils % 69 % 02/26/19 04:26 Neutrophils % (Manual) 53 % 02/20/19 20:27 Band Neutrophils % 1 % 02/20/19 20:27 Lymphocytes % 15 % 02/26/19 04:26 Lymphocytes % (Manual) 43 % 02/20/19 20:27 Monocytes % 6 % 02/26/19 04:26 Eosinophils % 7 % 02/26/19 04:26 Eosinophils % (Manual) 3 % 02/20/19 20: Basophils % 1 % 02/26/19 04:26 Neutrophils # 7.7 k/uL (1.3-7.7) 02/26/19 04:26 Neutrophils # (Manual) 13.80 k/uL (1.3-7.7) H 02/20/19 20:27 Lymphocytes # 1.7 k/uL (1.0-4.8) 02/26/19 04:26 Lymphocytes # (Manual) 11.01 k/uL (1.0-4.8) H 02/20/19 20:27 Monocytes # 0.7 k/uL (0-1.0) 02/26/19 04:26 Eosinophils # 0.7 k/uL (0-0.7) 02/26/19 04:26 Eosinophils # (Manual) 0.77 k/uL (0-0.7) H 02/20/19 20:27 Basophils # 0.1 k/uL (0-0.2) 02/26/19 04:26 Nucleated RBCs 0 /100 WBC (0-0) 02/20/19 20:27 Manual Slide Review Performed 02/20/19 20: Toxic Granulation Present 02/20/19 20: RBC Morphology Normal 02/20/19 20:27 PT 10.2 sec (9.0-12.0) 02/20/19 20: INR 0.9 (<1.2) 02/20/19 20: APTT 24.5 sec (22.0-30.0) 02/20/19 20:27 Sample Site robby 02/26/19 04:29 ABG pH 7.46 (7.35-7.45) H 02/26/19 04:29 ABG pCO2 48 mmHg (35-45) H 02/26/19 04:29 ABG pO2 99 mmHg (83-108) 02/26/19 04:29 ABG HCO3 34 mmol/L (21-25) H 02/26/19 04:29 ABG Total CO2 36 mmol/L (19-24) H 02/26/19 04:29 ABG O2 Saturation 98.1 % (94-97) H 02/26/19 04:29 ABG Base Excess 10.3 mmol/L 02/26/19 04:29 Dipak Test Yes 02/26/19 04:29 FiO2 50 % 02/26/19 04:29 Sodium 139 mmol/L (137-145) 02/27/19 04:55 Potassium 3.1 mmol/L (3.5-5.1) L 02/27/19 13:15 Chloride 105 mmol/L (98-107) 02/27/19 04:55 Carbon Dioxide 28 mmol/L (22-30) 02/27/19 04:55 Anion Gap 6 mmol/L 02/27/19 04:55 BUN 28 mg/dL (9-20) H 02/27/19 04:55 Creatinine 0.69 mg/dL (0.66-1.25) 02/27/19 04:55 Est GFR (CKD-EPI)AfAm >90 (>60 ml/min/1.73 sqM) 02/27/19 04:55 Est GFR (CKD-EPI)NonAf >90 (>60 ml/min/1.73 sqM) 02/27/19 04:55 Glucose 110 mg/dL (74-99) H 02/27/19 04:55 POC Glucose (mg/dL) 128 mg/dL (75-99) H 02/26/19 12:00 POC Glu [employer] MIRLANDE Anshu Patrick 02/26/19 12:00 Lactic Ac Sepsis Rflx Y 02/21/19 10:12 Plasma Lactic Acid Cristopher 2.0 mmol/L (0.7-2.0) 02/21/19 14:12 Calcium 8.8 mg/dL (8.4-10.2) 02/27/19 04:55 Phosphorus 2.9 mg/dL (2.5-4.5) 02/27/19 04:55 Magnesium 2.0 mg/dL (1.6-2.3) 02/27/19 04:55 Total Bilirubin 0.9 mg/dL (0.2-1.3) 02/27/19 04:55 Conjugated Bilirubin 0.0 mg/dL (0.0-0.3) 02/24/19 05:20 Unconjugated Bilirubin 0.4 mg/dL (0.0-1.1) 02/24/19 05:20 Delta Bilirubin 0.5 mg/dL (0.0-0.2) H 02/24/19 05:20 AST 87 U/L (17-59) H 02/27/19 04:55 ALT 72 U/L (4-49) H 02/27/19 04:55 Alkaline Phosphatase 44 U/L (38-126) 02/27/19 04:55 Total Creatine Kinase 375 U/L (55-170) H 02/20/19 20:27 CK-MB (CK-2) 1.7 ng/mL (0.0-2.4) 02/20/19 20:27 CK-MB (CK-2) Rel Index 0.5 02/20/19 20:27 Troponin I 146.000 ng/mL (0.000-0.034) H* 02/21/19 04:28 Total Protein 6.0 g/dL (6.3-8.2) L 02/27/19 04:55 Albumin 3.2 g/dL (3.5-5.0) L 02/27/19 04:55 Amylase 63 U/L (30-110) 02/20/19 20:27 Lipase 244 U/L (23-300) 02/20/19 20:27 Procalcitonin 0.22 ng/mL (0.02-0.09) H 02/22/19 05:26 Urine Color Light Yellow 02/24/19 09:24 Urine Appearance Clear (Clear) 02/24/19 09:24 Urine pH 7.0 (5.0-8.0) 02/24/19 09:24 Ur Specific [place] 1.006 (1.001-1.035) 02/24/19 09:24 Urine Protein Negative (Negative) 02/24/19 09:24 Urine Glucose (UA) Negative (Negative) 02/24/19 09:24 Urine Ketones Negative (Negative) 02/24/19 09:24 Urine Blood Negative (Negative) 02/24/19 09:24 Urine Nitrite Negative (Negative) 02/24/19 09:24 Urine Bilirubin Negative (Negative) 02/24/19 09:24 Urine Urobilinogen <2.0 mg/dL (<2.0) 02/24/19 09:24 Ur Leukocyte Esterase Negative (Negative) 02/24/19 09:24 Urine RBC 44 /hpf (0-5) H 02/21/19 04:02 Urine WBC 25 /hpf (0-5) H 02/21/19 04:02 Urine WBC Clumps Occasional /hpf (None) H 02/21/19 04:02 Ur Squamous Epith Cells 2 /hpf (0-4) 02/21/19 04:02 Fluid Source Bronchial Wash 02/24/19 10:15 Fluid Color Red 02/24/19 10:15 Fluid Appearance Cloudy 02/24/19 10:15 Fluid RBC 5489 /uL 02/24/19 10:15 Fluid Nucleated Cells 1844 /uL 02/24/19 10:15 Fluid Polynuclear WBCs 3 % 02/24/19 10:15 Fluid Mononuclear WBCs 97 % 02/24/19 10:15 Gastric Occult Blood Positive (Negative) 02/21/19 08:20 Vancomycin Trough <5.0 ug/mL 02/27/19 13:15 Serum Alcohol 211 mg/dL H* 02/20/19 20:27 Hepatitis A IgM Ab Non-Reactive (Non-Reactive) 02/21/19 08:44 Hep Bs Antigen Non-Reactive (Non-Reactive) 02/21/19 08:44 Hep B Core IgM Ab Non-Reactive (Non-Reactive) 02/21/19 08:44 Hep C IgG Ab Non-Reactive (Non-Reactive) 02/21/19 08:44 Virus Source See Below 02/24/19 10:15 Viral Test See Below H 02/24/19 10:15 Virus Analysis Interp See Below 02/24/19 10:15 Blood Type A Positive 02/20/19 20:27 Blood Type Confirm A Positive 02/20/19 20:43 Blood Type Recheck No Previous Record 02/20/19 20:27 Bld Type Recheck Status CABO Indicated 02/20/19 20:27 Antibody Screen NEGATIVE 02/20/19 20:27 Spec Expiration Date 02/23/2019232602/20/19 20:27 Microbiology 02/24/19 20:13 Blood Blood Culture - Preliminary No Growth after 72 hours 02/21/19 11:09 Blood Blood Culture - Final No Growth after 144 hours 02/24/19 09:15 Blood Blood Culture - Preliminary No Growth after 72 hours 02/24/19 10:15 Bronchial Washings - Random Gram Stain - Final 02/24/19 10:15 Bronchial Washings - Random Bronchial Washings Culture - Final Moraxella(branhamella) catarra 02/24/19 10:15 Bronchial Washings - Random Fungal Culture - Preliminary 02/21/19 11:33 Sputum Gram Stain - Final 02/21/19 11:33 Sputum Sputum Culture - Final 02/21/19 04:02 Urine,Voided Urine Culture - Final Assessment and Plan (1) Acute respiratory failure Current Visit: Yes Status: Acute Code(s): J96.00 - ACUTE RESPIRATORY FAILURE, UNSP W HYPOXIA OR HYPERCAPNIA SNOMED Code(s): 40005855 (2) Cardiac arrest Current Visit: Yes Status: Acute Code(s): I46.9 - CARDIAC ARREST, CAUSE UNSPECIFIED SNOMED Code(s): 762174928 (3) Pneumonia Narrative/Plan: this is a 53-year-old male who presented to the hospital with acute ST elevated myocardial infarction, cardiac arrest, acute hypoxic respiratory failure with possible right lower lobe pneumonia, suspected aspiration pneumonia, concern for hypoxic encephalopathy. Patient has had ongoing fevers. He was started on Zosyn and we have added in vancomycin.blood cultures thus far have all been showing no growth. Cultures from BAL are currently in progress. Patient is going on a sedation holiday today. Continue supportive care. Further recommendations as patient progresses. 02/27/2019 pateint has shown some improvement and the Morexella was isolated and now on Rocephin with improvent. Patient relates he thinks he is going home tomorrow, which observer relates is not likely. Current Visit: Yes Status: Acute Code(s): J18.9 - PNEUMONIA, UNSPECIFIED ORGANISM SNOMED Code(s): 129081199
--- NOTE | 2019-02-27 23:00 | P.PN ---
Subjective Progress Note Date: 02/26/19 Principal diagnosis: Cardiac arrest Ventricular tachycardia Cardiac catheterizationstent placement acute hypoxic respiratory failure This is a pleasant 53 years old male with no significant past medical history. Patient could not provide information which were obtained from the medical records and his staff. Documents patient has been diagnosed with pneumonia for about a week, also patient is a cigarette smoker about 2 packs per day and alcohol drinker with both liquor and beer. Patient was getting more dyspneic last night however he was drinking alcohol. Family called 911 . In route patient suffered cardiopulmonary arrest with a showing V. fib, patient underwent resuscitation with CPR and cardiac electric shock as he has been having unresponsive and pulseless. Aspirin 324 mg was provided for the patient. I'll refer to the emergency room patient was still pending. And pulseless, he received more electric shock and CPR, eventually patient and his pills. EKG showed acute STEMI and STEMI alert was called. Patient admitted intubation and mechanical ventilation. He underwent emergent cardiac cath showing total occlusion of the left anterior descending artery and 90% stenosis of the circumflex coronary artery with large dominant right coronary artery Currently patient remains in the ICU, his moderately tachycardic with heart rate 115-120, blood pressure 121/79, breathing rate 18, saturating 96% with FiO2 of 70%, patient is afebrile. Labs showing WBC of 16.8 K, hemoglobin 15.8. Electrolytes are within normal limits and creatinine 1.0, elevated lactic acid 4.6 and 3.0, elevated troponin 146. Elevated liver enzymes with AST 25 and ALT 271. Serum alcohol level was 211. Chest x-ray: Evidence of interstitial face pulmonary edema Patient currently on aspirin 81 mg, Lipitor 80 mg and Brillinta. As well as normal saline 75 mL/h This morning patient have a low-grade temperature of 99.9, patient has a Lizama catheter were don't repeat urinalysis. Patient has NG tube with a few millimeters of dark-colored aspirated fluid, or going to check occult blood in sample. Patient is currently moderately tachycardic around 120 02/22/2019 Patient remains in the ICU, intubated and sedated. His undergoing weaning trial by critical care team. Hemoglobin remained stable despite being started on aspirin and ramipril intact with positive occult blood in the stomach secretions. She will feeding can be started today. Patient continued having fever today at 100. Chest x-ray showed patchy density in the right upper lobe suspicious for pneumonia versus atelectasis. Sputum culture still pending as well as urine culture. pro-calcitonin is ordered. Patient is slightly tachycardic and tachypneic. He is getting Ativan as needed for agitation as pa rt of his CIWA protocol. He got 3 mg of Ativan yesterday and 2 mg overnight. Patient continue on normal saline at 75 mL/h Left showing improvement leukocytosis down to 13.6, worsening liver enzymes, however bilirubin is within normal limits 02/23/19 Patient remains in the ICU, intubated and sedated. His undergoing weaning trial by critical care team for the second day.Hb stable , has leukocytosis of 14.1K compared to 13.6 yesterday , and pt was started on zosyn for possible pna, as chest xray : small right and retrocardiac infilterate. K 3.4 and creatinine 0.9, liver enz improved from 500+ to around 200. pt remains sedated and unresponsive and he might need further neurological evaluation if no awaking, CT brain: no acute event but dense MCA and radiologist recommended to consider contrast study. 02/24/19 Patient remains in the ICU, difficult to arouse, a still dependent on mechanical ventilation.patient underwent bronchoscopy and BALtoday.current specimens were sent for lab. Also rehabilitation teacher following the case closelyand patient is to continue with the same medication, currently he is on Zosyn normal saline at 40 mL/h. Also he is on intravenous Lasix 40 mg. he is Still tachycardic and tachypneic. His W BC is coming down slightly to 12.1 K. Low potassium was replaced.patient is followed closely by critical care team. 02/25/2019 Patient remains in the ICU intubated. He is status post bronchoscopy yesterday and his breathing is easier today, his still tachypneic though at 24, however his less tachycardic down to 96-98 blood pressure 101/60. Patient has persiste nt fever between 100 to 100.8. Another sample of blood culture sent last night, cultures are negative so far. Patient remains on Zosyn. We got to consult infectious disease for help with the antibiotic choice. His WBC is 11.3 02/26/2019 Patient was successfully extubated today. Lethargic but seems to be comfortable. No complaints of chest pain. Does have baseline shortness of Breath. No nausea no vomiting.2-D echocardiogram showed ejection fraction 40-45% and apicaland lateral and inferior wall hypokinesis along withsupplehypokinesis. No significant valvular abnormalities. Chest x-ray showedbilateral infiltrates more on the right. Bronchial cultures are negative so far. Patient is being continued on antibiotics in the form of vancomycin and Zosyn.atient has been afebrile. ID is on board. continued on aspirin, Brilinta, metoprolol. Pulmonary and cardiology is following. Current medications reviewed. Objective - Vital Signs Vital signs: Vital Signs Temp 98.9 F 02/26/19 16:00 Pulse 96 02/26/19 21:00 Resp 22 02/26/19 21:00 BP 121/69 02/25/19 01:00 Pulse Ox 95 02/26/19 21:00 Intake & Output 02/26/19 02/26/19 02/27/19 06:59 18:59 06:59 Intake Total 8033.341 9934 120 Output Total 880 925 425 Balance 891.590 375 -305 Weight 118 kg 118 kg Intake: IV 1080 1080 120 Piperacillin-Tazobactam 3 100 100 .375 gm In Sodium Chloride 0.9% 100 ml @ 25 mls/hr IVPB Q8HR [facility] Rx# :[id number] Sodium Chloride 0.9% 1, 480 480 120 000 ml @ 40 mls/hr IV . Q24H [facility] Rx#:[id number] Vancomycin 2,250 mg In 500 500 Sodium Chloride 0.9% 500 ml 500 ml @ 167 mls/hr IVPB Q12H [facility] Rx#: [id number] Intake, IV Titration 311.590 100 Amount Propofol 1,000 mg In 311.590 100 Empty Bag 1 bag @ Titrate IV .Q0M [facility] Rx#: [id number] Tube Feeding 290 90 Other 90 30 Output: Urine 880 925 425 Other: Voiding Method Indwelling Catheter Indwelling Catheter Indwelling Catheter ABP, PAP, CO, CI - Last Documented Arterial Blood Pressure 122/66 - Exam PHYSICAL EXAMINATION: Patient is lying in the bed comfortably, no acute distress, awake alert and oriented.lethargic and drosy. HEENT: Normocephalic. Neck is supple. Pupils reactive. Nostrils clear. Oral cavity is moist. Ears reveal no drainage. Neck reveals no JVD, carotid bruits, or thyromegaly. CHEST EXAMINATION: Trachea is central. Symmetrical expansion. bilateral scattered rhonchi crackle diminished sounds basilar. CARDIAC: Normal S1, S2 with no gallops. No murmurs ABDOMEN: Soft. Bowel sounds normal. No organomegaly. No abdominal bruits. Extremities: trace edema. No clubbing or cyanosis Neurologically awake, alert, oriented x3 with well-coordinated movements. No focal deficits noted Skin: No rash or skin lesions. Psychiatric: Coperative. Nonsuicidal Musculoskeletal: No joint swelling or deformity. Normal range of motion. - Labs CBC & Chem 7: 02/27/19 04:55 02/27/19 13:15 Labs: Abnormal Lab Results - Last 24 Hours (Table) 02/26/19 02/26/19 02/26/19 Range/Units 04:26 04:26 04:29 WBC 11.1 H (3.8-10.6) k/uL RBC 3.87 L (4.30-5.90) m/uL Hgb 12.1 L (13.0-17.5) gm/dL Hct 35.4 L (39.0-53.0) % ABG pH 7.46 H (7.35-7.45) ABG pCO2 48 H (35-45) mmHg ABG HCO3 34 H (21-25) mmol/L ABG Total CO2 36 H (19-24) mmol/L ABG O2 Saturation 98.1 H (94-97) % Potassium 3.4 L (3.5-5.1) mmol/L Carbon Dioxide 35 H (22-30) mmol/L BUN 36 H (9-20) mg/dL Glucose 132 H (74-99) mg/dL POC Glucose (mg/dL) (75-99) mg/dL 02/26/19 Range/Units 12:00 WBC (3.8-10.6) k/uL RBC (4.30-5.90) m/uL Hgb (13.0-17.5) gm/dL Hct (39.0-53.0) % ABG pH (7.35-7.45) ABG pCO2 (35-45) mmHg ABG HCO3 (21-25) mmol/L ABG Total CO2 (19-24) mmol/L ABG O2 Saturation (94-97) % Potassium (3.5-5.1) mmol/L Carbon Dioxide (22-30) mmol/L BUN (9-20) mg/dL Glucose (74-99) mg/dL POC Glucose (mg/dL) 128 H (75-99) mg/dL Microbiology - Last 24 Hours (Table) 02/21/19 11:09 Blood Culture - Preliminary Blood No Growth after 120 hours 02/24/19 09:15 Blood Culture - Preliminary Blood No Growth after 48 hours 02/24/19 10:15 Gram Stain - Final Bronchial Washings - Random Bronchial Washings Culture - Final Moraxella(branhamella) catarra 02/24/19 20:13 Blood Culture - Preliminary Blood No Growth after 24 hours Assessment and Plan Assessment: -Acute anterior lateral STEMI, status post emergent cardiac cath showing total occlusion of LAD and 90% stenosis of circumflex coronary artery, status post stent placements 3 -Status post cardiac arrest secondary to V. fib, status post successful CPR and electric shock -Possible pneumonia with persistent fever -Acute hypoxic respiratory failure status post intubation and mechanical ventilation -Alcohol abuse and risks of alcohol withdrawal -Right side and retrocardiac pneumonia -Nicotine dependence -Elevated lactic acid. Improvement -Elevated liver enzymes, mostly secondary to shock liver Plan: This is a 53 years old male who presents with cardiac arrest secondary to acute STEMI, status post cardiac cath showing CAD and stent placement. Continue with aspirin, Brillinta and Lipitor. Start the patient on CIWA protocol, continue with thiamine. continue with zosyn and f/u culture results. Consult infectious disease for possible pneumonia versus others and persistent fever. Patient has been afebrile now. Labs and medication were reviewed.. Continue same treatment. Continue with symptomatic treatment. Resume home medication. Monitor lytes and vitals. DVT and GI prophylaxis. Further recommendations of the clinical course of the tricia ent DVT prophylaxis: aspirin and Brillinta GI Prophylaxis: Protonix Prognosis is guarded Time with Patient: Greater than 30
--- NOTE | 2019-02-27 23:05 | P.PN ---
Subjective Progress Note Date: 02/27/19 Principal diagnosis: Cardiac arrest Ventricular tachycardia Cardiac catheterizationstent placement acute hypoxic respiratory failure This is a pleasant 53 years old male with no significant past medical history. Patient could not provide information which were obtained from the medical records and his staff. Documents patient has been diagnosed with pneumonia for about a week, also patient is a cigarette smoker about 2 packs per day and alcohol drinker with both liquor and beer. Patient was getting more dyspneic last night however he was drinking alcohol. Family called 911 . In route patient suffered cardiopulmonary arrest with a showing V. fib, patient underwent resuscitation with CPR and cardiac electric shock as he has been having unresponsive and pulseless. Aspirin 324 mg was provided for the patient. I'll refer to the emergency room patient was still pending. And pulseless, he received more electric shock and CPR, eventually patient and his pills. EKG showed acute STEMI and STEMI alert was called. Patient admitted intubation and mechanical ventilation. He underwent emergent cardiac cath showing total occlusion of the left anterior descending artery and 90% stenosis of the circumflex coronary artery with large dominant right coronary artery Currently patient remains in the ICU, his moderately tachycardic with heart rate 115-120, blood pressure 121/79, breathing rate 18, saturating 96% with FiO2 of 70%, patient is afebrile. Labs showing WBC of 16.8 K, hemoglobin 15.8. Electrolytes are within normal limits and creatinine 1.0, elevated lactic acid 4.6 and 3.0, elevated troponin 146. Elevated liver enzymes with AST 25 and ALT 271. Serum alcohol level was 211. Chest x-ray: Evidence of interstitial face pulmonary edema Patient currently on aspirin 81 mg, Lipitor 80 mg and Brillinta. As well as normal saline 75 mL/h This morning patient have a low-grade temperature of 99.9, patient has a Lizama catheter were don't repeat urinalysis. Patient has NG tube with a few millimeters of dark-colored aspirated fluid, or going to check occult blood in sample. Patient is currently moderately tachycardic around 120 02/22/2019 Patient remains in the ICU, intubated and sedated. His undergoing weaning trial by critical care team. Hemoglobin remained stable despite being started on aspirin and ramipril intact with positive occult blood in the stomach secretions. She will feeding can be started today. Patient continued having fever today at 100. Chest x-ray showed patchy density in the right upper lobe suspicious for pneumonia versus atelectasis. Sputum culture still pending as well as urine culture. pro-calcitonin is ordered. Patient is slightly tachycardic and tachypneic. He is getting Ativan as needed for agitation as pa rt of his CIWA protocol. He got 3 mg of Ativan yesterday and 2 mg overnight. Patient continue on normal saline at 75 mL/h Left showing improvement leukocytosis down to 13.6, worsening liver enzymes, however bilirubin is within normal limits 02/23/19 Patient remains in the ICU, intubated and sedated. His undergoing weaning trial by critical care team for the second day.Hb stable , has leukocytosis of 14.1K compared to 13.6 yesterday , and pt was started on zosyn for possible pna, as chest xray : small right and retrocardiac infilterate. K 3.4 and creatinine 0.9, liver enz improved from 500+ to around 200. pt remains sedated and unresponsive and he might need further neurological evaluation if no awaking, CT brain: no acute event but dense MCA and radiologist recommended to consider contrast study. 02/24/19 Patient remains in the ICU, difficult to arouse, a still dependent on mechanical ventilation.patient underwent bronchoscopy and BALtoday.current specimens were sent for lab. Also staffing program manager following the case closelyand patient is to continue with the same medication, currently he is on Zosyn normal saline at 40 mL/h. Also he is on intravenous Lasix 40 mg. he is Still tachycardic and tachypneic. His W BC is coming down slightly to 12.1 K. Low potassium was replaced.patient is followed closely by critical care team. 02/25/2019 Patient remains in the ICU intubated. He is status post bronchoscopy yesterday and his breathing is easier today, his still tachypneic though at 24, however his less tachycardic down to 96-98 blood pressure 101/60. Patient has persiste nt fever between 100 to 100.8. Another sample of blood culture sent last night, cultures are negative so far. Patient remains on Zosyn. We got to consult infectious disease for help with the antibiotic choice. His WBC is 11.3 02/26/2019 Patient was successfully extubated today. Lethargic but seems to be comfortable. No complaints of chest pain. Does have baseline shortness of Breath. No nausea no vomiting.2-D echocardiogram showed ejection fraction 40-45% and apicaland lateral and inferior wall hypokinesis along withsupplehypokinesis. No significant valvular abnormalities. Chest x-ray showedbilateral infiltrates more on the right. Bronchial cultures are negative so far. Patient is being continued on antibiotics in the form of vancomycin and Zosyn.atient has been afebrile. ID is on board. continued on aspirin, Brilinta, metoprolol. Pulmonary and cardiology is following. 02/27/2019 patient is currently lying in the bed comfortably. More awake and oriented 3. Requiring oxygen with via cannula. Bronchial cultures growing Moraxella catarrhalis. 7 Zosyn and vancomycin has been discontinued and ceftriaxone was started as per ID recommendations Patient has been afebrile. Otherwise patient did have leukocytosis increased to 15.6. Potassium 3.0 which is being replaced. Denied any complaints of chest pain orworsening shortness of breath. Chest x-ray showed new bilateral pulmonary infiltrates possibly component of vascular congestion/edema. of 40-45% with [id number] impairment of the LV, segmental wall motion abnormality is are also present. He is currently afebrile Current medications reviewed. Active Medications Acetaminophen (Tylenol Tab) 650 mg PO Q4HR PRN PRN Reason: Fever and/or Mild Pain Last Admin: 02/24/19 06:34 Dose: 650 mg Documented by: Al Hydroxide/Mg Hydroxide (Maalox) 30 ml PO Q4HR PRN PRN Reason: Heartburn Albuterol/Ipratropium (Duoneb 0.5 Mg-3 Mg/3 Ml Soln) 3 ml INHALATION RT-Q4H [facility] Last Admin: 02/27/19 21:03 Dose: 3 ml Documented by: Albuterol/Ipratropium (Duoneb 0.5 Mg-3 Mg/3 Ml Soln) 3 ml INHALATION RT-Q2H PRN PRN Reason: Shortness Of Breath Or Wheezing Aspirin (Aspirin) 81 mg PO DAILY [facility] Last Admin: 02/27/19 08:01 Dose: 81 mg Documented by: Atorvastatin Calcium (Lipitor) 80 mg PO HS [facility] Last Admin: 02/27/19 21:20 Dose: 80 mg Documented by: Hydromorphone HCl (Dilaudid) 1 mg IVP Q4HR PRN PRN Reason: Pain Last Admin: 02/23/19 06:04 Dose: 1 mg Documented by: Sodium Chloride (Saline 0.9%) 1,000 mls @ 10 mls/hr IV .Q24H [facility] Last Admin: 02/27/19 12:34 Dose: Not Given Documented by: Ceftriaxone Sodium 2 gm/ (Sodium Chloride) 50 mls @ 100 mls/hr IVPB Q24HR [facility] Last Admin: 02/27/19 08:01 Dose: 100 mls/hr Documented by: Metoprolol Tartrate (Lopressor) 12.5 mg PO TID [facility] Last Admin: 02/27/19 21:20 Dose: 12.5 mg Documented by: Miscellaneous Information (Potassium Per Protocol) 1 each MISCELLANE DAILY PRN; Protocol PRN Reason: Per Protocol Naloxone HCl (Narcan) 0.2 mg IV Q2M PRN PRN Reason: Opioid Reversal Pantoprazole Sodium (Protonix) 40 mg PO AC-BID [facility] Last Admin: 02/27/19 17:35 Dose: Not Given Documented by: Thiamine HCl (Vitamin B-1) 100 mg IVP DAILY [facility] Last Admin: 02/27/19 08:13 Dose: 100 mg Documented by: Ticagrelor (Brilinta) 90 mg PO BID [facility] Last Admin: 02/27/19 21:20 Dose: 90 mg Documented by: Objective - Vital Signs Vital signs: Vital Signs Temp 98.6 F 02/27/19 16:00 Pulse 102 H 02/27/19 17:00 Resp 18 02/27/19 17:00 BP 103/65 02/27/19 17:00 Pulse Ox 93 L 02/27/19 17:00 Intake & Output 02/26/19 02/27/19 02/27/19 18:59 06:59 18:59 Intake Total 1300 480 380 Output Total 822 996 3408 Balance 375 -440 -1700 Weight 118 kg 119.3 kg Intake: IV 1080 480 380 Piperacillin-Tazobactam 3 100 100 .375 gm In Sodium Chloride 0.9% 100 ml @ 25 mls/hr IVPB Q8HR [facility] Rx# :[id number] Sodium Chloride 0.9% 1, 480 480 280 000 ml @ 10 mls/hr IV . Q24H [facility] Rx#:[id number] Vancomycin 2,250 mg In 500 Sodium Chloride 0.9% 500 ml 500 ml @ 167 mls/hr IVPB Q12H [facility] Rx#: [id number] Intake, IV Titration 100 Amount Propofol 1,000 mg In 100 Empty Bag 1 bag @ Titrate IV .Q0M [facility] Rx#: [id number] Tube Feeding 90 Other 30 Output: Urine 791 [id number] 3837 Other: Voiding Method Indwelling Catheter Indwelling Catheter Indwelling Catheter ABP, PAP, CO, CI - Last Documented Arterial Blood Pressure 99/69 - Exam PHYSICAL EXAMINATION: Patient is lying in the bed comfortably, no acute distress, awake alert and oriented.lethargic and drosy. HEENT: Normocephalic. Neck is supple. Pupils reactive. Nostrils clear. Oral cavity is moist. Ears reveal no drainage. Neck reveals no JVD, carotid bruits, or thyromegaly. CHEST EXAMINATION: Trachea is central. Symmetrical expansion. bilateral scattered rhonchi crackle diminished sounds basilar. CARDIAC: Normal S1, S2 with no gallops. No murmurs ABDOMEN: Soft. Bowel sounds normal. No organomegaly. No abdominal bruits. Extremities: trace edema. No clubbing or cyanosis Neurologically awake, alert, oriented x3 with well-coordinated movements. No focal deficits noted Skin: No rash or skin lesions. Psychiatric: Coperative. Nonsuicidal Musculoskeletal: No joint swelling or deformity. Normal range of motion. - Labs CBC & Chem 7: 02/27/19 04:55 02/27/19 22:36 Labs: Abnormal Lab Results - Last 24 Hours (Table) 02/24/19 02/27/19 02/27/19 Range/Units 10:15 04:55 04:55 WBC 15.4 H (3.8-10.6) k/uL RBC 3.53 L (4.30-5.90) m/uL Hgb 11.2 L (13.0-17.5) gm/dL Hct 31.8 L (39.0-53.0) % Potassium 3.0 L (3.5-5.1) mmol/L BUN 28 H (9-20) mg/dL Glucose 110 H (74-99) mg/dL AST 87 H (17-59) U/L ALT 72 H (4-49) U/L Total Protein 6.0 L (6.3-8.2) g/dL Albumin 3.2 L (3.5-5.0) g/dL Viral Test See Below H 02/27/19 Range/Units 13:15 WBC (3.8-10.6) k/uL RBC (4.30-5.90) m/uL Hgb (13.0-17.5) gm/dL Hct (39.0-53.0) % Potassium 3.1 L (3.5-5.1) mmol/L BUN (9-20) mg/dL Glucose (74-99) mg/dL AST (17-59) U/L ALT (4-49) U/L Total Protein (6.3-8.2) g/dL Albumin (3.5-5.0) g/dL Viral Test Microbiology - Last 24 Hours (Table) 02/21/19 11:09 Blood Culture - Final Blood No Growth after 144 hours 02/24/19 09:15 Blood Culture - Preliminary Blood No Growth after 72 hours 02/24/19 20:13 Blood Culture - Preliminary Blood No Growth after 48 hours Assessment and Plan Assessment: -Acute anterior lateral STEMI, status post emergent cardiac cath showing total occlusion of LAD and 90% stenosis of circumflex coronary artery, status post stent placements 3 -Status post cardiac arrest secondary to V. fib, status post successful CPR and electric shock -Possible pneumonia with persistent fever -Acute hypoxic respiratory failure status post intubation and mechanical ventilation -Alcohol abuse and risks of alcohol withdrawal -Right side and retrocardiac pneumonia -Nicotine dependence -Elevated lactic acid. Improvement -Elevated liver enzymes, mostly secondary to shock liver -hypokalemia Plan: This is a 53 years old male who presents with cardiac arrest secondary to acute STEMI, status post cardiac cath showing CAD and stent placement. Continue with aspirin, Brillinta and Lipitor. Start the patient on CIWA protocol, continue with thiamine. bronchial cultures showed Moraxella catarrhalis.. Consult infectious disease for possible pneumonia versus others and persistent fever. Patient has been afebrile now. Labs and medication were reviewed.. Continue same treatment. Continue with symptomatic treatment. Resume home medication. Monitor lytes and vitals. DVT and GI prophylaxis. Further recommendations of the clinical course of the patient DVT prophylaxis: aspirin and Brillinta GI Prophylaxis: Protonix Prognosis is guarded Time with Patient: Greater than 30
[2019-02-27] MEDS: ACETAMINOPHEN TAB 325 MG TAB PO PRN (23:41)
[2019-02-28] MEDS ORDERED: POTASSIUM CHLORIDE 10 MEQ in WATER FOR INJECTION 1 100ML.BAG IVPB SCH
[2019-02-28] MEDS: HYDROmorphone 1 MG/ML 1 ML SYRINGE IVP PRN (00:10)
[2019-02-28] MEDS: POTASSIUM CHLORIDE ER 20 MEQ TAB.ER PO SCH ×4 (00:13→11:26)
[2019-02-28] MEDS: IPRATROPIUM-ALBUTEROL 3 ML NEB INHALATION SCH ×6 (03:14→23:39)
[2019-02-28 05:16] LABS: HCT 34.6 % (39.0-53.0); HGB 11.9 gm/dL (13.0-17.5); MCH 31.2 pg (25.0-35.0); MCHC 34.3 g/dL (31.0-37.0); MCV 90.9 fL (80.0-100.0); Mean Platelet Volume 8.6; Platelet Count 201 k/uL (150-450); RBC 3.81 m/uL (4.30-5.90); RDW 12.5 % (11.5-15.5); WBC 12.8 k/uL (3.8-10.6)
[2019-02-28 05:27] LABS: African American GFR (CKD) >90 (>60 ml/min/1.73 sqM); Anion Gap 6 mmol/L; Blood Urea Nitrogen 25 mg/dL (9-20); Calcium 8.8 mg/dL (8.4-10.2); Carbon Dioxide 28 mmol/L (22-30); Chloride 104 mmol/L (98-107); Glucose 103 mg/dL (74-99); Non-African American GFR(CKD) >90 (>60 ml/min/1.73 sqM); Potassium 3.7 mmol/L (3.5-5.1); Sodium 138 mmol/L (137-145)
[2019-02-28] MEDS ORDERED: POTASSIUM CHLORIDE ER 20 MEQ TAB.ER PO SCH (06:00)
[2019-02-28] MEDS: PANTOPRAZOLE 40 MG TABLET PO SCH ×2 (06:27→15:56)
[2019-02-28] MEDS ORDERED: FUROSEMIDE 10 MG/ML 4 ML VIAL IV STA (08:25)
--- NOTE | 2019-02-28 08:33 | P.PN ---
Subjective Progress Note Date: 02/28/19 On 02/28/2019 I'm seeing the patient for a follow-up. Awake and alert. He is having a congested cough. His still short of breath and oxygen at 8 L per minute nasal cannula. He was given a dose of Lasix yesterday 40 mg IV push and diabetes approximately 2700 and is a negative fluid balance of 2 L since yesterday. Chest x-ray still showing pulmonary edema and bilateral pulmonary infiltrates. He remains in pulmonary edema and there may be a component of pneumonia in addition. He is afebrile and he spike a temperature of 11.8 earlier at around midnight.. His bronchial alveolar lavage grew Moraxella catarrhalis and the patient was switched to IV Rocephin. No nausea. No vomiting. His chest is sore his taken Dilaudid for pain control. Rhythm is sinus. He is on oral metoprolol. He is using incentive spirometer. Lizama catheter is in place. Ejection fraction is normal to 40-45% which is consistent with moderate impairment of LV with segmental wall motion abnormalities. No other new complaints for now. No focal neurological deficits. No cardiac arrhythmias. Potassium was replaced and currently is up to 3.7. Objective - Vital Signs Vital signs: Vital Signs Temp 99.9 F H 02/28/19 04:00 Pulse 99 02/28/19 07:00 Resp 37 H 02/28/19 07:00 BP 115/76 02/28/19 07:00 Pulse Ox 94 L 02/28/19 07:00 Intake & Output 02/27/19 02/28/19 02/28/19 18:59 06:59 18:59 Intake Total 380 240 20 Output Total 0 610 50 Balance -1700 -370 -30 Weight 120.6 kg Intake: IV 380 240 20 Piperacillin-Tazobactam 3 100 .375 gm In Sodium Chloride 0.9% 100 ml @ 25 mls/hr IVPB Q8HR [facility] Rx# :[id number] Sodium Chloride 0.9% 1, 280 240 20 000 ml @ 10 mls/hr IV . Q24H [facility] Rx#:[id number] Output: Urine 0 610 50 Other: Voiding Method Indwelling Catheter Indwelling Catheter ABP, PAP, CO, CI - Last Documented Arterial Blood Pressure 99/69 - Exam Gen. appearance, comfortable likely distress, sawake alert and communicating no focal neurological deficit is currently on 8 L of oxygen by nasal cannula Head exam was generally normal. There was no scleral icterus or corneal arcus. Mucous membranes were moist. Neck was supple and without jugular venous distension, thyromegaly, or carotid bruits. Carotids were easily palpable bilaterally. There was no adenopathy. Lungs were clear to auscultation and percussion, and with normal diaphragmatic excursion. No wheezes or rales were noted. Cardiac exam revealed the PMI to be normally situated and sized. The rhythm was regular and no extrasystoles were noted during several minutes of auscultation. The first and second heart sounds were normal and physiologic splitting of the second heart sound was noted. There were no murmurs, rubs, clicks, or gallops. Abdominal exam revealed normal bowel sounds. The abdomen was soft, non-tender, and without masses, organomegaly, or appreciable enlargement of the abdominal aorta. Examination of the extremities revealed easily palpable radial, femoral and pedal pulses. There was no cyanosis, clubbing or edema. Examination of the skin revealed no evidence of significant rashes, suspicious appearing nevi or other concerning lesions. Neurologically his pupils are round 4 mm in size reactive to light. no focal neurological deficit. Motor weakness. - Labs CBC & Chem 7: 02/28/19 04:45 02/28/19 04:41 Labs: Abnormal Lab Results - Last 24 Hours (Table) 02/24/19 02/27/19 02/27/19 Range/Units 10:15 13:15 22:36 WBC (3.8-10.6) k/uL RBC (4.30-5.90) m/uL Hgb (13.0-17.5) gm/dL Hct (39.0-53.0) % Potassium 3.1 L 3.2 L (3.5-5.1) mmol/L BUN (9-20) mg/dL Glucose (74-99) mg/dL Viral Test See Below H 02/28/19 02/28/19 Range/Units 04:41 04:45 WBC 12.8 H (3.8-10.6) k/uL RBC 3.81 L (4.30-5.90) m/uL Hgb 11.9 L (13.0-17.5) gm/dL Hct 34.6 L (39.0-53.0) % Potassium (3.5-5.1) mmol/L BUN 25 H (9-20) mg/dL Glucose 103 H (74-99) mg/dL Viral Test Microbiology - Last 24 Hours (Table) 02/24/19 20:13 Blood Culture - Preliminary Blood No Growth after 72 hours 02/21/19 11:09 Blood Culture - Final Blood No Growth after 144 hours 02/24/19 09:15 Blood Culture - Preliminary Blood No Growth after 72 hours Assessment and Plan Plan: 1 acute STEMI, post emergent cardiac catheterization and insertion of coronary stents including the LAD and the circumflex 2 cardiac arrest, out of hospital secondary to ventricular fibrillation post [place], resuscitated currently intubated on a mechanical ventilator and hemodynamically stable 3 acute hypoxic respiratory failure secondary to above with a suspected right lower lobe pneumonia . The patient was extubated yesterday. His follow-up chest x-ray showed pulmonary edema and he'll be started on IV Lasix. Note that his bronchoscopy showed Moraxella catarrhalis and the patient is currently on IV Rocephin per IDs recommendation. The patient continues to BE short of breath and responded to diuretics yet his oxygenation and his chest x-ray findings has not changed considerably. For that reason, ongoing infection is suspected in addition to a component of CHF. He did spike a low-grade temperature around midnight. 4 right lower lobe pneumonia, likely aspiration 5 fever, source is not clear, could be infectious, could be central fever currently the patient is afebrile and last temperature spike was no midnight yesterday when his temperature was as high as 101.8 6 smoker 7 COPD 8 altered mentation, recovered and the patient is awake and alert 3 Plan Aspirin and Brilinta and metoprolol Echo was noted give the patient another dose of Lasix 40 mg IV push. Replace the potassium The patient IV Solu-Medrol 40 mg every 8 hours Dilaudid for pain control, and start the patient on [place] for pain control and gradually wean off the Dilaudid Wean down the FiO2 as tolerated to maintain a saturation above 90% Provide an incentive spirometer Continue metoprolol Provide diet Monitor the fever pattern Consider broadening antibiotic coverage especially if he continues to spike temperature. Collect another sputum sample if possible. Continue DuoNeb nebulized treatments around the clock Consult physical therapy We'll continue to follow.
--- NOTE | 2019-02-28 08:37 | XR ---
EXAMINATION TYPE: XR chest 1V portable DATE OF EXAM: 02/28/2019 COMPARISON: 02/27/2019 INDICATION: Short of breath TECHNIQUE: Single frontal view of the chest is obtained. FINDINGS: The heart size is normal. The pulmonary vasculature is prominent. Diffuse increased lung markings are present bilaterally. This is worsening from comparison. IMPRESSION: 1. Clinical correlation recommended for pulmonary edema and/or pneumonia.
[2019-02-28] MEDS: methylPREDNISolone SOD SUCCI 40 MG/ML 1 ML VIAL IV SCH ×3 (08:46→23:31)
[2019-02-28] MEDS: HYDROcodone/APAP 5-325MG 1 EACH TAB PO PRN (08:46)
[2019-02-28] MEDS: METOPROLOL TARTRATE 12.5 MG TAB PO SCH ×3 (08:47→20:27)
[2019-02-28] MEDS: ASPIRIN 81 MG PO SCH (08:47)
[2019-02-28] MEDS: TICAGRELOR 90 MG TAB PO SCH ×2 (08:47→20:27)
[2019-02-28] MEDS: THIAMINE 100 MG/ML 2 ML VIAL IVP SCH (08:47)
[2019-02-28] MEDS: SODIUM CHLORIDE 0.9% 1,000 ML IV SCH (11:25)
[2019-02-28 13:00] VITALS: BMI 37.0
--- NOTE | 2019-02-28 14:07 | CDI ---
Documentation Clarification Form Date: 02/28/2019 01:12:02 PM From: Rajani Lockwood RN CCDS Admit Date: 02/20/2019 08:35:00 PM Patient Name: Eriberto Garza Visit Number: [id number] Discharge Date: ATTENTION: The Clinical Documentation Specialists (CDI) and [facility] Coding Staff appreciate your assistance in clarifying documentation. Please respond to the clarification below the line at the bottom and electronically sign. The CDI & [facility] Coding staff will review the response and follow-up if needed. Please note: Queries are made part of the Legal Health Record. If you have any questions, please contact the author of this message via ITS. Dr. Amarilis Lindquist MD Chest x-ray showed patchy density in the right upper lobe suspicious for pneumonia versus atelectasis. Is documented in Internal medicine progress note 02/22/2019 History/Risk Factors: 53-year-old male presents to the ED in Cardiac Arrest. Medical history diagnosed with pneumonia one week before admission. Alcohol Drinker with both liquor and beer. Clinical Indicators: Lab findings: Labs Wbc 16.8; neutrophils 14.3 CXR 02/20 Post Intubation CXR with evident interstitial phase pulmonary edema CXR 02/22 Correlate for pneumonia vs subsegmental atelectatic changes. Vital Signs:02/22/2019 87068 112 99.5 24 94% Mechanical ventilation Other Clinical Indicators: Bronchial alveolar lavage culture Moraxella Catarrhalis Treatment: 02/22/2019 Zosyn ipb; Q 8 hrs D/cd 02/26/2019; 02/25/2019 Vancomycin Ivpb q 12hrs d/cd 02/26/2019 Rocephin Ivpb q 24 hr Consults: ID Dr. Diana Right lower lobe pneumonia, suspected aspiration pneumonia In your professional opinion, can you please clarify the possible pneumonia? * Aspiration Pneumonia Treated * Aspiration Pneumonia Ruled Out, Pneumonia secondary to * Pneumonia Ruled Out * Other, please specify * Unable to determine (Last Revision: June 2017) MTDD
[2019-02-28] MEDS ORDERED: BUDESONIDE 1 MG/2 ML NEBU INHALATION SCH (20:00)
[2019-02-28] MEDS ORDERED: FORMOTEROL FUMARATE 20 MCG/2 ML NEBU INHALATION SCH (20:00)
[2019-02-28] MEDS: ATORVASTATIN 80 MG TAB PO SCH (20:26)
[2019-03-01] MEDS: HYDROcodone/APAP 5-325MG 1 EACH TAB PO PRN ×2 (02:21→17:10)
[2019-03-01] MEDS: IPRATROPIUM-ALBUTEROL 3 ML NEB INHALATION SCH ×5 (03:28→20:24)
[2019-03-01 06:02] LABS: HCT 34.9 % (39.0-53.0); HGB 11.9 gm/dL (13.0-17.5); MCV 91.1 fL (80.0-100.0); Mean Platelet Volume 8.9; Platelet Count 288 k/uL (150-450); RBC 3.83 m/uL (4.30-5.90); RDW 12.7 % (11.5-15.5); WBC 18.6 k/uL (3.8-10.6)
[2019-03-01 06:06] LABS: African American GFR (CKD) >90 (>60 ml/min/1.73 sqM); Anion Gap 8 mmol/L; Blood Urea Nitrogen 32 mg/dL (9-20); Calcium 9.6 mg/dL (8.4-10.2); Carbon Dioxide 25 mmol/L (22-30); Chloride 104 mmol/L (98-107); Glucose 153 mg/dL (74-99); Non-African American GFR(CKD) >90 (>60 ml/min/1.73 sqM); Sodium 137 mmol/L (137-145)
[2019-03-01] MEDS: PANTOPRAZOLE 40 MG TABLET PO SCH ×2 (07:00→17:11)
--- NOTE | 2019-03-01 08:33 | XR ---
EXAMINATION TYPE: XR chest 1V portable DATE OF EXAM: 03/01/2019 CLINICAL HISTORY: Difficulty breathing progress study. TECHNIQUE: Single AP portable upright view of the chest is obtained. COMPARISON: Chest x-ray from one day earlier and older studies. FINDINGS: Persistent bilateral prominent suprahilar reticular and alveolar opacities. No pleural eff usion or pneumothorax is evident bilaterally. Cardiac Silhouette size remains within normal limits. O sseous structures are intact. Overlying EKG leads redemonstrated. IMPRESSION: Overall stable findings, persistent moderate bilateral alveolar and interstitial edema and/or infiltrates. Possible ARDS.
[2019-03-01] MEDS: METOPROLOL TARTRATE 12.5 MG TAB PO SCH ×3 (09:42→20:51)
[2019-03-01] MEDS: ASPIRIN 81 MG PO SCH (09:42)
[2019-03-01] MEDS: methylPREDNISolone SOD SUCCI 40 MG/ML 1 ML VIAL IV SCH ×3 (09:42→23:45)
[2019-03-01] MEDS: TICAGRELOR 90 MG TAB PO SCH ×2 (09:42→20:51)
[2019-03-01] MEDS ORDERED: FUROSEMIDE 10 MG/ML 4 ML VIAL IV STA (10:21)
--- NOTE | 2019-03-01 10:28 | P.PN ---
Subjective Progress Note Date: 03/01/19 On 03/01/2019 Mr. Garza is being seen in follow-up. Clinically is feeling better. His oxidation is improved. Currently is on 2 L of oxygen by nasal cannula. He got Lasix 40 mg IV and the net fluid balance is negative in the order of 2 L yesterday and another liter this morning. His chest x-ray showing improvement in the bilateral pulmonary infiltrates. He is not having any worsening shortness of breath. No fever or chills. His white cell count is at 18.6. Hemoglobin stable at 11.5. Renal function stable. No other issues for now. He is on IV Rocephin regarding Moraxella catarrhalis in his sputum. He is going to be transferred to a telemetry unit. Objective - Vital Signs Vital signs: Vital Signs Temp 97.8 F 03/01/19 09:00 Pulse 90 03/01/19 09:00 Resp 12 03/01/19 09:00 BP 109/67 03/01/19 09:00 Pulse Ox 94 L 03/01/19 09:00 Intake & Output 02/28/19 03/01/19 03/01/19 18:59 06:59 18:59 Intake Total 190 1080 550 Output Total 1650 750 450 Balance -1460 330 100 Weight 120.6 kg 114.1 kg Intake: IV 190 120 30 Sodium Chloride 0.9% 1, 190 120 30 000 ml @ 10 mls/hr IV . Q24H [facility] Rx#:[id number] Oral 960 520 Output: Urine 1650 750 450 Other: Voiding Method Urinal Urinal Urinal # Voids 1 1 # Bowel Movements 1 ABP, PAP, CO, CI - Last Documented Arterial Blood Pressure 99/69 - Exam Gen. appearance, comfortable likely distress, sawake alert and communicating no focal neurological deficit is currently on 8 L of oxygen by nasal cannula Head exam was generally normal. There was no scleral icterus or corneal arcus. Mucous membranes were moist. Neck was supple and without jugular venous distension, thyromegaly, or carotid bruits. Carotids were easily palpable bilaterally. There was no adenopathy. Lungs were clear to auscultation and percussion, and with normal diaphragmatic excursion. No wheezes or rales were noted. Cardiac exam revealed the PMI to be normally situated and sized. The rhythm was regular and no extrasystoles were noted during several minutes of auscultation. The first and second heart sounds were normal and physiologic splitting of the second heart sound was noted. There were no murmurs, rubs, clicks, or gallops. Abdominal exam revealed normal bowel sounds. The abdomen was soft, non-tender, and without masses, organomegaly, or appreciable enlargement of the abdominal aorta. Examination of the extremities revealed easily palpable radial, femoral and pedal pulses. There was no cyanosis, clubbing or edema. Examination of the skin revealed no evidence of significant rashes, suspicious appearing nevi or other concerning lesions. Neurologically his pupils are round 4 mm in size reactive to light. no focal neurological deficit. Motor weakness. - Labs CBC & Chem 7: 03/01/19 05:22 03/01/19 05:22 Labs: Abnormal Lab Results - Last 24 Hours (Table) 02/28/19 03/01/19 03/01/19 Range/Units 10:00 05:22 05:22 WBC 18.6 H (3.8-10.6) k/uL RBC 3.83 L (4.30-5.90) m/uL Hgb 11.9 L (13.0-17.5) gm/dL Hct 34.9 L (39.0-53.0) % Potassium 3.4 L (3.5-5.1) mmol/L BUN 32 H (9-20) mg/dL Glucose 153 H (74-99) mg/dL Microbiology - Last 24 Hours (Table) 03/01/19 00:30 Gram Stain - Preliminary Sputum Sputum Culture - Preliminary 02/24/19 20:13 Blood Culture - Preliminary Blood No Growth after 96 hours 02/24/19 09:15 Blood Culture - Preliminary Blood No Growth after 96 hours Assessment and Plan Plan: 1 acute STEMI, post emergent cardiac catheterization and insertion of coronary stents including the LAD and the circumflex 2 cardiac arrest, out of hospital secondary to ventricular fibrillation post [place], resuscitated currently intubated on a mechanical ventilator and hemodynamically stable 3 acute hypoxic respiratory failure secondary to above with a suspected right lower lobe pneumonia . The patient was extubated yesterday. His follow-up chest x-ray showed pulmonary edema and he'll be started on IV Lasix. Note that his bronchoscopy showed Moraxella catarrhalis and the patient is currently on IV Rocephin per IDs recommendation. tthe patient got diuresed with IV Lasix and he is a negative fluid balance. The chest x-ray is improving. oxygenation has also improved and the patient is currently on 2 L of oxygen by nasal cannula. 4 right lower lobe pneumonia, likely aspiration, subsequent the patient about diffuse bilateral pulmonary infiltrates which improved on follow-up chest x-ray. 5 fever, source is not clear, currently afebrile 6 smoker 7 COPD 8 altered mentation, recovered and the patient is awake and alert 3 Plan Aspirin and Brilinta and metoprolol Echo was noted give the patient another dose of Lasix 40 mg IV push. Replace the potassium, put the patient on Lasix 40 mg by mouth on a daily basis after his IV dose today. The patient IV Solu-Medrol 40 mg every 8 hoursI will continue the IV Solu Medrol for another 24 hours. Dilaudid for pain control, and start the patient on [place] for pain control and gradually wean off the Dilaudid Wean down the FiO2 as tolerated to maintain a saturation above 90% Provide an incentive spirometer Continue metoprolol Provide diet Monitor the fever pattern clinically improved. Currently on 2 L of oxygen by nasal cannula. He'll be chance for to telemetry for another 24 hours of monitoring. Encourage mobility and ambulation.
[2019-03-01] MEDS: FUROSEMIDE 10 MG/ML 4 ML VIAL IV SCH (11:14)
[2019-03-01] MEDS: SODIUM CHLORIDE 0.9% 1,000 ML IV SCH (11:20)
[2019-03-01 16:59] LABS: Glucose,Whole Blood 136 mg/dL (75-99)
[2019-03-01] MEDS: ATORVASTATIN 80 MG TAB PO SCH (20:51)
[2019-03-01] MEDS: HYDROmorphone 1 MG/ML 1 ML SYRINGE IVP PRN (21:48)
[2019-03-02] MEDS: IPRATROPIUM-ALBUTEROL 3 ML NEB INHALATION SCH ×7 (01:21→23:23)
[2019-03-02] MEDS: HYDROcodone/APAP 5-325MG 1 EACH TAB PO PRN ×2 (06:42→16:44)
[2019-03-02] MEDS: PANTOPRAZOLE 40 MG TABLET PO SCH (06:42)
[2019-03-02] MEDS: TICAGRELOR 90 MG TAB PO SCH ×2 (08:25→20:30)
[2019-03-02] MEDS: ASPIRIN 81 MG PO SCH (08:26)
[2019-03-02] MEDS: methylPREDNISolone SOD SUCCI 40 MG/ML 1 ML VIAL IV SCH ×2 (08:26→16:45)
[2019-03-02] MEDS: METOPROLOL TARTRATE 12.5 MG TAB PO SCH ×2 (08:26→16:44)
[2019-03-02] MEDS: FUROSEMIDE 10 MG/ML 4 ML VIAL IV SCH ×2 (08:26→16:45)
--- NOTE | 2019-03-02 08:56 | XR ---
EXAMINATION TYPE: XR chest 1V portable DATE OF EXAM: 03/02/2019 COMPARISON: 03/01/2019 HISTORY: Shortness of breath FINDINGS: Noted is pulmonary venous congestion with scattered infiltrates. There is also cardiomegaly and small effusions. IMPRESSION: Findings compatible with congestive failure. Infiltrates of other etiology are not excluded. Clinical correlation and progress studies are recommended.
[2019-03-02] MEDS: SODIUM CHLORIDE 0.9% 1,000 ML IV SCH (11:57)
[2019-03-02 12:35] LABS: Basophils # (A) 0.1 k/uL (0-0.2); Basophils % (A) 0 %; Eosinophils % (A) 0 %; HCT 34.6 % (39.0-53.0); HGB 11.7 gm/dL (13.0-17.5); Lymphocytes # (A) 1.4 k/uL (1.0-4.8); Lymphocytes % (A) 7 %; MCH 30.7 pg (25.0-35.0); MCHC 33.9 g/dL (31.0-37.0); MCV 90.4 fL (80.0-100.0); Mean Platelet Volume 9.3; Monocytes # (A) 1.2 k/uL (0-1.0); Monocytes % (A) 6 %; Neutrophils % (A) 86 %; Platelet Count 356 k/uL (150-450); RBC 3.83 m/uL (4.30-5.90); RDW 12.9 % (11.5-15.5); WBC 22.1 k/uL (3.8-10.6)
--- NOTE | 2019-03-02 12:55 | P.PN ---
Subjective Progress Note Date: 03/02/19 this is a 53-year-old gentleman who presented to the hospital with an out of hospital cardiopulmonary arrest, initially presented with ventricular fibrillation, status post ablation 2 with prolonged resuscitation and eventual return of spontaneous circulation. Patient was taken to the cardiac c atheterization lab on arrival and underwent stenting of the LAD 2 as well as stenting of the circumflex. Patient has known history of nicotine dependence and chronic alcohol abuse.patient had a chest x-ray performed this morning, suggesting congestive heart failure.we will increase his dose of IV Lasix to 40 mg IV twice a day.blood pressure this morning 122/60 with a heart rate in the 60s, 95% on room air.blood cell count 22.1, hemoglobin 11.7, platelet count 356. Objective - Vital Signs Vital signs: Vital Signs Temp 98.3 F 03/02/19 04:15 Pulse 92 03/02/19 12:09 Resp 16 03/02/19 12:00 BP 123/61 03/02/19 12:00 Pulse Ox 95 03/02/19 12:00 Intake & Output 03/01/19 03/02/19 03/02/19 18:59 06:59 18:59 Intake Total 810 240 Output Total 875 750 Balance -65 -750 240 Weight 116.4 kg Intake: IV 50 Sodium Chloride 0.9% 1, 50 000 ml @ 10 mls/hr IV . Q24H [facility] Rx#:[id number] Oral 760 240 Output: Urine 875 750 Other: Voiding Method Urinal Urinal Urinal # Voids 1 1 ABP, PAP, CO, CI - Last Documented Arterial Blood Pressure 99/69 - Exam Gen. appearance, comfortable likely distress, sawake alert and communicating no focal neurological deficit is currently on 8 L of oxygen by nasal cannula Head exam was generally normal. There was no scleral icterus or corneal arcus. Mucous membranes were moist. Neck was supple and without jugular venous distension, thyromegaly, or carotid bruits. Carotids were easily palpable bilaterally. There was no adenopathy. Lungs reveal diminished air entry to bilateral bases, normal diaphragmatic excursion. No wheezes or rales were noted. Cardiac exam revealed the PMI to be normally situated and sized. The rhythm was regular and no extrasystoles were noted during several minutes of auscultation. The first and second heart sounds were normal and physiologic splitting of the second heart sound was noted. There were no murmurs, rubs, clicks, or gallops. Abdominal exam revealed normal bowel sounds. The abdomen was soft, non-tender, and without masses, organomegaly, or appreciable enlargement of the abdominal aorta. Examination of the extremities revealed easily palpable radial, femoral and pedal pulses. There was no cyanosis, clubbing or edema. Examination of the skin revealed no evidence of significant rashes, suspicious appearing nevi or other concerning lesions. Neurologically his pupils are round 4 mm in size reactive to light. no focal neurological deficit. Motor weakness. - Labs CBC & Chem 7: 03/02/19 12:10 03/01/19 05:22 Labs: Abnormal Lab Results - Last 24 Hours (Table) 03/01/19 03/02/19 Range/Units 16:54 12:10 WBC 22.1 H (3.8-10.6) k/uL RBC 3.83 L (4.30-5.90) m/uL Hgb 11.7 L (13.0-17.5) gm/dL Hct 34.6 L (39.0-53.0) % Neutrophils # 19.0 H (1.3-7.7) k/uL Monocytes # 1.2 H (0-1.0) k/uL POC Glucose (mg/dL) 136 H (75-99) mg/dL Microbiology - Last 24 Hours (Table) 02/24/19 09:15 Blood Culture - Final Blood No Growth after 144 hours 02/24/19 10:15 Fungal Culture - Preliminary Bronchial Washings - Random [place] albicans 03/01/19 00:30 Gram Stain - Preliminary Sputum Sputum Culture - Preliminary 02/24/19 20:13 Blood Culture - Preliminary Blood No Growth after 120 hours Assessment and Plan Plan: assessment and Plan: 1 acute STEMI, post emergent cardiac catheterization with stenting of the LAD and circumflex 2 cardiac arrest, out of hospital secondary to ventricular fibrillation post [place], resuscitated currently intubated on a mechanical ventilator and hemodynamically stable 3 acute hypoxic respiratory failure secondary to above with a suspected right lower lobe pneumonia . 4 right lower lobe pneumonia, likely aspiration, subsequent the patient about diffuse bilateral pulmonary infiltrates which improved on follow-up chest x-ray. 5 fever, source is not clear, currently afebrile 6 smoker 7 COPD Plan Chest x-ray from today showed continued congestive heart failure, we will increase the dose of IV Lasix to 40 mg IV twice a day. Continue to monitor the intake and output along with daily weights and daily lytes BUN and creatinine. DNP note has been reviewed, I agree with a documented findings and plan of care. Patient was seen and examined.
[2019-03-02] MEDS ORDERED: FUROSEMIDE 10 MG/ML 4 ML VIAL IV STA (14:07)
--- NOTE | 2019-03-02 14:10 | P.PN ---
Subjective Progress Note Date: 03/02/19 on 03/02/2019, patient is being seen for a follow-up. Currently is on the cardiac floor. Doing well. He is taken off the oxygen. Chest x-ray still showing bilateral pulmonary infiltrates. Clinically however is improving. He was diuresing well with IV Lasix. He is on IV Rocephin. He is on IV Solu-M edrol and DuoNeb nebulized treatments around the clock. Cough and congestion subsided. No major swelling lower extremities. White cell count is up to 22. He has no fever. No chills. No other complaints otherwise. He remains on IV Lasix 40 mg every 12 hours. Objective - Vital Signs Vital signs: Vital Signs Temp 98.3 F 03/02/19 04:15 Pulse 92 03/02/19 12:09 Resp 16 03/02/19 12:00 BP 123/61 03/02/19 12:00 Pulse Ox 95 03/02/19 12:00 Intake & Output 03/01/19 03/02/19 03/02/19 18:59 06:59 18:59 Intake Total 810 240 Output Total 875 750 Balance -65 -750 240 Weight 116.4 kg Intake: IV 50 Sodium Chloride 0.9% 1, 50 000 ml @ 10 mls/hr IV . Q24H [facility] Rx#:[id number] Oral 760 240 Output: Urine 875 750 Other: Voiding Method Urinal Urinal Urinal # Voids 1 1 ABP, PAP, CO, CI - Last Documented Arterial Blood Pressure 99/69 - Exam Gen. appearance, comfortable Head exam was generally normal. There was no scleral icterus or corneal arcus. Mucous membranes were moist. Neck was supple and without jugular venous distension, thyromegaly, or carotid bruits. Carotids were easily palpable bilaterally. There was no adenopathy. Lungs were clear to auscultation and percussion, and with normal diaphragmatic excursion. No wheezes or rales were noted. Cardiac exam revealed the PMI to be normally situated and sized. The rhythm was regular and no extrasystoles were noted during several minutes of auscultation. The first and second heart sounds were normal and physiologic splitting of the second heart sound was noted. There were no murmurs, rubs, clicks, or gallops. Abdominal exam revealed normal bowel sounds. The abdomen was soft, non-tender, and without masses, organomegaly, or appreciable enlargement of the abdominal aorta. Examination of the extremities revealed easily palpable radial, femoral and p edal pulses. There was no cyanosis, clubbing or edema. Examination of the skin revealed no evidence of significant rashes, suspicious appearing nevi or other concerning lesions. Neurologically his pupils are round 4 mm in size reactive to light. no focal neurological deficit. Motor weakness. - Labs CBC & Chem 7: 03/02/19 12:10 03/01/19 05:22 Labs: Abnormal Lab Results - Last 24 Hours (Table) 03/01/19 03/02/19 Range/Units 16:54 12:10 WBC 22.1 H (3.8-10.6) k/uL RBC 3.83 L (4.30-5.90) m/uL Hgb 11.7 L (13.0-17.5) gm/dL Hct 34.6 L (39.0-53.0) % Neutrophils # 19.0 H (1.3-7.7) k/uL Monocytes # 1.2 H (0-1.0) k/uL POC Glucose (mg/dL) 136 H (75-99) mg/dL Microbiology - Last 24 Hours (Table) 03/01/19 00:30 Gram Stain - Preliminary Sputum Sputum Culture - Preliminary 02/24/19 09:15 Blood Culture - Final Blood No Growth after 144 hours 02/24/19 10:15 Fungal Culture - Preliminary Bronchial Washings - Random Lilliana albicans 02/24/19 20:13 Blood Culture - Preliminary Blood No Growth after 120 hours Assessment and Plan Plan: 1 acute STEMI, post emergent cardiac catheterization and insertion of coronary stents including the LAD and the circumflex 2 cardiac arrest, out of hospital secondary to ventricular fibrillation post MT, resuscitated currently intubated on a mechanical ventilator and hemodynamically stable 3 acute hypoxic respiratory failure secondary to above with a suspected right lower lobe pneumonia . The patient was extubated yesterday. His follow-up [facility] x-ray showed pulmonary edema and he'll be started on IV Lasix. Note that his bronchoscopy showed Moraxella catarrhalis and the patient is currently on IV Rocephin per IDs recommendation. tthe patient got diuresed with IV Lasix and he is a negative fluid balance. The chest x-ray is improving. the patient continues to improve. The chest x-ray has not. Completely yet. Continue the same treatment for another 24 hours. 4 right lower lobe pneumonia, likely aspiration, subsequent the patient about diffuse bilateral pulmonary infiltrates which improved on follow-up chest x-ray. 5 fever, source is not clear, currently afebrile 6 smoker 7 COPD 8 altered mentation, recovered and the patient is awake and alert 3 Plan Aspirin and Brilinta and metoprolol Echo was noted continue IV Lasix Continue IV Solu-Medrol Continue IV Rocephin Repeat chest x-ray in the morning Possible discharge home if his x-ray shows improvement the patient clinically is inactive and stable. We'll continue to follow. Continue metoprolol Provide diet Monitor the fever pattern, the white cell count is slightly elevated and this needs to be monitored
[2019-03-02] MEDS: ATORVASTATIN 80 MG TAB PO SCH (20:29)
[2019-03-02] MEDS: ACETAMINOPHEN TAB 325 MG TAB PO PRN (20:30)
--- NOTE | 2019-03-02 23:13 | P.PN ---
Subjective Progress Note Date: 03/02/19 this is a 53-year-old male presented to the hospital on February 20 by EMS. He was initially picked up for transport due to dyspnea and was diagnosed with pneumonia 1 week ago. He does have a heavy smoking history at 2 packs per day and heavy drinking history at 3-5ths of liquor and multiple cases of beer per week. En route to the hospital, patient suffered a cardiac pulmonary arrest , CPR was started, patient was found to be in ventricular fibrillation and was shocked once with no success. He was pulseless and CPR was continued. Upon arrival to the ER, he was in V. fib and was defibrillated at 200 J and regained pulses. Patient was ruled in for ST elevated myocardial infarction and cardiology was contacted. Patient was intubated and placed on mechanical ventilation while in the emergency center. White count was initially 25.6. Serum alcohol 211, lactic acid 12.8. liver function tests were elevated and acute hepatitis panel was negative. Initial urinalysis bloody, repeat clear without signs of infection. Patient underwent heart catheterization with Dr. Ferguson finding totally occluded proximal LAD, 90% stenosis in the circumflex. He then underwent PTCA and stenting of the LAD and proximal circumflex with Dr. SIRISHA James. Patient remains intubated and on mechanical ventilation and has failed weaning attempts. He underwent bronchoscopy and BAL on February [address] Francine carney. [facility] washings culture in progress. Blood cultures all been negative. On February 22, patient was started on Zosyn for concern for aspiration pneumonia. Patient has been running a fever starting February 22, temperature maximum last 24 hours is 101.2. ET tube was also changed on February 24. Vancomycin added yesterday by ID. He has had improvement of leukocytosis down to 11.1. Darren johnson to the patient's nurse, patient was following commands last week but became very combative. Most likely patient suffered from alcohol withdrawal. He is currently on the Sewall protocol and on a nicotine patch as well. He is opening in his eyes to command and moving fingers to commands. Patient is tolerating tube feedings, no diarrhea, no wounds or skin breakdown. Most recent chest x- ray reveals right basilar atelectasis. Pulmonary venous engorgement without heart failure. 02/27/2019 patient is more awake and feels better,less SOB still has O2 on with adequate O2 saturation. 03/02/2019 the patient is doing well, sitting upright in the chair, not on oxygen therapy and doing well out of the intensive care unit. In general he has had ongoing improvements in his been up and ambulating today. He is eating well without nausea or emesis. Objective - Vital Signs Vital signs: Vital Signs Temp 98.0 F 03/02/19 20:00 Pulse 84 03/02/19 20:05 Resp 16 03/02/19 20:05 BP 106/66 03/02/19 20:00 Pulse Ox 96 03/02/19 20:00 Intake & Output 03/02/19 03/02/19 03/03/19 06:59 18:59 06:59 Intake Total 834 Output Total 750 Balance -750 834 Weight 116.4 kg Intake: Oral 834 Output: Urine 750 Other: Voiding Method Urinal Urinal Urinal # Voids 1 1 ABP, PAP, CO, CI - Last Documented Arterial Blood Pressure 99/69 - Exam Gen: This is a 53-year-old male. Out of ICU, sitting upright in a chair visiting with his family as the observer enters. He is distinctly comfortable HEENT: Head is atraumatic, normocephalic. Pupils equal, round. Sclerae is anicteric.oral mucous membranes are moist. ET and orogastric tube in place. NECK: Supple. No JVD. No lymphadenopathy. No thyromegaly. LUNGS: Clear to auscultation. No wheezes or rhonchi. No intercostal retractions. HEART: Regular rate and rhythm. No murmur. ABDOMEN: Soft. Bowel sounds are present. No masses. No tenderness. EXTREMITIES: No pedal edema. No calf tenderness.dorsalis pedis +2 bilaterally. No rashes noted. NEUROLOGICAL: Patient is awake, alert and interactive, voice is stronger and content is improved. - Labs CBC & Chem 7: 03/02/19 12:10 03/01/19 05:22 Labs: Abnormal Lab Results - Last 24 Hours (Table) 03/02/19 Range/Units 12:10 WBC 22.1 H (3.8-10.6) k/uL RBC 3.83 L (4.30-5.90) m/uL Hgb 11.7 L (13.0-17.5) gm/dL Hct 34.6 L (39.0-53.0) % Neutrophils # 19.0 H (1.3-7.7) k/uL Monocytes # 1.2 H (0-1.0) k/uL Microbiology - Last 24 Hours (Table) 02/24/19 20:13 Blood Culture - Final Blood No Growth after 144 hours 03/01/19 00:30 Gram Stain - Preliminary Sputum Sputum Culture - Preliminary 02/24/19 09:15 Blood Culture - Final Blood No Growth after 144 hours 02/24/19 10:15 Fungal Culture - Preliminary Bronchial Washings - Random Lilliana albicans Laboratory Results WBC 22.1 k/uL (3.8-10.6) H 03/02/19 12:10 RBC 3.83 m/uL (4.30-5.90) L 03/02/19 12:10 Hgb 11.7 gm/dL (13.0-17.5) L 03/02/19 12:10 Hct 34.6 % (39.0-53.0) L 03/02/19 12:10 MCV 90.4 fL (80.0-100.0) 03/02/19 12:10 MCH 30.7 pg (25.0-35.0) 03/02/19 12:10 MCHC 33.9 g/dL (31.0-37.0) 03/02/19 12:10 RDW 12.9 % (11.5-15.5) 03/02/19 12:10 Plt Count 356 k/uL (150-450) 03/02/19 12:10 Neutrophils % 86 % 03/02/19 12:10 Neutrophils % (Manual) 53 % 02/20/19 20:27 Band Neutrophils % 1 % 02/20/19 20:27 Lymphocytes % 7 % 03/02/19 12:10 Lymphocytes % (Manual) 43 % 02/20/19 20:27 Monocytes % 6 % 03/02/19 12:10 Eosinophils % 0 % 03/02/19 12:10 Eosinophils % (Manual) 3 % 02/20/19 20:27 Basophils % 0 % 03/02/19 12:10 Neutrophils # 19.0 k/uL (1.3-7.7) H 03/02/19 12:10 Neutrophils # (Manual) 13.80 k/uL (1.3-7.7) H 02/20/19 20:27 Lymphocytes # 1.4 k/uL (1.0-4.8) 03/02/19 12:10 Lymphocytes # (Manual) 11.01 k/uL (1.0-4.8) H 02/20/19 20:27 Monocytes # 1.2 k/uL (0-1.0) H 03/02/19 12:10 Eosinophils # 0.0 k/uL (0-0.7) 03/02/19 12:10 Eosinophils # (Manual) 0.77 k/uL (0-0.7) H 02/20/19 20:27 Basophils # 0.1 k/uL (0-0.2) 03/02/19 12:10 Nucleated RBCs 0 /100 WBC (0-0) 02/20/19 20:27 Manual Slide Review Performed 02/20/19 20: Toxic Granulation Present 02/20/19 20: RBC Morphology Normal 02/20/19 20: PT 10.2 sec (9.0-12.0) 02/20/19 20: INR 0.9 (<1.2) 02/20/19 20:27 APTT 24.5 sec (22.0-30.0) 02/20/19 20:27 Sample Site robby 02/26/19 04:29 ABG pH 7.46 (7.35-7.45) H 02/26/19 04:29 ABG pCO2 48 mmHg (35-45) H 02/26/19 04:29 ABG pO2 99 mmHg (83-108) 02/26/19 04:29 ABG HCO3 34 mmol/L (21-25) H 02/26/19 04:29 ABG Total CO2 36 mmol/L (19-24) H 02/26/19 04:29 ABG O2 Saturation 98.1 % (94-97) H 02/26/19 04:29 ABG Base Excess 10.3 mmol/L 02/26/19 04:29 Dipak Test Yes 02/26/19 04:29 FiO2 50 % 02/26/19 04:29 Sodium 137 mmol/L (137-145) 03/01/19 05:22 Potassium 4.0 mmol/L (3.5-5.1) 03/01/19 05:22 Chloride 104 mmol/L (98-107) 03/01/19 05:22 Carbon Dioxide 25 mmol/L (22-30) 03/01/19 05:22 Anion Gap 8 mmol/L 03/01/19 05:22 BUN 32 mg/dL (9-20) H 03/01/19 05:22 Creatinine 0.73 mg/dL (0.66-1.25) 03/01/19 05:22 Est GFR (CKD-EPI)AfAm >90 (>60 ml/min/1.73 sqM) 03/01/19 05:22 Est GFR (CKD-EPI)NonAf >90 (>60 ml/min/1.73 sqM) 03/01/19 05:22 Glucose 153 mg/dL (74-99) H 03/01/19 05:22 POC Glucose (mg/dL) 136 mg/dL (75-99) H 03/01/19 16:54 POC Glu S[employer] ID Lucia Mcmullen 03/01/19 16:54 Lactic Ac Sepsis Rflx Y 02/21/19 10:12 Plasma Lactic Acid Cristopher 2.0 mmol/L (0.7-2.0) 02/21/19 14:12 Calcium 9.6 mg/dL (8.4-10.2) 03/01/19 05:22 Phosphorus 2.9 mg/dL (2.5-4.5) 02/27/19 04:55 Magnesium 2.0 mg/dL (1.6-2.3) 02/27/19 04:55 Total Bilirubin 0.9 mg/dL (0.2-1.3) 02/27/19 04:55 Conjugated Bilirubin 0.0 mg/dL (0.0-0.3) 02/24/19 05:20 Unconjugated Bilirubin 0.4 mg/dL (0.0-1.1) 02/24/19 05:20 Delta Bilirubin 0.5 mg/dL (0.0-0.2) H 02/24/19 05:20 AST 87 U/L (17-59) H 02/27/19 04:55 ALT 72 U/L (4-49) H 02/27/19 04:55 Alkaline Phosphatase 44 U/L (38-126) 02/27/19 04:55 Total Creatine Kinase 375 U/L (55-170) H 02/20/19 20:27 CK-MB (CK-2) 1.7 ng/mL (0.0-2.4) 02/20/19 20:27 CK-MB (CK-2) Rel Index 0.5 02/20/19 20:27 Troponin I 146.000 ng/mL (0.000-0.034) H* 02/21/19 04:28 Total Protein 6.0 g/dL (6.3-8.2) L 02/27/19 04:55 Albumin 3.2 g/dL (3.5-5.0) L 02/27/19 04:55 Amylase 63 U/L (30-110) 02/20/19 20:27 Lipase 244 U/L (23-300) 02/20/19 20:27 Procalcitonin 0.22 ng/mL (0.02-0.09) H 02/22/19 05:26 Urine Color Light Yellow 02/24/19 09:24 Urine Appearance Clear (Clear) 02/24/19 09:24 Urine pH 7.0 (5.0-8.0) 02/24/19 09:24 Ur Specific [place] 1.006 (1.001-1.035) 02/24/19 09:24 Urine Protein Negative (Negative) 02/24/19 09:24 Urine Glucose (UA) Negative (Negative) 02/24/19 09:24 Urine Ketones Negative (Negative) 02/24/19 09:24 Urine Blood Negative (Negative) 02/24/19 09:24 Urine Nitrite Negative (Negative) 02/24/19 09:24 Urine Bilirubin Negative (Negative) 02/24/19 09:24 Urine Urobilinogen <2.0 mg/dL (<2.0) 02/24/19 09:24 Ur Leukocyte Esterase Negative (Negative) 02/24/19 09:24 Urine RBC 44 /hpf (0-5) H 02/21/19 04:02 Urine WBC 25 /hpf (0-5) H 02/21/19 04:02 Urine WBC Clumps Occasional /hpf (None) H 02/21/19 04:02 Ur Squamous Epith Cells 2 /hpf (0-4) 02/21/19 04:02 Fluid Source Bronchial Wash 02/24/19 10:15 Fluid Color Red 02/24/19 10:15 Fluid Appearance Cloudy 02/24/19 10:15 Fluid RBC 5489 /uL 02/24/19 10:15 Fluid Nucleated Cells 1844 /uL 02/24/19 10:15 Fluid Polynuclear WBCs 3 % 02/24/19 10:15 Fluid Mononuclear WBCs 97 % 02/24/19 10:15 Gastric Occult Blood Positive (Negative) 02/21/19 08:20 Vancomycin Trough <5.0 ug/mL 02/27/19 13:15 Serum Alcohol 211 mg/dL H* 02/20/19 20:27 Hepatitis A IgM Ab Non-Reactive (Non-Reactive) 02/21/19 08:44 Hep Bs Antigen Non-Reactive (Non-Reactive) 02/21/19 08:44 Hep B Core IgM Ab Non-Reactive (Non-Reactive) 02/21/19 08:44 Hep C IgG Ab Non-Reactive (Non-Reactive) 02/21/19 08:44 Virus Source See Below 02/24/19 10:15 Viral Test See Below H 02/24/19 10:15 Virus Analysis Interp See Below 02/24/19 10:15 Blood Type A Positive 02/20/19 20:27 Blood Type Confirm A Positive 02/20/19 20:43 Blood Type Recheck No Previous Record 02/20/19 20:27 Bld Type Recheck Status CABO Indicated 02/20/19 20:27 Antibody Screen NEGATIVE 02/20/19 20:27 Spec Expiration Date 02/23/2019232602/20/19 20:27 Microbiology 02/24/19 20:13 Blood Blood Culture - Final No Growth after 144 hours 03/01/19 00:30 Sputum Gram Stain - Preliminary 03/01/19 00:30 Sputum Sputum Culture - Preliminary 02/24/19 09:15 Blood Blood Culture - Final No Growth after 144 hours 02/24/19 10:15 Bronchial Washings - Random Fungal Culture - Preliminary Lilliana albicans 02/21/19 11:09 Blood Blood Culture - Final No Growth after 144 hours 02/24/19 10:15 Bronchial Washings - Random Gram Stain - Final 02/24/19 10:15 Bronchial Washings - Random Bronchial Washings Culture - Final Moraxella(branhamella) catarra 02/21/19 11:33 Sputum Gram Stain - Final 02/21/19 11:33 Sputum Sputum Culture - Final 02/21/19 04:02 Urine,Voided Urine Culture - Final Assessment and Plan (1) Acute respiratory failure Current Visit: Yes Status: Acute Code(s): J96.00 - ACUTE RESPIRATORY FAILURE, UNSP W HYPOXIA OR HYPERCAPNIA SNOMED Code(s): 10902923 (2) Cardiac arrest Current Visit: Yes Status: Acute Code(s): I46.9 - CARDIAC ARREST, CAUSE UNSPECIFIED SNOMED Code(s): 261752245 (3) Pneumonia Narrative/Plan: this is a 53-year-old male who presented to the hospital with acute ST elevated myocardial infarction, cardiac arrest, acute hypoxic respiratory failure with possible right lower lobe pneumonia, suspected aspiration pneumonia, concern for hypoxic encephalopathy. Patient has had ongoing fevers. He was started on Zosyn and we have added in vancomycin.blood cultures thus far have all been showing no growth. Cultures from BAL are currently in progress. Patient is going on a sedation holiday today. Continue supportive care. Further recommendations as patient progresses. 02/27/2019 pateint has shown some improvement and the Morexella was isolated and now on Rocephin with improvent. Patient relates he thinks he is going home tomorrow, which observer relates is not likely. 03/02/2019 the patient has had further improvement. He will be transitioned to a course of oral cefuroxime to complete the course of his gram-negative pneumonia with Moraxella. Apparently to be discharged home tomorrow on a tapering dose of steroids, with a decreasing doses his leukocytosis is improving and it is likely that the steroid therapy is causing his leukocytosis. Fortun ately his respiratory status is further improved and he is even improved his vocal quality as he is recovering. He will follow with pulmonary critical care after discharge Current Visit: Yes Status: Acute Code(s): J18.9 - PNEUMONIA, UNSPECIFIED ORGANISM SNOMED Code(s): 287669136
--- NOTE | 2019-03-02 23:41 | P.PN ---
Subjective Progress Note Date: 02/28/19 Principal diagnosis: Cardiac arrest Ventricular tachycardia Cardiac catheterizationstent placement acute hypoxic respiratory failure This is a pleasant 53 years old male with no significant past medical history. Patient could not provide information which were obtained from the medical records and his staff. Documents patient has been diagnosed with pneumonia for about a week, also patient is a cigarette smoker about 2 packs per day and alcohol drinker with both liquor and beer. Patient was getting more dyspneic last night however he was drinking alcohol. Family called 911 . In route patient suffered cardiopulmonary arrest with a showing V. fib, patient underwent resuscitation with CPR and cardiac electric shock as he has been having unresponsive and pulseless. Aspirin 324 mg was provided for the patient. I'll refer to the emergency room patient was still pending. And pulseless, he received more electric shock and CPR, eventually patient and his pills. EKG showed acute STEMI and STEMI alert was called. Patient admitted intubation and mechanical ventilation. He underwent emergent cardiac cath showing total occlusion of the left anterior descending artery and 90% stenosis of the circumflex coronary artery with large dominant right coronary artery Currently patient remains in the ICU, his moderately tachycardic with heart rate 115-120, blood pressure 121/79, breathing rate 18, saturating 96% with FiO2 of 70%, patient is afebrile. Labs showing WBC of 16.8 K, hemoglobin 15.8. Electrolytes are within normal limits and creatinine 1.0, elevated lactic acid 4.6 and 3.0, elevated troponin 146. Elevated liver enzymes with AST 25 and ALT 271. Serum alcohol level was 211. Chest x-ray: Evidence of interstitial face pulmonary edema Patient currently on aspirin 81 mg, Lipitor 80 mg and Brillinta. As well as normal saline 75 mL/h This morning patient have a low-grade temperature of 99.9, patient has a Lizama catheter were don't repeat urinalysis. Patient has NG tube with a few millimeters of dark-colored aspirated fluid, or going to check occult blood in sample. Patient is currently moderately tachycardic around 120 02/22/2019 Patient remains in the ICU, intubated and sedated. His undergoing weaning trial by critical care team. Hemoglobin remained stable despite being started on aspirin and ramipril intact with positive occult blood in the stomach secretions. She will feeding can be started today. Patient continued having fever today at 100. Chest x-ray showed patchy density in the right upper lobe suspicious for pneumonia versus atelectasis. Sputum culture still pending as well as urine culture. pro-calcitonin is ordered. Patient is slightly tachycardic and tachypneic. He is getting Ativan as needed for agitation as pa rt of his CIWA protocol. He got 3 mg of Ativan yesterday and 2 mg overnight. Patient continue on normal saline at 75 mL/h Left showing improvement leukocytosis down to 13.6, worsening liver enzymes, however bilirubin is within normal limits 02/23/19 Patient remains in the ICU, intubated and sedated. His undergoing weaning trial by critical care team for the second day.Hb stable , has leukocytosis of 14.1K compared to 13.6 yesterday , and pt was started on zosyn for possible pna, as chest xray : small right and retrocardiac infilterate. K 3.4 and creatinine 0.9, liver enz improved from 500+ to around 200. pt remains sedated and unresponsive and he might need further neurological evaluation if no awaking, CT brain: no acute event but dense MCA and radiologist recommended to consider contrast study. 02/24/19 Patient remains in the ICU, difficult to arouse, a still dependent on mechanical ventilation.patient underwent bronchoscopy and BALtoday.current specimens were sent for lab. Also casket trimmer following the case closelyand patient is to continue with the same medication, currently he is on Zosyn normal saline at 40 mL/h. Also he is on intravenous Lasix 40 mg. he is Still tachycardic and tachypneic. His W BC is coming down slightly to 12.1 K. Low potassium was replaced.patient is followed closely by critical care team. 02/25/2019 Patient remains in the ICU intubated. He is status post bronchoscopy yesterday and his breathing is easier today, his still tachypneic though at 24, however his less tachycardic down to 96-98 blood pressure 101/60. Patient has persiste nt fever between 100 to 100.8. Another sample of blood culture sent last night, cultures are negative so far. Patient remains on Zosyn. We got to consult infectious disease for help with the antibiotic choice. His WBC is 11.3 02/26/2019 Patient was successfully extubated today. Lethargic but seems to be comfortable. No complaints of chest pain. Does have baseline shortness of Breath. No nausea no vomiting.2-D echocardiogram showed ejection fraction 40-45% and apicaland lateral and inferior wall hypokinesis along withsupplehypokinesis. No significant valvular abnormalities. Chest x-ray showedbilateral infiltrates more on the right. Bronchial cultures are negative so far. Patient is being continued on antibiotics in the form of vancomycin and Zosyn.atient has been afebrile. ID is on board. continued on aspirin, Brilinta, metoprolol. Pulmonary and cardiology is following. 02/27/2019 patient is currently lying in the bed comfortably. More awake and oriented 3. Requiring oxygen with via cannula. Bronchial cultures growing Moraxella catarrhalis. 7 Zosyn and vancomycin has been discontinued and ceftriaxone was started as per ID recommendations Patient has been afebrile. Otherwise patient did have leukocytosis increased to 15.6. Potassium 3.0 which is being replaced. Denied any complaints of chest pain orworsening shortness of breath. Chest x-ray showed new bilateral pulmonary infiltrates possibly component of vascular congestion/edema. of 40-45% with [id number] impairment of the LV, segmental wall motion abnormality is are also present. He is currently afebrile. 02/28/2019 patient is currently awake alert and oriented 3. Still having shortness of br eath Currently on oxygen 8 Lasal cannula. Patient was given IV Lasix. C pulmonary edema and bilateral pulmonary infiltrates. Patient is being treated with ceftriaxone currently. BAL cultures grew Moraxella catarrhalis.ID is on board. no complaints of nausea or vomiting. Patient remained on sinus rhythm and continue with cardiac medications. Potassium improved to 3.7 Current medications reviewed. Active Medications Acetaminophen (Tylenol Tab) 650 mg PO Q4HR PRN PRN Reason: Fever and/or Mild Pain Last Admin: 02/24/19 06:34 Dose: 650 mg Documented by: Al Hydroxide/Mg Hydroxide (Maalox) 30 ml PO Q4HR PRN PRN Reason: Heartburn Albuterol/Ipratropium (Duoneb 0.5 Mg-3 Mg/3 Ml Soln) 3 ml INHALATION RT-Q4H SUKHDEEP Last Admin: 02/27/19 21:03 Dose: 3 ml Documented by: Albuterol/Ipratropium (Duoneb 0.5 Mg-3 Mg/3 Ml Soln) 3 ml INHALATION RT-Q2H PRN PRN Reason: Shortness Of Breath Or Wheezing Aspirin (Aspirin) 81 mg PO DAILY [facility] Last Admin: 02/27/19 08:01 Dose: 81 mg Documented by: Atorvastatin Calcium (Lipitor) 80 mg PO HS [facility] Last Admin: 02/27/19 21:20 Dose: 80 mg Documented by: Hydromorphone HCl (Dilaudid) 1 mg IVP Q4HR PRN PRN Reason: Pain Last Admin: 02/23/19 06:04 Dose: 1 mg Documented by: Sodium Chloride (Saline 0.9%) 1,000 mls @ 10 mls/hr IV .Q24H [facility] Last Admin: 02/27/19 12:34 Dose: Not Given Documented by: Ceftriaxone Sodium 2 gm/ (Sodium Chloride) 50 mls @ 100 mls/hr IVPB Q24HR [facility] Last Admin: 02/27/19 08:01 Dose: 100 mls/hr Documented by: Metoprolol Tartrate (Lopressor) 12.5 mg PO TID [facility] Last Admin: 02/27/19 21:20 Dose: 12.5 mg Documented by: Miscellaneous Information (Potassium Per Protocol) 1 each MISCELLANE DAILY PRN; Protocol PRN Reason: Per Protocol Naloxone HCl (Narcan) 0.2 mg IV Q2M PRN PRN Reason: Opioid Reversal Pantoprazole Sodium (Protonix) 40 mg PO AC-BID [facility] Last Admin: 02/27/19 17:35 Dose: Not Given Documented by: Thiamine HCl (Vitamin B-1) 100 mg IVP DAILY [facility] Last Admin: 02/27/19 08:13 Dose: 100 mg Documented by: Ticagrelor (Brilinta) 90 mg PO BID [facility] Last Admin: 02/27/19 21:20 Dose: 90 mg Documented by: Objective - Vital Signs Vital signs: Vital Signs Temp 98.5 F 02/28/19 20:00 Pulse 117 H 02/28/19 20:00 Resp 21 02/28/19 20:00 BP 134/83 02/28/19 20:00 Pulse Ox 92 L 02/28/19 20:00 Intake & Output 02/28/19 02/28/19 03/01/19 06:59 18:59 06:59 Intake Total 240 190 500 Output Total 610 1650 350 Balance -370 -1460 150 Weight 120.6 kg 120.6 kg Intake: IV 240 190 20 Sodium Chloride 0.9% 1, 240 190 20 000 ml @ 10 mls/hr IV . Q24H [facility] Rx#:[id number] Oral 480 Output: Urine 610 1650 350 Other: Voiding Method Indwelling Catheter Urinal # Voids 1 ABP, PAP, CO, CI - Last Documented Arterial Blood Pressure 99/69 - Exam PHYSICAL EXAMINATION: Patient is lying in the bed comfortably, no acute distress, awake alert and oriented.lethargic and drosy. HEENT: Normocephalic. Neck is supple. Pupils reactive. Nostrils clear. Oral cavity is moist. Ears reveal no drainage. Neck reveals no JVD, carotid bruits, or thyromegaly. CHEST EXAMINATION: Trachea is central. Symmetrical expansion. bilateral scattered rhonchi crackle diminished sounds basilar. CARDIAC: Normal S1, S2 with no gallops. No murmurs ABDOMEN: Soft. Bowel sounds normal. No organomegaly. No abdominal bruits. Extremities: trace edema. No clubbing or cyanosis Neurologically awake, alert, oriented x3 with well-coordinated movements. No focal deficits noted Skin: No rash or skin lesions. Psychiatric: Coperative. Nonsuicidal Musculoskeletal: No joint swelling or deformity. Normal range of motion. - Labs CBC & Chem 7: 03/02/19 12:10 03/01/19 05:22 Labs: Abnormal Lab Results - Last 24 Hours (Table) 02/27/19 02/28/19 02/28/19 Range/Units 22:36 04:41 04:45 WBC 12.8 H (3.8-10.6) k/uL RBC 3.81 L (4.30-5.90) m/uL Hgb 11.9 L (13.0-17.5) gm/dL Hct 34.6 L (39.0-53.0) % Potassium 3.2 L (3.5-5.1) mmol/L BUN 25 H (9-20) mg/dL Glucose 103 H (74-99) mg/dL 02/28/19 Range/Units 10:00 WBC (3.8-10.6) k/uL RBC (4.30-5.90) m/uL Hgb (13.0-17.5) gm/dL Hct (39.0-53.0) % Potassium 3.4 L (3.5-5.1) mmol/L BUN (9-20) mg/dL Glucose (74-99) mg/dL Microbiology - Last 24 Hours (Table) 02/24/19 09:15 Blood Culture - Preliminary Blood No Growth after 96 hours 02/24/19 20:13 Blood Culture - Preliminary Blood No Growth after 72 hours Assessment and Plan Assessment: -Acute anterior lateral STEMI, status post emergent cardiac cath showing total occlusion of LAD and 90% stenosis of circumflex coronary artery, status post stent placements 3 -Status post cardiac arrest secondary to V. fib, status post successful CPR and cardioversion. -right lower lobe pneumonia. Possibly aspiration. BAL cultures grew Moraxella catarrhalis. -Acute hypoxic respiratory failure status post intubation and mechanical ventilation -Alcohol abuse and risks of alcohol withdrawal -Right side and retrocardiac pneumonia -Nicotine dependence -Elevated lactic acid. Improvement -Elevated liver enzymes, mostly secondary to shock liver -hypokalemia Plan: This is a 53 years old male who presents with cardiac arrest secondary to acute STEMI, status post cardiac cath showing CAD and stent placement. Continue with aspirin, Brillinta and Lipitor. Start the patient on CIWA protocol, continue with thiamine. bronchial cultures showed Moraxella catarrh santa.. Consult infectious disease for possible pneumonia versus others and persistent fever. Patient has been afebrile now. Labs and medication were reviewed.. Continue same treatment. Continue with symptomatic treatment. Resume home medication. Monitor lytes and vitals. DVT and GI prophylaxis. Further recommendations of the clinical course of the patient DVT prophylaxis: aspirin and Brillinta GI Prophylaxis: Protonix Prognosis is guarded Time with Patient: Greater than 30
--- NOTE | 2019-03-02 23:43 | P.PN ---
Subjective Progress Note Date: 03/01/19 Principal diagnosis: Cardiac arrest Ventricular tachycardia Cardiac catheterizationstent placement acute hypoxic respiratory failure This is a pleasant 53 years old male with no significant past medical history. Patient could not provide information which were obtained from the medical records and his staff. Documents patient has been diagnosed with pneumonia for about a week, also patient is a cigarette smoker about 2 packs per day and alcohol drinker with both liquor and beer. Patient was getting more dyspneic last night however he was drinking alcohol. Family called 911 . In route patient suffered cardiopulmonary arrest with a showing V. fib, patient underwent resuscitation with CPR and cardiac electric shock as he has been having unresponsive and pulseless. Aspirin 324 mg was provided for the patient. I'll refer to the emergency room patient was still pending. And pulseless, he received more electric shock and CPR, eventually patient and his pills. EKG showed acute STEMI and STEMI alert was called. Patient admitted intubation and mechanical ventilation. He underwent emergent cardiac cath showing total occlusion of the left anterior descending artery and 90% stenosis of the circumflex coronary artery with large dominant right coronary artery Currently patient remains in the ICU, his moderately tachycardic with heart rate 115-120, blood pressure 121/79, breathing rate 18, saturating 96% with FiO2 of 70%, patient is afebrile. Labs showing WBC of 16.8 K, hemoglobin 15.8. Electrolytes are within normal limits and creatinine 1.0, elevated lactic acid 4.6 and 3.0, elevated troponin 146. Elevated liver enzymes with AST 25 and ALT 271. Serum alcohol level was 211. Chest x-ray: Evidence of interstitial face pulmonary edema Patient currently on aspirin 81 mg, Lipitor 80 mg and Brillinta. As well as normal saline 75 mL/h This morning patient have a low-grade temperature of 99.9, patient has a Lizama catheter were don't repeat urinalysis. Patient has NG tube with a few millimeters of dark-colored aspirated fluid, or going to check occult blood in sample. Patient is currently moderately tachycardic around 120 02/22/2019 Patient remains in the ICU, intubated and sedated. His undergoing weaning trial by critical care team. Hemoglobin remained stable despite being started on aspirin and ramipril intact with positive occult blood in the stomach secretions. She will feeding can be started today. Patient continued having fever today at 100. Chest x-ray showed patchy density in the right upper lobe suspicious for pneumonia versus atelectasis. Sputum culture still pending as well as urine culture. pro-calcitonin is ordered. Patient is slightly tachycardic and tachypneic. He is getting Ativan as needed for agitation as pa rt of his CIWA protocol. He got 3 mg of Ativan yesterday and 2 mg overnight. Patient continue on normal saline at 75 mL/h Left showing improvement leukocytosis down to 13.6, worsening liver enzymes, however bilirubin is within normal limits 02/23/19 Patient remains in the ICU, intubated and sedated. His undergoing weaning trial by critical care team for the second day.Hb stable , has leukocytosis of 14.1K compared to 13.6 yesterday , and pt was started on zosyn for possible pna, as chest xray : small right and retrocardiac infilterate. K 3.4 and creatinine 0.9, liver enz improved from 500+ to around 200. pt remains sedated and unresponsive and he might need further neurological evaluation if no awaking, CT brain: no acute event but dense MCA and radiologist recommended to consider contrast study. 02/24/19 Patient remains in the ICU, difficult to arouse, a still dependent on mechanical ventilation.patient underwent bronchoscopy and BALtoday.current specimens were sent for lab. Also mold parter following the case closelyand patient is to continue with the same medication, currently he is on Zosyn normal saline at 40 mL/h. Also he is on intravenous Lasix 40 mg. he is Still tachycardic and tachypneic. His W BC is coming down slightly to 12.1 K. Low potassium was replaced.patient is followed closely by critical care team. 02/25/2019 Patient remains in the ICU intubated. He is status post bronchoscopy yesterday and his breathing is easier today, his still tachypneic though at 24, however his less tachycardic down to 96-98 blood pressure 101/60. Patient has persiste nt fever between 100 to 100.8. Another sample of blood culture sent last night, cultures are negative so far. Patient remains on Zosyn. We got to consult infectious disease for help with the antibiotic choice. His WBC is 11.3 02/26/2019 Patient was successfully extubated today. Lethargic but seems to be comfortable. No complaints of chest pain. Does have baseline shortness of Breath. No nausea no vomiting.2-D echocardiogram showed ejection fraction 40-45% and apicaland lateral and inferior wall hypokinesis along withsupplehypokinesis. No significant valvular abnormalities. Chest x-ray showedbilateral infiltrates more on the right. Bronchial cultures are negative so far. Patient is being continued on antibiotics in the form of vancomycin and Zosyn.atient has been afebrile. ID is on board. continued on aspirin, Brilinta, metoprolol. Pulmonary and cardiology is following. 02/27/2019 patient is currently lying in the bed comfortably. More awake and oriented 3. Requiring oxygen with via cannula. Bronchial cultures growing Moraxella catarrhalis. 7 Zosyn and vancomycin has been discontinued and ceftriaxone was started as per ID recommendations Patient has been afebrile. Otherwise patient did have leukocytosis increased to 15.6. Potassium 3.0 which is being replaced. Denied any complaints of chest pain orworsening shortness of breath. Chest x-ray showed new bilateral pulmonary infiltrates possibly component of vascular congestion/edema. of 40-45% with [id number] impairment of the LV, segmental wall motion abnormality is are also present. He is currently afebrile. 02/28/2019 patient is currently awake alert and oriented 3. Still having shortness of br eath Currently on oxygen 8 Lasal cannula. Patient was given IV Lasix. C pulmonary edema and bilateral pulmonary infiltrates. Patient is being treated with ceftriaxone currently. BAL cultures grew Moraxella catarrhalis.ID is on board. no complaints of nausea or vomiting. Patient remained on sinus rhythm and continue with cardiac medications. Potassium improved to 3.7 03/01/2019 Patient is currently sitting in the nicolás comfortably. Oxygenation is improving. Currently on 2 L where nausea cannula. Chest x-ray showedimprovement in bilateralpulmonary infiltrates. No complaints of chest pain or worsening shortness of breath. No fever no chills. WBC count is elevated at 18.6. Currently being continued on antibiotics in the form of Rocephin for Moraxella catarrhalissputum cultures. Renal function is table. electrolytes within normal limits. Patient is being transferred to telemetry unit. Current medications reviewed. Active Medications Acetaminophen (Tylenol Tab) 650 mg PO Q4HR PRN PRN Reason: Fever and/or Mild Pain Last Admin: 12/14/19 06:34 Dose: 650 mg Documented by: Al Hydroxide/Mg Hydroxide (Maalox) 30 ml PO Q4HR PRN PRN Reason: Heartburn Albuterol/Ipratropium (Duoneb 0.5 Mg-3 Mg/3 Ml Soln) 3 ml INHALATION RT-Q4H [facility] Last Admin: 02/27/19 21:03 Dose: 3 ml Documented by: Albuterol/Ipratropium (Duoneb 0.5 Mg-3 Mg/3 Ml Soln) 3 ml INHALATION RT-Q2H PRN PRN Reason: Shortness Of Breath Or Wheezing Aspirin (Aspirin) 81 mg PO DAILY [facility] Last Admin: 02/27/19 08:01 Dose: 81 mg Documented by: Atorvastatin Calcium (Lipitor) 80 mg PO HS [facility] Last Admin: 02/27/19 21:20 Dose: 80 mg Documented by: Hydromorphone HCl (Dilaudid) 1 mg IVP Q4HR PRN PRN Reason: Pain Last Admin: 02/23/19 06:04 Dose: 1 mg Documented by: Sodium Chloride (Saline 0.9%) 1,000 mls @ 10 mls/hr IV .Q24H [facility] Last Admin: 02/27/19 12:34 Dose: Not Given Documented by: Ceftriaxone Sodium 2 gm/ (Sodium Chloride) 50 mls @ 100 mls/hr IVPB Q24HR [facility] Last Admin: 02/27/19 08:01 Dose: 100 mls/hr Documented by: Metoprolol Tartrate (Lopressor) 12.5 mg PO TID [facility] Last Admin: 02/27/19 21:20 Dose: 12.5 mg Documented by: Miscellaneous Information (Potassium Per Protocol) 1 each MISCELLANE DAILY PRN; Protocol PRN Reason: Per Protocol Naloxone HCl (Narcan) 0.2 mg IV Q2M PRN PRN Reason: Opioid Reversal Pantoprazole Sodium (Protonix) 40 mg PO AC-BID [facility] Last Admin: 02/27/19 17:35 Dose: Not Given Documented by: Thiamine HCl (Vitamin B-1) 100 mg IVP DAILY [facility] Last Admin: 02/27/19 08:13 Dose: 100 mg Documented by: Ticagrelor (Brilinta) 90 mg PO BID [facility] Last Admin: 02/27/19 21:20 Dose: 90 mg Documented by: Objective - Vital Signs Vital signs: Vital Signs Temp 98 F 03/01/19 20:05 Pulse 88 03/01/19 20:34 Resp 16 03/01/19 20:05 BP 104/60 03/01/19 20:05 Pulse Ox 91 L 03/01/19 20:05 Intake & Output 03/01/19 03/01/19 03/02/19 06:59 18:59 06:59 Intake Total 1080 810 Output Total 750 875 400 Balance 330 -65 -400 Weight 114.1 kg Intake: IV 120 50 Sodium Chloride 0.9% 1, 120 50 000 ml @ 10 mls/hr IV . Q24H [facility] Rx#:[id number] Oral 960 760 Output: Urine 750 875 400 Other: Voiding Method Urinal Urinal Urinal # Voids 1 1 # Bowel Movements 1 ABP, PAP, CO, CI - Last Documented Arterial Blood Pressure 99/69 - Exam PHYSICAL EXAMINATION: Patient is lying in the bed comfortably, no acute distress, awake alert and oriented.lethargic and drosy. HEENT: Normocephalic. Neck is supple. Pupils reactive. Nostrils clear. Oral cavity is moist. Ears reveal no drainage. Neck reveals no JVD, carotid bruits, or thyromegaly. CHEST EXAMINATION: Trachea is central. Symmetrical expansion. bilateral scattered rhonchi crackle diminished sounds basilar. CARDIAC: Normal S1, S2 with no gallops. No murmurs ABDOMEN: Soft. Bowel sounds normal. No organomegaly. No abdominal bruits. Extremities: trace edema. No clubbing or cyanosis Neurologically awake, alert, oriented x3 with well-coordinated movements. No focal deficits noted Skin: No rash or skin lesions. Psychiatric: Coperative. Nonsuicidal Musculoskeletal: No joint swelling or deformity. Normal range of motion. - Labs CBC & Chem 7: 03/02/19 12:10 03/01/19 05:22 Labs: Abnormal Lab Results - Last 24 Hours (Table) 03/01/19 03/01/19 03/01/19 Range/Units 05:22 05:22 16:54 WBC 18.6 H (3.8-10.6) k/uL RBC 3.83 L (4.30-5.90) m/uL Hgb 11.9 L (13.0-17.5) gm/dL Hct 34.9 L (39.0-53.0) % BUN 32 H (9-20) mg/dL Glucose 153 H (74-99) mg/dL POC Glucose (mg/dL) 136 H (75-99) mg/dL Microbiology - Last 24 Hours (Table) 02/24/19 09:15 Blood Culture - Preliminary Blood No Growth after 120 hours 03/01/19 00:30 Gram Stain - Preliminary Sputum Sputum Culture - Preliminary 02/24/19 20:13 Blood Culture - Preliminary Blood No Growth after 96 hours Assessment and Plan Assessment: -Acute anterior lateral STEMI, status post emergent cardiac cath showing total occlusion of LAD and 90% stenosis of circumflex coronary artery, status post stent placements 3 -Status post cardiac arrest secondary to V. fib, status post successful CPR and cardioversion. -right lower lobe pneumonia. Possibly aspiration. BAL cultures grew Moraxella catarrhalis. -Acute hypoxic respiratory failure status post intubation and mechanical ventilation -Alcohol abuse and risks of alcohol withdrawal -Right side and retrocardiac pneumonia -Nicotine dependence -Elevated lactic acid. Improvement -Elevated liver enzymes, mostly secondary to shock liver -hypokalemia Plan: This is a 53 years old male who presents with cardiac arrest secondary to acute STEMI, status post cardiac cath showing CAD and stent placement. Continue with aspirin, Brillinta and Lipitor. Start the patient on CIWA protocol, continue with thiamine. bronchial cultures showed Moraxella catarrhalis.. Consult infectious disease for possible pneumonia versus others and persistent fever. Patient has been afebrile now. Labs and medication were reviewed.. Continue same treatment. Continue with symptomatic treatment. Resume home medication. Monitor lytes and vitals. DVT and GI prophylaxis. Further recommendations of the clinical course of the patient DVT prophylaxis: aspirin and Brillinta GI Prophylaxis: Protonix Prognosis is guarded Time with Patient: Greater than 30
--- NOTE | 2019-03-02 23:48 | P.PN ---
Subjective Progress Note Date: 03/02/19 Principal diagnosis: Cardiac arrest Ventricular tachycardia Cardiac catheterizationstent placement acute hypoxic respiratory failure This is a pleasant 53 years old male with no significant past medical history. Patient could not provide information which were obtained from the medical records and his staff. Documents patient has been diagnosed with pneumonia for about a week, also patient is a cigarette smoker about 2 packs per day and alcohol drinker with both liquor and beer. Patient was getting more dyspneic last night however he was drinking alcohol. Family called 911 . In route patient suffered cardiopulmonary arrest with a showing V. fib, patient underwent resuscitation with CPR and cardiac electric shock as he has been having unresponsive and pulseless. Aspirin 324 mg was provided for the patient. I'll refer to the emergency room patient was still pending. And pulseless, he received more electric shock and CPR, eventually patient and his pills. EKG showed acute STEMI and STEMI alert was called. Patient admitted intubation and mechanical ventilation. He underwent emergent cardiac cath showing total occlusion of the left anterior descending artery and 90% stenosis of the circumflex coronary artery with large dominant right coronary artery Currently patient remains in the ICU, his moderately tachycardic with heart rate 115-120, blood pressure 121/79, breathing rate 18, saturating 96% with FiO2 of 70%, patient is afebrile. Labs showing WBC of 16.8 K, hemoglobin 15.8. Electrolytes are within normal limits and creatinine 1.0, elevated lactic acid 4.6 and 3.0, elevated troponin 146. Elevated liver enzymes with AST 25 and ALT 271. Serum alcohol level was 211. Chest x-ray: Evidence of interstitial face pulmonary edema Patient currently on aspirin 81 mg, Lipitor 80 mg and Brillinta. As well as normal saline 75 mL/h This morning patient have a low-grade temperature of 99.9, patient has a Lizama catheter were don't repeat urinalysis. Patient has NG tube with a few millimeters of dark-colored aspirated fluid, or going to check occult blood in sample. Patient is currently moderately tachycardic around 120 02/22/2019 Patient remains in the ICU, intubated and sedated. His undergoing weaning trial by critical care team. Hemoglobin remained stable despite being started on aspirin and ramipril intact with positive occult blood in the stomach secretions. She will feeding can be started today. Patient continued having fever today at 100. Chest x-ray showed patchy density in the right upper lobe suspicious for pneumonia versus atelectasis. Sputum culture still pending as well as urine culture. pro-calcitonin is ordered. Patient is slightly tachycardic and tachypneic. He is getting Ativan as needed for agitation as pa rt of his CIWA protocol. He got 3 mg of Ativan yesterday and 2 mg overnight. Patient continue on normal saline at 75 mL/h Left showing improvement leukocytosis down to 13.6, worsening liver enzymes, however bilirubin is within normal limits 02/23/19 Patient remains in the ICU, intubated and sedated. His undergoing weaning trial by critical care team for the second day.Hb stable , has leukocytosis of 14.1K compared to 13.6 yesterday , and pt was started on zosyn for possible pna, as chest xray : small right and retrocardiac infilterate. K 3.4 and creatinine 0.9, liver enz improved from 500+ to around 200. pt remains sedated and unresponsive and he might need further neurological evaluation if no awaking, CT brain: no acute event but dense MCA and radiologist recommended to consider contrast study. 02/24/19 Patient remains in the ICU, difficult to arouse, a still dependent on mechanical ventilation.patient underwent bronchoscopy and BALtoday.current specimens were sent for lab. Also machine design engineer following the case closelyand patient is to continue with the same medication, currently he is on Zosyn normal saline at 40 mL/h. Also he is on intravenous Lasix 40 mg. he is Still tachycardic and tachypneic. His W BC is coming down slightly to 12.1 K. Low potassium was replaced.patient is followed closely by critical care team. 02/25/2019 Patient remains in the ICU intubated. He is status post bronchoscopy yesterday and his breathing is easier today, his still tachypneic though at 24, however his less tachycardic down to 96-98 blood pressure 101/60. Patient has persiste nt fever between 100 to 100.8. Another sample of blood culture sent last night, cultures are negative so far. Patient remains on Zosyn. We got to consult infectious disease for help with the antibiotic choice. His WBC is 11.3 02/26/2019 Patient was successfully extubated today. Lethargic but seems to be comfortable. No complaints of chest pain. Does have baseline shortness of Breath. No nausea no vomiting.2-D echocardiogram showed ejection fraction 40-45% and apicaland lateral and inferior wall hypokinesis along withsupplehypokinesis. No significant valvular abnormalities. Chest x-ray showedbilateral infiltrates more on the right. Bronchial cultures are negative so far. Patient is being continued on antibiotics in the form of vancomycin and Zosyn.atient has been afebrile. ID is on board. continued on aspirin, Brilinta, metoprolol. Pulmonary and cardiology is following. 02/27/2019 patient is currently lying in the bed comfortably. More awake and oriented 3. Requiring oxygen with via cannula. Bronchial cultures growing Moraxella catarrhalis. 7 Zosyn and vancomycin has been discontinued and ceftriaxone was started as per ID recommendations Patient has been afebrile. Otherwise patient did have leukocytosis increased to 15.6. Potassium 3.0 which is being replaced. Denied any complaints of chest pain orworsening shortness of breath. Chest x-ray showed new bilateral pulmonary infiltrates possibly component of vascular congestion/edema. of 40-45% with [id number] impairment of the LV, segmental wall motion abnormality is are also present. He is currently afebrile. 02/28/2019 patient is currently awake alert and oriented 3. Still having shortness of br eath Currently on oxygen 8 Lasal cannula. Patient was given IV Lasix. C pulmonary edema and bilateral pulmonary infiltrates. Patient is being treated with ceftriaxone currently. BAL cultures grew Moraxella catarrhalis.ID is on board. no complaints of nausea or vomiting. Patient remained on sinus rhythm and continue with cardiac medications. Potassium improved to 3.7 03/01/2019 Patient is currently sitting in the nicolás comfortably. Oxygenation is improving. Currently on 2 L where nausea cannula. Chest x-ray showedimprovement in bilateralpulmonary infiltrates. No complaints of chest pain or worsening shortness of breath. No fever no chills. WBC count is elevated at 18.6. Currently being continued on antibiotics in the form of Rocephin for Moraxella catarrhalissputum cultures. Renal function is table. electrolytes within normal limits. Patient is being transferred to telemetry unit. 03/02/2019 patient is currently in the telemetry unit. Still having exertional shortness of breath and expiratory wheezing onlung exam. Patient's white count is increased to 22.1 today. patient is on IV steroids and also on IV Lasix. No complaints of chest pain. No leg swelling.patient has been afebrile. No chills. Able to CT of the chair comfortably andtolerate oral diet. Patient is currently on room air. Continued on IV antibiotics in t ceftriaxone. cardiology, pulmonary and ID is on board. No other acute overnight issues. Current medications reviewed. Active Medications Acetaminophen (Tylenol Tab) 650 mg PO Q4HR PRN PRN Reason: Fever and/or Mild Pain Last Admin: 03/02/19 20:30 Dose: 650 mg Documented by: Hydrocodone Bitart/Acetaminophen (M[place]on 5-325) 1 each PO Q6HR PRN PRN Reason: Moderate Pain Last Admin: 03/02/19 16:44 Dose: 1 each Documented by: Al Hydroxide/Mg Hydroxide (Maalox) 30 ml PO Q4HR PRN PRN Reason: Heartburn Albuterol/Ipratropium (Duoneb 0.5 Mg-3 Mg/3 Ml Soln) 3 ml INHALATION RT-Q4H [facility] Last Admin: 03/02/19 23:23 Dose: Not Given Documented by: Albuterol/Ipratropium (Duoneb 0.5 Mg-3 Mg/3 Ml Soln) 3 ml INHALATION RT-Q2H PRN PRN Reason: Shortness Of Breath Or Wheezing Aspirin (Aspirin) 81 mg PO DAILY [facility] Last Admin: 03/02/19 08:26 Dose: 81 mg Documented by: Atorvastatin Calcium (Lipitor) 80 mg PO HS [facility] Last Admin: 03/02/19 20:29 Dose: 80 mg Documented by: Furosemide (Lasix) 40 mg IV Q12HR [facility] Last Admin: 03/02/19 16:45 Dose: 40 mg Documented by: Hydromorphone HCl (Dilaudid) 1 mg IVP Q4HR PRN PRN Reason: Severe Pain Last Admin: 03/01/19 21:48 Dose: 1 mg Documented by: Sodium Chloride (Saline 0.9%) 1,000 mls @ 10 mls/hr IV .Q24H [facility] Last Admin: 03/02/19 11:57 Dose: Not Given Documented by: Ceftriaxone Sodium 2 gm/ (Sodium Chloride) 50 mls @ 100 mls/hr IVPB Q24HR [facility] Last Admin: 03/02/19 08:26 Dose: 100 mls/hr Documented by: Methylprednisolone Sodium Succinate (Solu-Medrol) 40 mg IV Q8HR [facility] Last Admin: 03/02/19 16:45 Dose: 40 mg Documented by: Metoprolol Tartrate (Lopressor) 12.5 mg PO TID [facility] Last Admin: 03/02/19 16:44 Dose: 12.5 mg Documented by: Miscellaneous Information (Potassium Per Protocol) 1 each MISCELLANE DAILY PRN; Protocol PRN Reason: Per Protocol Naloxone HCl (Narcan) 0.2 mg IV Q2M PRN PRN Reason: Opioid Reversal Pantoprazole Sodium (Protonix) 40 mg PO AC-BID [facility] Last Admin: 03/02/19 06:42 Dose: 40 mg Documented by: Ticagrelor (Brilinta) 90 mg PO BID [facility] Last Admin: 03/02/19 20:30 Dose: 90 mg Documented by: Objective - Vital Signs Vital signs: Vital Signs Temp 98.0 F 03/02/19 20:00 Pulse 84 03/02/19 20:05 Resp 16 03/02/19 20:05 BP 106/66 03/02/19 20:00 Pulse Ox 96 03/02/19 20:00 Intake & Output 03/02/19 03/02/19 03/03/19 06:59 18:59 06:59 Intake Total 834 Output Total 750 Balance -750 834 Weight 116.4 kg Intake: Oral 834 Output: Urine 750 Other: Voiding Method Urinal Urinal Urinal # Voids 1 1 ABP, PAP, CO, CI - Last Documented Arterial Blood Pressure 99/69 - Exam PHYSICAL EXAMINATION: Patient is lying in the bed comfortably, no acute distress, awake alert and oriented. HEENT: Normocephalic. Neck is supple. Pupils reactive. Nostrils clear. Oral cavity is moist. Ears reveal no drainage. Neck reveals no JVD, carotid bruits, or thyromegaly. CHEST EXAMINATION: Trachea is central. Symmetrical expansion. bilateral air entry improved with expiratory wheezing and scattered rhonchi. CARDIAC: Normal S1, S2 with no gallops. No murmurs ABDOMEN: Soft. Bowel sounds normal. No organomegaly. No abdominal bruits. Extremities: trace edema. No clubbing or cyanosis Neurologically awake, alert, oriented x3 with well-coordinated movements. No focal deficits noted Skin: No rash or skin lesions. Psychiatric: Coperative. Nonsuicidal Musculoskeletal: No joint swelling or deformity. Normal range of motion. - Labs CBC & Chem 7: 03/02/19 12:10 03/01/19 05:22 Labs: Abnormal Lab Results - Last 24 Hours (Table) 03/02/19 Range/Units 12:10 WBC 22.1 H (3.8-10.6) k/uL RBC 3.83 L (4.30-5.90) m/uL Hgb 11.7 L (13.0-17.5) gm/dL Hct 34.6 L (39.0-53.0) % Neutrophils # 19.0 H (1.3-7.7) k/uL Monocytes # 1.2 H (0-1.0) k/uL Microbiology - Last 24 Hours (Table) 02/24/19 20:13 Blood Culture - Final Blood No Growth after 144 hours 03/01/19 00:30 Gram Stain - Preliminary Sputum Sputum Culture - Preliminary 02/24/19 09:15 Blood Culture - Final Blood No Growth after 144 hours 02/24/19 10:15 Fungal Culture - Preliminary Bronchial Washings - Random Lilliana albicans Assessment and Plan Assessment: -Acute anterior lateral STEMI, status post emergent cardiac cath showing total occlusion of LAD and 90% stenosis of circumflex coronary artery, status post stent placements 3 -Status post cardiac arrest secondary to V. fib, status post successful CPR and cardioversion. -right lower lobe pneumonia. Possibly aspiration. BAL cultures grew Moraxella catarrhalis. -Acute hypoxic respiratory failure status post intubation and mechanical ve ntilation -possible COPD exacerbation -Alcohol abuse and risks of alcohol withdrawal -Right side and retrocardiac pneumonia -Nicotine dependence -Elevated lactic acid. Improvement -Elevated liver enzymes, mostly secondary to shock liver -hypokalemia Plan: This is a 53 years old male who presents with cardiac arrest secondary to acute STEMI, status post cardiac cath showing CAD and stent placement. Continue with aspirin, Brillinta and Lipitor. Start the patient on CIWA protocol, continue with thiamine. bronchial cultures showed Moraxella catarrhalis.. Patient has been afebrile now.continue with IV Lasix and IVsteroids and breathing treatments. Monitor WBC count. Labs and medication were reviewed.. Continue with symptomatic treatment. Monitor lytes and vitals. DVT and GI prophylaxis. Further recommendations of the clinical course of the patient DVT prophylaxis: aspirin and Brillinta GI Prophylaxis: Protonix Prognosis is guarded Time with Patient: Greater than 30
[2019-03-03] MEDS: methylPREDNISolone SOD SUCCI 40 MG/ML 1 ML VIAL IV SCH ×4 (00:21→23:18)
[2019-03-03] MEDS: METOPROLOL TARTRATE 12.5 MG TAB PO SCH ×4 (00:21→21:28)
[2019-03-03] MEDS: HYDROcodone/APAP 5-325MG 1 EACH TAB PO PRN ×2 (00:26→23:18)
[2019-03-03] MEDS: IPRATROPIUM-ALBUTEROL 3 ML NEB INHALATION SCH ×5 (03:37→20:40)
[2019-03-03] MEDS: PANTOPRAZOLE 40 MG TABLET PO SCH ×3 (05:27→16:06)
[2019-03-03 06:23] LABS: Basophils # (A) 0.1 k/uL (0-0.2); Basophils % (A) 0 %; Eosinophils # (A) 0.1 k/uL (0-0.7); Eosinophils % (A) 1 %; HCT 34.9 % (39.0-53.0); HGB 12.4 gm/dL (13.0-17.5); Lymphocytes # (A) 1.5 k/uL (1.0-4.8); Lymphocytes % (A) 7 %; MCH 31.7 pg (25.0-35.0); MCHC 35.4 g/dL (31.0-37.0); MCV 89.5 fL (80.0-100.0); Mean Platelet Volume 9.1; Monocytes % (A) 5 %; Neutrophils % (A) 86 %; Platelet Count 379 k/uL (150-450); RDW 13.2 % (11.5-15.5); WBC 20.9 k/uL (3.8-10.6)
[2019-03-03 06:34] LABS: African American GFR (CKD) >90 (>60 ml/min/1.73 sqM); Anion Gap 11 mmol/L; Blood Urea Nitrogen 33 mg/dL (9-20); Calcium 9.7 mg/dL (8.4-10.2); Carbon Dioxide 22 mmol/L (22-30); Chloride 103 mmol/L (98-107); Glucose 135 mg/dL (74-99); Non-African American GFR(CKD) >90 (>60 ml/min/1.73 sqM); Sodium 136 mmol/L (137-145)
--- NOTE | 2019-03-03 06:53 | XR ---
EXAMINATION TYPE: XR chest 2V DATE OF EXAM: 03/03/2019 HISTORY: shortness of breath. REFERENCE: Previous study dated 03/02/2019. FINDINGS: Heart size is within normal limits. There is mild vascular congestion and interstitial de leon ge. This has perhaps improved slightly from previous. No definite pleural fluid is seen. IMPRESSION: MILD IMPROVEMENT IN THE PATIENT'S PULMONARY EDEMA.
[2019-03-03] MEDS: FUROSEMIDE 10 MG/ML 4 ML VIAL IV SCH ×2 (10:21→21:26)
[2019-03-03] MEDS: TICAGRELOR 90 MG TAB PO SCH ×2 (10:22→21:29)
[2019-03-03] MEDS: ASPIRIN 81 MG PO SCH (10:22)
[2019-03-03] MEDS: SPIRONOLACTONE 25 MG TAB PO SCH (10:30)
--- NOTE | 2019-03-03 11:15 | P.DS ---
Providers Date of admission: 02/20/19 20:35 Attending physician: Leonel Moore MD Consults: 02/20/19 22:02 Consult Physician Routine Consulting Provider: [facility] Consult Reason/Comments: Post Interventional patient Do you want consulting provider notified?: Already Contacted 02/20/19 22:13 Consult Physician Urgent Consulting Provider: Jacob Blount Consult Reason/Comments: Vent Mgmt Do you want consulting provider notified?: Yes 02/21/19 06:50 Consult Physician Stat Consulting Provider: Venessa Jaems Consult Reason/Comments: Vent Management Do you want consulting provider notified?: Already Contacted 02/25/19 12:34 Consult Physician Routine Consulting Provider: Devin Diana Consult Reason/Comments: fevers Do you want consulting provider notified?: Yes Primary care physician: [facility] Course: She with advanced COPD is admitted for severe tracheal bronchitis fever and sepsis secondary to tracheal bronchitis and COPD exacerbation patient has advanc ed COPD is 5. Oxygen at home. Patient is presently on 7 L saturating well we taper it down today she does have significant wheezing on exam but as per the patient is his baseline and patient believes he is at his baseline. Patient will be discharged today. Patient was also treated for acute renal failure secondary to excessive diuretic therapy patient appears to have cor pulmonale and right-sided heart failure. Patient is presently on 60 mg oral twice a day of Lasix and patient will be discharged on the same. Patient does have history of psoriasis, history skin lesions admitted because of IV steroids and received. Patient's serum creatinine is: Close to his baseline and patient will be discharged today on weaning dose of steroids. Patient was hypoglycemic because, his long-acting insulin dose was increased to 70 from 40. Patient blood sugars were out of control because of systemic steroids he was receiving presently on oral steroids since his current be discharged on oral steroids and we'll increase the long-acting insulin 50 units until he is done with the steroids after which patient will go back on 40 it's at nighttime. Patient will be discharged on oxygen as recorded per infectious disease. PHYSICAL EXAMINATION: GENERAL: The patient is alert and oriented x3, not in any acute distress. Obese HEENT: Pupils are round and equally reacting to light. EOMI. No scleral icterus. No conjunctival pallor. Normocephalic, atraumatic. No pharyngeal erythema. No thyromegaly. CARDIOVASCULAR: S1 and S2 present. No murmurs, rubs, or gallops. PULMONARY: Expiratory wheezing on exam ABDOMEN: Soft, nontender, nondistended, normoactive bowel sounds. No palpable organomegaly. MUSCULOSKELETAL: No joint swelling or deformity. EXTREMITIES: No cyanosis, clubbing, or pedal edema. NEUROLOGICAL: Gross neurological examination did not reveal any focal deficits. SKIN: Diffuse psoriatic lesions all over the body Please refer to dictation from above for further details of hospital physician course and other medical problems that were addressed in this hospitalization Patient Condition at Discharge: Critical Plan - Discharge Summary New Discharge Prescriptions: New Cefditoren Pivoxil 400 mg PO BID #14 tablet No Action Aspirin EC [Ecotrin] 325 mg PO DAILY PRN PRN Reason: Pain guaiFENesin [Mucinex] 600 mg PO BID PRN PRN Reason: Cough guaiFENesin SYRUP 100MG/5ML [Robitussin] 200 mg PO Q6H PRN PRN Reason: Cough Ibuprofen [Motrin Ib] 400 mg PO Q6H PRN PRN Reason: Pain Discharge Medication List Aspirin EC [Ecotrin] 325 mg PO DAILY PRN 02/20/19 [History] Ibuprofen [Motrin Ib] 400 mg PO Q6H PRN 02/20/19 [History] guaiFENesin SYRUP 100MG/5ML [Robitussin] 200 mg PO Q6H PRN 02/20/19 [History] guaiFENesin [Mucinex] 600 mg PO BID PRN 02/20/19 [History] Cefditoren Pivoxil 400 mg PO BID #14 tablet 03/02/19 [Rx] Follow up Appointment(s)/Referral(s): [facility], [NON-STAFF] - 1-2 Days Jamie Armas DO [Primary Care Provider] - 1-2 Days
[2019-03-03] MEDS: SODIUM CHLORIDE 0.9% 1,000 ML IV SCH (12:19)
--- NOTE | 2019-03-03 13:17 | P.PN ---
Subjective This is a pleasant 53-year-old male past medical history significant for chronic nicotine dependence. He initially presented to the hospital secondary to cardiopulmonary arrest with ventricular fibrillation. He is seen and examined sitting up in the chair in no acute distress. He underwent successful stenting to the LAD and circumflex artery. Yesterday he was initiated on IV Lasix secondary to congestive heart failure. He states last evening he had a terrible night sleep he was up all night short of breath. He had significant orthopnea. Multiple time she attempted to lay down and get some rest and each time he felt like he was "drowning" and had to sit up to breathe. He has lower extremity edema and is quite anxious to go home. Blood pressure 123/78 heart rate 84 afebrile maintaining oxygen saturation on room air. La boratory data reviewed, WBC 20.9, hemoglobin 12.4, platelets 379, sodium 136, potassium 4.0, creatinine 0.75. Currently maintained on Lasix 40 mg IV twice a day, aspirin 81 mg daily, Prolixin 1090 mg twice a day, Lopressor 12.5 mg 3 times a day and atorvastatin 80 mg daily. Repeat chest x-ray this morning shows mild improvement in pulmonary edema, ongoing vascular congestion. Echocardiogram obtained on admission reveals impaired LV systolic function with ejection fraction 40-45%, apical anterior, apical lateral, apical inferior and apical septal wall motion hypokinesia. GENERAL: Well-appearing, well-nourished and in no acute distress. NECK: Supple without JVD or thyromegaly. LUNGS: Bibasilar rales. Respiration equal and unlabored. No wheezes or rhonchi. HEART: Regular rate and rhythm without murmurs, rubs or gallops. S1 and S2 heard. EXTREMITIES: Normal range of motion, 2+ bilateral lower extremity pitting edema. No clubbing or cyanosis. Peripheral pulses intact. ASSESSMENT Acute STEMI in the setting of cardiac arrest and ventricular fibrillation Coronary artery disease status post successful revascularization Ischemic cardiomyopathy Acute systolic heart failure Leukocytosis Chronic nicotine dependence PLAN Continue to diuresis with IV Lasix. Add Aldactone 25 mg daily. Further recommendations to follow based upon clinical course. Nurse Practitioner note has been reviewed, I agree with a documented findings and plan of care. Patient was seen and examined. Objective - Vital Signs Vital signs: Vital Signs Temp 97.8 F 03/03/19 04:00 Pulse 84 03/03/19 11:47 Resp 17 03/03/19 08:25 BP 123/78 03/03/19 08:25 Pulse Ox 94 L 03/03/19 08:25 Intake & Output 03/02/19 03/03/19 03/03/19 18:59 06:59 18:59 Intake Total 834 1014 170 Output Total 600 1000 Balance 834 414 -830 Weight 114.8 kg Intake: Intake, IV Titration 50 Amount cefTRIAXone 2 gm In 50 Sodium Chloride 0.9% 50 ml @ 100 mls/hr IVPB Q24HR [facility] Rx#:[id number] Oral 834 1014 120 Output: Urine 600 1000 Other: Voiding Method Urinal Urinal # Voids 1 1 ABP, PAP, CO, CI - Last Documented Arterial Blood Pressure 99/69 - Labs CBC & Chem 7: 03/03/19 06:03 03/03/19 06:03 Labs: Abnormal Lab Results - Last 24 Hours (Table) 03/03/19 03/03/19 Range/Units 06:03 06:03 WBC 20.9 H (3.8-10.6) k/uL RBC 3.90 L (4.30-5.90) m/uL Hgb 12.4 L (13.0-17.5) gm/dL Hct 34.9 L (39.0-53.0) % Neutrophils # 18.0 H (1.3-7.7) k/uL Sodium 136 L (137-145) mmol/L BUN 33 H (9-20) mg/dL Glucose 135 H (74-99) mg/dL Microbiology - Last 24 Hours (Table) 03/01/19 00:30 Gram Stain - Final Sputum Sputum Culture - Final 02/24/19 20:13 Blood Culture - Final Blood No Growth after 144 hours 02/24/19 09:15 Blood Culture - Final Blood No Growth after 144 hours 02/24/19 10:15 Fungal Culture - Preliminary Bronchial Washings - Random Lilliana albicans
--- NOTE | 2019-03-03 15:50 | P.PN ---
Subjective Progress Note Date: 03/03/19 The patient is seen today 03/03/2019 in follow-up on the selective care unit. He is currently awake and alert in no acute distress. He's been up ambulating in the [place] with assistance. He is getting stronger every day. He denies any worsening shortness of breath, cough or congestion. Lungs are sounding quite clear. He is maintaining O2 saturations up to 99% on room air. White count 20.9. Hemoglobin 12.4. Creatinine 0.75. He remains on bronchodilators, IV Solu- Medrol, IV diuretics. Chest x-ray continues to show improvement. Objective - Vital Signs Vital signs: Vital Signs Temp 97.8 F 03/03/19 04:00 Pulse 83 03/03/19 12:20 Resp 17 03/03/19 12:20 BP 117/73 03/03/19 12:20 Pulse Ox 99 03/03/19 12:20 Intake & Output 03/02/19 03/03/19 03/03/19 18:59 06:59 18:59 Intake Total 834 1014 530 Output Total 600 1000 Balance 834 414 -470 Weight 114.8 kg Intake: Intake, IV Titration 50 Amount cefTRIAXone 2 gm In 50 Sodium Chloride 0.9% 50 ml @ 100 mls/hr IVPB Q24HR [facility] Rx#:[id number] Oral 834 1014 480 Output: Urine 600 1000 Other: Voiding Method Urinal Urinal # Voids 1 1 ABP, PAP, CO, CI - Last Documented Arterial Blood Pressure 99/69 - Exam Gen. appearance, Awake and alert pleasant 53-year-old gentleman, oriented 3,comfortable and on room air. Head exam was generally normal. There was no scleral icterus or corneal arcus. Mucous membranes were moist. Neck was supple and without jugular venous distension, thyromegaly, or carotid bruits. Carotids were easily palpable bilaterally. There was no adenopathy. Lungs were clear to auscultation and percussion, and with normal diaphragmatic excursion. No wheezes or rales were noted. Cardiac exam revealed the PMI to be normally situated and sized. The rhythm was regular and no extrasystoles were noted during several minutes of auscultation. The first and second heart sounds were normal and physiologic splitting of the second heart sound was noted. There were no murmurs, rubs, clicks, or gallops. Abdominal exam revealed normal bowel sounds. The abdomen was soft, non-tender, and without masses, organomegaly, or appreciable enlargement of the abdominal aorta. Examination of the extremities revealed easily palpable radial, femoral and pedal pulses. There was no cyanosis, clubbing or edema. Examination of the skin revealed no evidence of significant rashes, suspicious appearing nevi or other concerning lesions. Neurologically his pupils are round 4 mm in size reactive to light. no focal neurological deficit. Motor weakness. - Labs CBC & Chem 7: 03/03/19 06:03 03/03/19 06:03 Labs: Abnormal Lab Results - Last 24 Hours (Table) 03/03/19 03/03/19 Range/Units 06:03 06:03 WBC 20.9 H (3.8-10.6) k/uL RBC 3.90 L (4.30-5.90) m/uL Hgb 12.4 L (13.0-17.5) gm/dL Hct 34.9 L (39.0-53.0) % Neutrophils # 18.0 H (1.3-7.7) k/uL Sodium 136 L (137-145) mmol/L BUN 33 H (9-20) mg/dL Glucose 135 H (74-99) mg/dL Microbiology - Last 24 Hours (Table) 03/01/19 00:30 Gram Stain - Final Sputum Sputum Culture - Final 02/24/19 20:13 Blood Culture - Final Blood No Growth after 144 hours 02/24/19 09:15 Blood Culture - Final Blood No Growth after 144 hours 02/24/19 10:15 Fungal Culture - Preliminary Bronchial Washings - Random Lilliana albicans Assessment and Plan Assessment: 1 acute STEMI, post emergent cardiac catheterization and insertion of coronary stents including the LAD and the circumflex 2 cardiac arrest, out of hospital secondary to ventricular fibrillation post TX, initially intubated on a mechanical ventilator and hemodynamically stable, recovered and on room air. 3 acute hypoxic respiratory failure secondary to above with a suspected right lower lobe pneumonia. His follow-up chest x-ray showed pulmonary edema and he'll be started on IV Lasix. Note that his bronchoscopy showed Moraxella catarrhalis and the patient is currently on IV Rocephin per IDs recommendation. The patient got diuresed with IV Lasix and he is a negative fluid balance. The chest x-ray is improving. the patient continues to improve. 4 right lower lobe pneumonia, likely aspiration, subsequent the patient about diffuse bilateral pulmonary infiltrates which improved on follow-up chest x-ray. 5 fever, source is not clear, currently afebrile 6 smoker 7 COPD 8 altered mentation, recovered and the patient is awake and alert 3 Plan The patient is seen and evaluated by Dr. Jarrett. He is doing very well. He's been up ambulating with assistance. On room air. No shortness of breath, cough or congestion. White count improving.test x-ray showing improvement of the pulmonary edema. Discontinue IV Solu-Medrol. Probable discharge in the a.m. I, the cosigning physician, performed a history & physical examination of the patient. Lungs sounds are clear. Maintaining good O2 saturations in the 90s on room air. I discussed the assessment and plan of care with my nurse practitioner, Kae Lipscomb. I attest to the above note as dictated by her.
[2019-03-03] MEDS: ATORVASTATIN 80 MG TAB PO SCH (21:28)
[2019-03-04] MEDS: PANTOPRAZOLE 40 MG TABLET PO SCH (06:32)
[2019-03-04] MEDS: IPRATROPIUM-ALBUTEROL 3 ML NEB INHALATION SCH ×2 (08:01→12:00)
[2019-03-04] MEDS: TICAGRELOR 90 MG TAB PO SCH (08:07)
[2019-03-04] MEDS: METOPROLOL TARTRATE 12.5 MG TAB PO SCH (08:07)
[2019-03-04] MEDS: FUROSEMIDE 10 MG/ML 4 ML VIAL IV SCH (08:08)
[2019-03-04] MEDS: ASPIRIN 81 MG PO SCH (08:08)
[2019-03-04] MEDS: methylPREDNISolone SOD SUCCI 40 MG/ML 1 ML VIAL IV SCH (08:08)
[2019-03-04] MEDS: SPIRONOLACTONE 25 MG TAB PO SCH (08:08)
[2019-03-04 08:35] VITALS: TEMP 97.7
[2019-03-04] MEDS: SODIUM CHLORIDE 0.9% 1,000 ML IV SCH (11:47)
--- NOTE | 2019-03-04 12:29 | P.PN ---
Subjective Progress Note Date: 03/04/19 This is a 53-year-old gentleman with history of chronic smoking who was admitted to the hospital with cardiopulmonary arrest and ventricular fibrillation. Patient had sex we'll stenting of the left anterior descending and circumflex coronary artery. Patient had evidence of congestive heart failure.. Patient is feeling much better today. Doesn't appear to be acute distress and wants to go home. His lungs are clear. Heart is regular. Patient's IV Lasix could be discontinued and started on by mouth Lasix. Patient could be discharged home. Follow-up in the office Objective - Vital Signs Vital signs: Vital Signs Temp 97.7 F 03/04/19 08:00 Pulse 90 03/04/19 08:14 Resp 18 03/04/19 08:00 BP 116/72 03/04/19 08:00 Pulse Ox 95 03/04/19 08:00 Intake & Output 03/03/19 03/04/19 03/04/19 18:59 06:59 18:59 Intake Total 770 540 360 Output Total 1000 900 Balance -230 -360 360 Weight 111.8 kg Intake: Intake, IV Titration 50 Amount cefTRIAXone 2 gm In 50 Sodium Chloride 0.9% 50 ml @ 100 mls/hr IVPB Q24HR [facility] Rx#:[id number] Oral 720 540 360 Output: Urine 1000 900 Other: Voiding Method Toilet Urinal # Voids 1 1 ABP, PAP, CO, CI - Last Documented Arterial Blood Pressure 99/69 - Exam GENERAL EXAM: Patient is alert and oriented and doesn't appear to be in any acute distress HEENT: Normocephalic. Normal reaction of pupils, equal size, normal range of extraocular motion. No erythema or exudates in the throat. NECK: No masses, no nuchal rigidity. CHEST: No chest wall deformity. LUNGS: Equal air entry with no crackles or wheeze. HEART: S1 and S2 normal with no audible mumurs or gallops. Regular rhythm, femorals equal on both sides.. ABDOMEN: No hepatosplenomegaly, normal bowel sounds, no guarding or rigidity. SKIN: No rashes CENTRAL NERVOUS SYSTEM: No focal deficits. EXTREMITIES: No cyanosis, clubbing or edema. - Labs CBC & Chem 7: 03/03/19 06:03 03/03/19 06:03 Labs: Microbiology - Last 24 Hours (Table) 03/01/19 00:30 Gram Stain - Final Sputum Sputum Culture - Final Assessment and Plan (1) Ischemic cardiomyopathy Current Visit: Yes Status: Acute Code(s): I25.5 - ISCHEMIC CARDIOMYOPATHY SNOMED Code(s): 114503537 (2) Acute respiratory failure Current Visit: Yes Status: Acute Code(s): J96.00 - ACUTE RESPIRATORY FAILURE, UNSP W HYPOXIA OR HYPERCAPNIA SNOMED Code(s): 53607824 (3) Cardiac arrest Current Visit: Yes Status: Acute Code(s): I46.9 - CARDIAC ARREST, CAUSE UNSPECIFIED SNOMED Code(s): 991230958 (4) ST elevation (STEMI) myocardial infarction Current Visit: Yes Status: Acute Code(s): I21.3 - ST ELEVATION (STEMI) MYOCARDIAL INFARCTION OF [facility] SITE SNOMED Code(s): 63136007 (5) Ventricular fibrillation Current Visit: Yes Status: Acute Code(s): I49.01 - VENTRICULAR FIBRILLATION SNOMED Code(s): 33158210 (6) Acute systolic heart failure Current Visit: Yes Status: Acute Code(s): I50.21 - ACUTE SYSTOLIC (CONGESTIVE) HEART FAILURE SNOMED Code(s): 557820071 Plan: Continue current medical therapy. Discontinue IV Lasix. Start by mouth medications. Possible discharge
[2019-03-04 13:06] VITALS: BP 101/65; PULSE 62; RESP 17
[2019-03-04] MEDS ORDERED: predniSONE 20 MG TAB PO SCH (13:45)
[2019-03-05] MEDS ORDERED: FUROSEMIDE 40 MG TAB PO SCH (09:00)
== END 2019-03-04 14:38 | disposition home health service (06) | DRG 246 ==
LOC: EC 20:00 → 2SICU 20:35 → 3SCARD 03-01 12:47
PROVIDERS: ADMIT Internal Medicine; ATTEND Internal Medicine
PROC: 5A1955Z Respiratory Ventilation, Greater than 96 Consecutive Hours (ICD-10-PCS; 2019-02-20)
PROC: 0BH17EZ Insertion of Endotracheal Airway into Trachea, Via Natural or Artificial Opening (ICD-10-PCS; 2019-02-20)
PROC: 5A12012 Performance of Cardiac Output, Single, Manual (ICD-10-PCS; 2019-02-20)
PROC: 027136Z Dilation of Coronary Artery, Two Arteries with Three Drug-eluting Intraluminal Devices, Percutaneous Approach (ICD-10-PCS; principal; 2019-02-20 20:19)
PROC: 4A023N7 Measurement of Cardiac Sampling and Pressure, Left Heart, Percutaneous Approach (ICD-10-PCS; 2019-02-20 20:19)
PROC: B2111ZZ Fluoroscopy of Multiple Coronary Arteries using Low Osmolar Contrast (ICD-10-PCS; 2019-02-20 20:19)
PROC: 03HY32Z Insertion of Monitoring Device into Upper Artery, Percutaneous Approach (ICD-10-PCS; 2019-02-22)
PROC: 4A133B1 Monitoring of Arterial Pressure, Peripheral, Percutaneous Approach (ICD-10-PCS; 2019-02-22)
PROC: 4A133J1 Monitoring of Arterial Pulse, Peripheral, Percutaneous Approach (ICD-10-PCS; 2019-02-22)
PROC: 0B9D8ZX Drainage of Right Middle Lung Lobe, Via Natural or Artificial Opening Endoscopic, Diagnostic (ICD-10-PCS; 2019-02-24)
DX: I21.09 ST elevation (STEMI) myocardial infarction involving other coronary artery of anterior wall (principal); I46.2 Cardiac arrest due to underlying cardiac condition; I49.01 Ventricular fibrillation; I50.21 Acute systolic (congestive) heart failure; J69.0 Pneumonitis due to inhalation of food and vomit; K72.00 Acute and subacute hepatic failure without coma; J15.6 Pneumonia due to other Gram-negative bacteria; J96.01 Acute respiratory failure with hypoxia; E87.3 Alkalosis; G93.1 Anoxic brain damage, not elsewhere classified; I47.2 Ventricular tachycardia; K92.2 Gastrointestinal hemorrhage, unspecified; J44.1 Chronic obstructive pulmonary disease with (acute) exacerbation; I25.5 Ischemic cardiomyopathy; K70.10 Alcoholic hepatitis without ascites; I25.10 Atherosclerotic heart disease of native coronary artery without angina pectoris; F10.129 Alcohol abuse with intoxication, unspecified; E87.6 Hypokalemia; F17.210 Nicotine dependence, cigarettes, uncomplicated; N52.9 Male erectile dysfunction, unspecified; Z79.82 Long term (current) use of aspirin; Z79.899 Other long term (current) drug therapy; Z87.01 Personal history of pneumonia (recurrent); Y90.7 Blood alcohol level of 200-239 mg/100 ml
CPT/HCPCS: 31500; 31624; 36415; 36600; 70450; 71045; 71046; 76700; 80048; 80053; 80074; 80076; 80202; 80320; 81001; 81003; 82150; 82271; 82550; 82553; 82805; 83605; 83690; 83735; 84100; 84132; 84145; 84484; 85025; 85027; 85347; 85610; 85730; 86850; 86900; 86901; 87040; 87070; 87086; 87102; 87205; 87252; 87496; 87498; 87502; 87529; 87634; 87798; 88108; 88305; 89050; 92950; 93306; 93458; 94002; 94003; 94640; 94760; 99291; C1874

== ENCOUNTER 2020-08-28 19:59 | Emergency (ER) | payer BC ==
[2020-08-28] MEDS ORDERED: SODIUM CHLORIDE 0.9% 1,000 ML IV STA (20:59)
[2020-08-28 21:22] LABS: Basophils # (A) 0.1 k/uL (0-0.2); Basophils % (A) 1 %; Eosinophils # (A) 0.3 k/uL (0-0.7); Eosinophils % (A) 3 %; HCT 50.2 % (39.0-53.0); HGB 16.9 gm/dL (13.0-17.5); Lymphocytes # (A) 2.3 k/uL (1.0-4.8); Lymphocytes % (A) 24 %; MCH 31.9 pg (25.0-35.0); MCHC 33.7 g/dL (31.0-37.0); MCV 94.8 fL (80.0-100.0); Mean Platelet Volume 8.4; Monocytes # (A) 0.5 k/uL (0-1.0); Monocytes % (A) 5 %; Neutrophils # (A) 6.7 k/uL (1.3-7.7); Neutrophils % (A) 67 %; Platelet Count 171 k/uL (150-450); RDW 13.8 % (11.5-15.5)
--- NOTE | 2020-08-28 21:22 | XR ---
EXAMINATION TYPE: XR chest 2V DATE OF EXAM: 08/28/2020 COMPARISON: 03/03/2019 HISTORY: Short of breath. Cough. TECHNIQUE: FINDINGS: Heart and mediastinum are normal. Lungs are clear of consolidation. There are no hilar mass es. Costophrenic angles are clear. IMPRESSION: No active cardiopulmonary disease. Normal heart. There is clearing of the pulmonary inter stitial edema compared to old exam.
[2020-08-28 21:39] LABS: ALT 83 U/L (4-49); AST 66 U/L (17-59); African American GFR (CKD) >90 (>60 ml/min/1.73 sqM); Albumin 4.6 g/dL (3.5-5.0); Alkaline Phosphatase 51 U/L (38-126); Anion Gap 13 mmol/L; Blood Urea Nitrogen 12 mg/dL (9-20); Carbon Dioxide 26 mmol/L (22-30); Chloride 103 mmol/L (98-107); Glucose 105 mg/dL (74-99); Magnesium 2.2 mg/dL (1.6-2.3); Non-African American GFR(CKD) 84 (>60 ml/min/1.73 sqM); Potassium 3.7 mmol/L (3.5-5.1); Sodium 142 mmol/L (137-145); Total Bilirubin 0.6 mg/dL (0.2-1.3); Total Protein 7.6 g/dL (6.3-8.2)
--- NOTE | 2020-08-28 21:40 | ED ---
General Adult HPI - General Chief complaint: Syncope Stated complaint: Syncope,SOB Time Seen by Provider: 08/28/20 20:51 Source: patient Mode of arrival: wheelchair Limitations: no limitations - History of Present Illness Initial comments: Patient is a 54-year-old male with history of heart disease, presenting to the emergency Department with complaints of a cough with 2 syncopal events today. Patient states he's had a cough for the past 4-5 days. He states today he had 2 syncopal events after coughing fits. He states the first time happened he was sitting, talking on the phone with his mother when he started coughing, and then passed out for about 30 seconds. When he came to he heard his mother asking if he was still there. He states about an hour to 2 hours ago, he was at a bar, drinking when again he started having coughing fits and lost consciousness for about 30 seconds. The people around him was asking him what happened. Patient states he has a history of heart disease with 3 stent placements, cardiac arrest 2 years ago. He states he has had pneumonia at that time. Patient denies history of blood clots, he denies any chest pain at this time, no shortness of breath. He denies any fevers or chills, no nausea or vomiting, no abdominal pain. He states he takes no medications. He is a daily alcohol drinker, "some days more than others". He is an every day smoker as well, no other drug use. He has no further complaints at this time. Upon arrival to the ER, he is at 94% on room air, rest of vitals normal. - Related Data Home Medications Medication Instructions Recorded Confirmed Aspirin 81 mg PO HS 08/28/20 08/28/20 Allergies Allergy/AdvReac Type Severity Reaction Status Date / Time No Known Allergies Allergy Verified 08/28/20 21:41 Review of Systems ROS Statement: Those systems with pertinent positive or pertinent negative responses have been documented in the HPI. ROS Other: All systems not noted in ROS Statement are negative. Past Medical History Past Medical History: No Reported History History of Any Multi-Drug Resistant Organisms: None Reported Past Surgical History: No Surgical Hx Reported Past Anesthesia/Blood Transfusion Reactions: No Reported Reaction Past Psychological History: No Psychological Hx Reported Smoking Status: Current every day smoker Past Alcohol Use History: Occasional Past Drug Use History: None Reported General Exam - General Exam Comments Initial Comments: GENERAL: Patient is well-developed and well-nourished. Patient is nontoxic and in no acute distress. HEAD: Atraumatic, normocephalic. EYES: Pupils equal round and reactive to light, extraocular movements intact, sclera anicteric, conjunctiva are normal. Eyelids were unremarkable. ENT: TMs normal, nares patent, oropharynx clear without exudates. Moist mucous membranes. NECK: Normal range of motion, supple without lymphadenopathy or JVD. LUNGS: Unlabored respirations. Breath sounds clear to auscultation bilaterally and equal. No wheezes rales or rhonchi. HEART: Regular rate and rhythm without murmurs, rubs or gallops. ABDOMEN: Soft, nontender, normoactive bowel sounds. No guarding, no rebound. No masses appreciated. : Deferred MUSCULOSKELETAL: Normal extremities with adequate strength and normal range of motion, no pitting or edema. No clubbing or cyanosis. NEUROLOGICAL: Patient is alert and oriented x 3. Motor and sensory are also intact. Cranial nerves II through XII grossly intact. Symmetrical smile. Normal speech, normal gait. PSYCH: Normal mood, normal affect. SKIN: Warm, Dry, normal turgor, no rashes or lesions noted. Limitations: no limitations Course Vital Signs 08/28/20 08/28/20 20:04 22:50 Temperature 98.1 F 98.4 F Pulse Rate 98 100 Respiratory 18 20 Rate Blood Pressure 109/74 112/80 O2 Sat by Pulse 94 L 95 Oximetry EKG Findings - EKG Comments: EKG Findings:: Sinus tach, possible left atrial enlargement, anteroseptal infarct, age undetermined, no signs of an acute process. Ventricular rate 104, CT interval 140, QT 366. Medical Decision Making - Medical Decision Making Patient is a 54-year-old male with history of severe heart disease, presents to day after having 2 syncopal events after coughing really hard today. He's had a cough for the last 4-5 days. No chest pain or shortness of breath on arrival, his EKG shows sinus tach at 104, no other acute process. Lab work is within normal limits except for liver enzymes being slightly elevated. D-dimer is normal at 0.41, troponin is normal, urine shows no acute abnormality, rapid Covid is negative and chest x-ray reveals no acute process. Patient has a resting cochlear here in the ER. I did review past echo which does reveal some heart failure. I did recommend admission for cardiac consult given his 2 syncopal events today. Patient refuses to stay, he states he just wants to follow-up outpatient with his cardiology. I discussed with him the complications that could arise such as cardiac event, cardiac arrest and . Patient continues to want to leave. Patient will sign out AMA. Case discussed with Dr. Abbott. - Lab Data Result diagrams: 08/28/20 21:00 08/28/20 21:00 Lab Results 08/28/20 08/28/20 08/28/20 Range/Units 21:00 21:00 21:00 WBC 10.0 (3.8-10.6) k/uL RBC 5.30 (4.30-5.90) m/uL Hgb 16.9 (13.0-17.5) gm/dL Hct 50.2 (39.0-53.0) % MCV 94.8 (80.0-100.0) fL MCH 31.9 (25.0-35.0) pg MCHC 33.7 (31.0-37.0) g/dL RDW 13.8 (11.5-15.5) % Plt Count 171 (150-450) k/uL MPV 8.4 Neutrophils % 67 % Lymphocytes % 24 % Monocytes % 5 % Eosinophils % 3 % Basophils % 1 % Neutrophils # 6.7 (1.3-7.7) k/uL Lymphocytes # 2.3 (1.0-4.8) k/uL Monocytes # 0.5 (0-1.0) k/uL Eosinophils # 0.3 (0-0.7) k/uL Basophils # 0.1 (0-0.2) k/uL PT 10.8 (9.0-12.0) sec INR 1.0 (<1.2) APTT 21.8 L (22.0-30.0) sec D-Dimer (<0.60) mg/L FEU Sodium 142 (137-145) mmol/L Potassium 3.7 (3.5-5.1) mmol/L Chloride 103 (98-107) mmol/L Carbon Dioxide 26 (22-30) mmol/L Anion Gap 13 mmol/L BUN 12 (9-20) mg/dL Creatinine 1.01 (0.66-1.25) mg/dL Est GFR (CKD-EPI)AfAm >90 (>60 ml/min/1.73 sqM) Est GFR (CKD-EPI)NonAf 84 (>60 ml/min/1.73 sqM) Glucose 105 H (74-99) mg/dL Calcium 10.0 (8.4-10.2) mg/dL Magnesium 2.2 (1.6-2.3) mg/dL Total Bilirubin 0.6 (0.2-1.3) mg/dL AST 66 H (17-59) U/L ALT 83 H (4-49) U/L Alkaline Phosphatase 51 (38-126) U/L Troponin I (0.000-0.034) ng/mL Total Protein 7.6 (6.3-8.2) g/dL Albumin 4.6 (3.5-5.0) g/dL Urine Color Urine Appearance (Clear) Urine pH (5.0-8.0) Ur Specific [place] (1.001-1.035) Urine Protein (Negative) Urine Glucose (UA) (Negative) Urine Ketones (Negative) Urine Blood (Negative) Urine Nitrite (Negative) Urine Bilirubin (Negative) Urine Urobilinogen (<2.0) mg/dL Ur Leukocyte Esterase (Negative) Coronavirus (PCR) (Not Detectd) 08/28/20 08/28/20 08/28/20 Range/Units 21:00 21:00 21:00 WBC (3.8-10.6) k/uL RBC (4.30-5.90) m/uL Hgb (13.0-17.5) gm/dL Hct (39.0-53.0) % MCV (80.0-100.0) fL MCH (25.0-35.0) pg MCHC (31.0-37.0) g/dL RDW (11.5-15.5) % Plt Count (150-450) k/uL MPV Neutrophils % % Lymphocytes % % Monocytes % % Eosinophils % % Basophils % % Neutrophils # (1.3-7.7) k/uL Lymphocytes # (1.0-4.8) k/uL Monocytes # (0-1.0) k/uL Eosinophils # (0-0.7) k/uL Basophils # (0-0.2) k/uL PT (9.0-12.0) sec INR (<1.2) APTT (22.0-30.0) sec D-Dimer 0.41 (<0.60) mg/L FEU Sodium (137-145) mmol/L Potassium (3.5-5.1) mmol/L Chloride (98-107) mmol/L Carbon Dioxide (22-30) mmol/L Anion Gap mmol/L BUN (9-20) mg/dL Creatinine (0.66-1.25) mg/dL Est GFR (CKD-EPI)AfAm (>60 ml/min/1.73 sqM) Est GFR (CKD-EPI)NonAf (>60 ml/min/1.73 sqM) Glucose (74-99) mg/dL Calcium (8.4-10.2) mg/dL Magnesium (1.6-2.3) mg/dL Total Bilirubin (0.2-1.3) mg/dL AST (17-59) U/L ALT (4-49) U/L Alkaline Phosphatase (38-126) U/L Troponin I <0.012 (0.000-0.034) ng/mL Total Protein (6.3-8.2) g/dL Albumin (3.5-5.0) g/dL Urine Color Urine Appearance (Clear) Urine pH (5.0-8.0) Ur Specific [place] (1.001-1.035) Urine Protein (Negative) Urine Glucose (UA) (Negative) Urine Ketones (Negative) Urine Blood (Negative) Urine Nitrite (Negative) Urine Bilirubin (Negative) Urine Urobilinogen (<2.0) mg/dL Ur Leukocyte Esterase (Negative) Coronavirus (PCR) Not Detected (Not Detectd) 08/28/20 Range/Units 21:05 WBC (3.8-10.6) k/uL RBC (4.30-5.90) m/uL Hgb (13.0-17.5) gm/dL Hct (39.0-53.0) % MCV (80.0-100.0) fL MCH (25.0-35.0) pg MCHC (31.0-37.0) g/dL RDW (11.5-15.5) % Plt Count (150-450) k/uL MPV Neutrophils % % Lymphocytes % % Monocytes % % Eosinophils % % Basophils % % Neutrophils # (1.3-7.7) k/uL Lymphocytes # (1.0-4.8) k/uL Monocytes # (0-1.0) k/uL Eosinophils # (0-0.7) k/uL Basophils # (0-0.2) k/uL PT (9.0-12.0) sec INR (<1.2) APTT (22.0-30.0) sec D-Dimer (<0.60) mg/L FEU Sodium (137-145) mmol/L Potassium (3.5-5.1) mmol/L Chloride (98-107) mmol/L Carbon Dioxide (22-30) mmol/L Anion Gap mmol/L BUN (9-20) mg/dL Creatinine (0.66-1.25) mg/dL Est GFR (CKD-EPI)AfAm (>60 ml/min/1.73 sqM) Est GFR (CKD-EPI)NonAf (>60 ml/min/1.73 sqM) Glucose (74-99) mg/dL Calcium (8.4-10.2) mg/dL Magnesium (1.6-2.3) mg/dL Total Bilirubin (0.2-1.3) mg/dL AST (17-59) U/L ALT (4-49) U/L Alkaline Phosphatase (38-126) U/L Troponin I (0.000-0.034) ng/mL Total Protein (6.3-8.2) g/dL Albumin (3.5-5.0) g/dL Urine Color Light Yellow Urine Appearance Clear (Clear) Urine pH 5.5 (5.0-8.0) Ur Specific [place] 1.004 (1.001-1.035) Urine Protein Negative (Negative) Urine Glucose (UA) Negative (Negative) Urine Ketones Negative (Negative) Urine Blood Negative (Negative) Urine Nitrite Negative (Negative) Urine Bilirubin Negative (Negative) Urine Urobilinogen <2.0 (<2.0) mg/dL Ur Leukocyte Esterase Negative (Negative) Coronavirus (PCR) (Not Detectd) Disposition Clinical Impression: Syncope Disposition: Left Against Medical Advice Condition: Stable Additional Instructions: Please return to the Emergency Department if symptoms worsen or any other concerns. 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 Is patient prescribed a controlled substance at d/c from ED?: No Referrals: Jamie Armas DO [Primary Care Provider] - 1-2 days
[2020-08-28 21:41] LABS: Prothrombin Time 10.8 sec (9.0-12.0)
[2020-08-28 21:45] LABS: Partial Thromboplastin Time 21.8 sec (22.0-30.0)
[2020-08-28 21:50] LABS: Appearance,Urine Clear (Clear); Bilirubin,Urine Negative (Negative); Blood,Urine Negative (Negative); Color,Urine Light Yellow; Glucose,Urine (UA) Negative (Negative); Ketones,Urine Negative (Negative); Leukocyte Esterase,Urine Negative (Negative); Nitrite,Urine Negative (Negative); PH, Urine 5.5 (5.0-8.0); Protein,Urine Negative (Negative); Specific Gravity,Urine 1.004 (1.001-1.035); Urobilinogen,Urine <2.0 mg/dL (<2.0)
[2020-08-28 22:53] VITALS: BP 112/80; PULSE 100; RESP 20; TEMP 98.4
== END 2020-08-28 22:53 | disposition left against medical advice (07) ==
LOC: EC 19:59
DX: R55 Syncope and collapse (principal); F17.200 Nicotine dependence, unspecified, uncomplicated; Z79.82 Long term (current) use of aspirin; Z53.29 Procedure and treatment not carried out because of patient's decision for other reasons
CPT/HCPCS: 36415; 71046; 80053; 81003; 83735; 84484; 85025; 85379; 85610; 85730; 87635; 93005; 96360; 99284